=== PATIENT | male | born 1950 | race Caucasian/White ===

== ENCOUNTER → 2018-07-23 13:21 | Outpatient (CLI) | payer MEDICARE, SELFPAY | PROVIDERS: Family Provider Family Medicine; PCP Family Medicine; Visit Provider Physician Assistant | DX: L02.91 Cutaneous abscess, unspecified (principal) | CPT/HCPCS: 87070; 87075; 87077; 87147; 87186; 87205 ==

== ENCOUNTER → 2018-11-29 08:38 | Outpatient (CLI) | payer MEDICARE, SELFPAY ==
--- NOTE | 2018-11-29 | DI.MRI.S_ITS ---
PROCEDURE: MR SHOULDER LT WO CON INDICATIONS: ROTATOR CUFF TEAR OF LEFT SHOULDER TECHNIQUE: Noncontrast oblique coronal T2 fast spin echo with fat saturation, oblique sagittal T1 spin echo and T2 fast spin echo with fat saturation, axial T1 spin echo and T2 fast spin echo with fat saturation through the shoulder. COMPARISON: [facility] [place], CR, XR SHOULDER 2+ VIEWS BILATERAL, 10/14/2018, 14:47. FINDINGS: Image quality: Excellent. Rotator cuff: Partial thickness bursal sided tear of the supraspinatus tendon is noted measuring approximately 1.8 cm in AP dimension on sagittal image 17 series 10. This probably involves 50% of tendon thickness. There is articular sided infraspinatus partial-thickness tear and surface fraying. The teres minor appears intact. Thickening and tendinopathy of the subscapularis tendon without discrete tear. No atrophy of rotator cuff musculature Bones and bursae: No bone marrow contusions or fractures. Moderate acromioclavicular joint degeneration. There is also glenohumeral degenerative joint disease. The acromion demonstrates conventional anatomy, without an os acromiale. Mild subacromial/subdeltoid bursal fluid. Capsule and soft tissues: There is poor definition of the posterosuperior labrum with heterogeneous signal intensity and surrounding inflammation. This suggests age-indeterminate labral tear. The long head of the biceps tendon demonstrates normal location and morphology. The rotator interval appears normal, without fibrosis. The coracohumeral ligament is normal in thickness. Within the subscapular recess, there is a 1.5 cm low signal loose body. Adjacent smaller 8mm linear low signal presumes body or debris also noted on image 3 series 8. IMPRESSION: Low signal although probably nonossified (not definitively visible on comparison radiographs) pair of loose bodies involving the subscapular recess measuring up to 1.5 cm Partial thickness bursal sided tear of the supraspinatus tendon. Articular sided partial thickness tear of the infraspinatus tendon Subscapularis tendinopathy and thickening. Mild subacromial/subdeltoid bursitis. Age-indeterminate posterosuperior labral tear Dictated by: Joe Spring M.D. on 12/01/2018 at 8:39 Approved by: Joe Spring M.D. on 12/01/2018 at 8:50
== END ==
PROVIDERS: Family Provider Family Medicine; PCP Family Medicine; Visit Provider Orthopaedic Surgery
DX: M75.112 Incomplete rotator cuff tear or rupture of left shoulder, not specified as traumatic (principal); M75.52 Bursitis of left shoulder; S43.492A Other sprain of left shoulder joint, initial encounter
CPT/HCPCS: 73221

== ENCOUNTER → 2019-01-01 11:03 | Outpatient (CLI) | payer MEDICARE, SELFPAY | PROVIDERS: Family Provider Family Medicine; PCP Family Medicine; Visit Provider Physician Assistant | DX: L02.91 Cutaneous abscess, unspecified (principal) | CPT/HCPCS: 87070; 87077; 87147; 87186; 87205 ==

== ENCOUNTER → 2019-03-16 11:24 | Outpatient (CLI) | payer MEDICARE, SELFPAY ==
--- NOTE | 2019-03-16 11:27 | DI.RAD.S_ITS ---
PROCEDURE: XR CHEST 2V INDICATIONS: Cough TECHNIQUE: 2 views of the chest were acquired. COMPARISON: [facility], , CHEST 2 VIEW, 07/10/2016, 14:32. FINDINGS: Surgical changes and devices: None. Lungs and pleura: There is developing airspace disease identified at the right lung base. No lobar consolidation, effusion, or pneumothorax is evident. There appear to be chronic interstitial changes throughout the lungs. Mediastinum: Mediastinal contours are normal. Heart size is normal. Bones and chest wall: No suspicious bony abnormalities. Soft tissues appear unremarkable. IMPRESSION: Developing right lower lobe pneumonia. Dictated by: Lobo Guthrie M.D. on 03/16/2019 at 10:49 Approved by: Lobo Guthrie M.D. on 03/16/2019 at 10:50
== END ==
PROVIDERS: PCP Family Medicine; Visit Provider Physician Assistant
DX: J18.9 Pneumonia, unspecified organism (principal)
CPT/HCPCS: 71046

== ENCOUNTER → 2019-04-13 11:15 | Outpatient (CLI) | payer MEDICARE, SELFPAY ==
[2019-04-13 12:12] LABS: Add Manual Diff / Slide Review NO; Basophils Absolute Auto 100 /uL (0-100); Basophils Percent Auto 1.4 % (0-2); Eosinophils Absolute Auto 200 /uL (0-450); Eosinophils Percent Auto 2.6 % (2-4); Hematocrit 44.3 % (41-53); Hemoglobin 15.4 g/dL (13.5-17.5); Lymphocytes Absolute Auto 2200 /uL (1100-4500); Lymphocytes Percent Auto 37.7 % (25-40); Mean Corpuscular HGB Conc 34.8 % (30-36); Mean Corpuscular Hemoglobin 31.7 PG (26-34); Mean Corpuscular Volume 91.3 fL (80-100); Monocytes Absolute Auto 400 /uL (0-900); Monocytes Percent Auto 7.3 % (3-14); Neutrophils Absolute Auto 3000 /uL (1500-7000); Platelet Count 120 X10^3/uL (150-400); Red Blood Cell Count 4.85 X10^6/uL (4.5-5.9); Red Cell Distribution Width 12.7 % (11.6-14.8)
[2019-04-13 12:42] LABS: Alanine Aminotransferase 50 IU/L (21-72); Albumin 4.1 g/dL (3.5-5.0); Albumin Globulin Ratio 0.9 (1.0-2.8); Alkaline Phosphatase 110 U/L (38-126); Aspartate Aminotransferase 51 IU/L (17-59); BUN Creatinine Ratio 15.7 (6-22); Bilirubin Total 1.7 mg/dL (0.2-1.3); Blood Urea Nitrogen 11 mg/dL (9-20); Calcium 9.8 mg/dL (8.4-10.2); Carbon Dioxide 27 mmol/L (22-32); Chloride 103 mmol/L (98-107); Cholesterol 129 mg/dL (140-199); Estimated Glomerular Filt Rate > 60.0 mL/min (>60); Globulin 4.4 g/dL (1.7-4.1); Glucose 257 mg/dL (80-110); HDL Cholesterol 40 mg/dL (40-60); HEMOLYSIS < 15 (0-50); LDL Cholesterol Calculated 55 mg/dL (<100); Potassium 3.9 mmol/L (3.4-5.1); Sodium 139 mmol/L (137-145); Total Protein 8.5 g/dL (6.3-8.2); Triglycerides 168 mg/dL (35-150)
[2019-04-13 13:10] LABS: Thyroid Stimulating Hormone < 0.02 uIU/mL (0.47-4.68)
[2019-04-13 13:11] LABS: Prostate Specific Antigen Scrn 0.563 ng/mL (0.1-4.0)
[2019-04-13 15:55] LABS: Hemoglobin A1C% w Est Avg Glu 9.7 % (4.0-6.0)
== END ==
PROVIDERS: PCP Family Medicine; Visit Provider Family Medicine
DX: E78.2 Mixed hyperlipidemia (principal); G47.33 Obstructive sleep apnea (adult) (pediatric); I77.9 Disorder of arteries and arterioles, unspecified; K50.119 Crohn's disease of large intestine with unspecified complications; Z12.5 Encounter for screening for malignant neoplasm of prostate; Z13.29 Encounter for screening for other suspected endocrine disorder
CPT/HCPCS: 36415; 80053; 80061; 83036; 84443; 85025; G0103

== ENCOUNTER → 2019-04-28 18:46 | Outpatient (CLI) | payer MEDICARE, SELFPAY ==
--- NOTE | 2019-04-28 18:50 | DI.MRI.S_ITS ---
PROCEDURE: MR HEAD/BRAIN WO CON INDICATIONS: Memory impairment TECHNIQUE: Noncontrast axial T1 spin echo, axial T2 fast spin echo, sagittal and axial FLAIR, coronal T2 fast spin echo, axial gradient echo, axial diffusion and ADC through the brain. COMPARISON: None. FINDINGS: Image quality: Excellent. CSF Spaces: Basal cisterns are patent. No extra-axial fluid collections. Ventricles are normal in size and shape. Brain: No intracranial masses or hemorrhage. Tenorio/white matter interface is normal. Brainstem appears normal. Diffusion-weighted images demonstrate no acute ischemic insult. No chronic ischemic insults. Normal intravascular flow voids are present. Skull and face: Calvarium has normal marrow signal. Orbits appear normal. Sinuses: Sinuses and mastoids are clear. IMPRESSION: Minimal microvascular atherosclerotic change, no sign of prior stroke. No mass or hemorrhage is found. Source of memory impairment is not identified. Dictated by: Arthur Guillen M.D. on 04/29/2019 at 9:35 Approved by: Arthur Guillen M.D. on 04/29/2019 at 9:36
== END ==
PROVIDERS: PCP Family Medicine; Visit Provider Family Medicine
DX: R41.3 Other amnesia (principal)
CPT/HCPCS: 70551

== ENCOUNTER → 2019-05-07 07:43 | Outpatient (CLI) | payer MEDICARE, SELFPAY ==
[2019-05-07 08:42] LABS: Hemoglobin A1C% w Est Avg Glu 8.7 % (4.0-6.0)
[2019-05-07 08:46] LABS: BUN Creatinine Ratio 16.3 (6-22); Blood Urea Nitrogen 13 mg/dL (9-20); Calcium 9.9 mg/dL (8.4-10.2); Carbon Dioxide 27 mmol/L (22-32); Chloride 104 mmol/L (98-107); Estimated Glomerular Filt Rate > 60.0 mL/min (>60); Glucose 110 mg/dL (80-110); HEMOLYSIS < 15 (0-50); Sodium 141 mmol/L (137-145)
[2019-05-07 09:04] LABS: Free T3, Triiodothyronine Free 3.38 pg/mL (2.77-5.27); Free T4, Direct Thyroxine 0.91 ng/dL (0.78-2.19)
[2019-05-07 09:18] LABS: Thyroid Stimulating Hormone 0.02 uIU/mL (0.47-4.68)
== END ==
PROVIDERS: PCP Family Medicine; Visit Provider Family Medicine
DX: R79.89 Other specified abnormal findings of blood chemistry (principal); E11.9 Type 2 diabetes mellitus without complications
CPT/HCPCS: 36415; 80048; 83036; 84439; 84443; 84481

== ENCOUNTER → 2019-05-27 07:31 | Outpatient (CLI) | payer MEDICARE, SELFPAY ==
--- NOTE | 2019-05-27 07:35 | DI.US.S_ITS ---
PROCEDURE: US THYROID INDICATIONS: HYPERTHYROIDISM TECHNIQUE: Real-time scanning was performed of the thyroid gland, with image documentation. COMPARISON: None. FINDINGS: Right: Thyroid lobe measures 4.1 x 1.9 x 1.5 cm, and is homogeneous in echotexture. Left: Thyroid lobe measures 3.6 x 1.5 x 1.1 cm, and is homogenous in echotexture. Isthmus: 5.0 mm thick. IMPRESSION: Normal thyroid. Dictated by: Jonel DESAI Interpreted: Katie Romo MD on 05/27/2019 at 9:39 Approved by: Katie Romo M.D. on 05/27/2019 at 13:32
== END ==
PROVIDERS: PCP Family Medicine; Visit Provider Family Medicine
DX: E05.90 Thyrotoxicosis, unspecified without thyrotoxic crisis or storm (principal)
CPT/HCPCS: 76536

== ENCOUNTER → 2019-06-26 08:41 | Outpatient (CLI) | payer MEDICARE, SELFPAY ==
[2019-06-26 10:27] LABS: BUN Creatinine Ratio 21.4 (6-22); Blood Urea Nitrogen 15 mg/dL (9-20); Calcium 9.8 mg/dL (8.4-10.2); Carbon Dioxide 26 mmol/L (22-32); Chloride 103 mmol/L (98-107); Estimated Glomerular Filt Rate > 60.0 mL/min (>60); Glucose 148 mg/dL (80-110); HEMOLYSIS 18 (0-50); Potassium 3.7 mmol/L (3.4-5.1); Sodium 139 mmol/L (137-145)
[2019-06-26 10:40] LABS: Hemoglobin A1C% w Est Avg Glu 5.8 % (4.0-6.0)
[2019-06-26 11:30] LABS: Thyroid Stimulating Hormone 0.45 uIU/mL (0.47-4.68)
[2019-07-01 17:56] LABS: Anti Thyroglobulin Antibody < 1 IU/mL (< 2); Thyroid Peroxidase Antibodies 1 IU/mL (< 9)
== END ==
PROVIDERS: PCP Family Medicine; Visit Provider Family Medicine
DX: E05.90 Thyrotoxicosis, unspecified without thyrotoxic crisis or storm (principal); R73.09 Other abnormal glucose
CPT/HCPCS: 36415; 80048; 83036; 84443; 86376; 86800

== ENCOUNTER → 2019-08-27 10:07 | Outpatient (CLI) | payer MEDICARE, SELFPAY ==
[2019-08-27 11:31] LABS: BUN Creatinine Ratio 16.7 (6-22); Blood Urea Nitrogen 15 mg/dL (9-20); Calcium 10.2 mg/dL (8.4-10.2); Carbon Dioxide 26 mmol/L (22-32); Chloride 104 mmol/L (98-107); Estimated Glomerular Filt Rate > 60.0 mL/min (>60); Glucose 118 mg/dL (80-110); HEMOLYSIS < 15 (0-50); Potassium 4.4 mmol/L (3.4-5.1); Sodium 141 mmol/L (137-145)
[2019-08-27 12:12] LABS: Hemoglobin A1C% w Est Avg Glu 5.3 % (4.0-6.0)
== END ==
PROVIDERS: PCP Family Medicine; Visit Provider Family Medicine
DX: E11.9 Type 2 diabetes mellitus without complications (principal)
CPT/HCPCS: 36415; 80048; 83036; 84443

== ENCOUNTER → 2019-10-07 10:02 | Outpatient (CLI) | payer MEDICARE, SELFPAY ==
[2019-10-07 10:55] LABS: Hemoglobin A1C% w Est Avg Glu 5.3 % (4.0-6.0)
[2019-10-07 11:40] LABS: Thyroid Stimulating Hormone 0.29 uIU/mL (0.47-4.68)
== END ==
PROVIDERS: PCP Family Medicine; Visit Provider Family Medicine
DX: E11.9 Type 2 diabetes mellitus without complications (principal); E05.90 Thyrotoxicosis, unspecified without thyrotoxic crisis or storm
CPT/HCPCS: 36415; 83036; 84443

== ENCOUNTER → 2019-12-14 10:09 | Outpatient (CLI) | payer MEDICARE, SELFPAY ==
[2019-12-14 11:26] LABS: Thyroid Stimulating Hormone 3.12 uIU/mL (0.47-4.68)
== END ==
PROVIDERS: PCP Family Medicine; Referring Provider Family Medicine; Visit Provider Family Medicine
DX: E11.9 Type 2 diabetes mellitus without complications (principal); E05.90 Thyrotoxicosis, unspecified without thyrotoxic crisis or storm
CPT/HCPCS: 36415; 83036; 84443

== ENCOUNTER → 2020-03-17 08:05 | Outpatient (CLI) | payer MEDICARE, OTHER, SELFPAY ==
[2020-03-17 09:55] LABS: Hemoglobin A1C% w Est Avg Glu 5.9 % (4.0-6.0)
[2020-03-17 10:14] LABS: BUN Creatinine Ratio 20.5 (6-22); Blood Urea Nitrogen 18 mg/dL (9-20); Estimated Glomerular Filt Rate > 60.0 mL/min (>60)
[2020-03-17 10:40] LABS: Thyroid Stimulating Hormone 3.88 uIU/mL (0.47-4.68)
== END ==
PROVIDERS: PCP Family Medicine; Referring Provider Family Medicine; Visit Provider Family Medicine
DX: E11.9 Type 2 diabetes mellitus without complications (principal)
CPT/HCPCS: 36415; 82565; 83036; 84443; 84520

== ENCOUNTER → 2020-09-15 10:22 | Outpatient (CLI) | payer MEDICARE, OTHER, SELFPAY ==
[2020-09-15 12:24] LABS: Alanine Aminotransferase 47 IU/L (<50); Albumin 4.4 g/dL (3.5-5.0); Alkaline Phosphatase 98 U/L (38-126); Aspartate Aminotransferase 47 IU/L (17-59); BUN Creatinine Ratio 18.8 (6-22); Blood Urea Nitrogen 15 mg/dL (9-20); Calcium 9.7 mg/dL (8.4-10.2); Carbon Dioxide 26 mmol/L (22-32); Chloride 105 mmol/L (98-107); Estimated Glomerular Filt Rate > 60.0 mL/min (>60); Globulin 4.4 g/dL (1.7-4.1); Glucose 160 mg/dL (80-110); HEMOLYSIS < 15 (0-50); Sodium 139 mmol/L (137-145); Total Protein 8.8 g/dL (6.3-8.2)
[2020-09-15 12:25] LABS: Hemoglobin A1C% w Est Avg Glu 6.6 % (4.0-6.0)
== END ==
PROVIDERS: PCP Family Medicine; Referring Provider Registered Nurse; Visit Provider Registered Nurse
DX: E11.9 Type 2 diabetes mellitus without complications (principal)
CPT/HCPCS: 36415; 80053; 83036

== ENCOUNTER → 2020-11-15 09:08 | Outpatient (CLI) | payer MEDICARE, OTHER, SELFPAY ==
[2020-11-15 10:26] LABS: Hemoglobin A1C% w Est Avg Glu 6.1 % (4.0-6.0)
[2020-11-15 11:09] LABS: Free T4, Direct Thyroxine 0.76 ng/dL (0.78-2.19)
[2020-11-15 11:22] LABS: Thyroid Stimulating Hormone 3.36 uIU/mL (0.47-4.68)
[2020-11-15 13:21] LABS: Alanine Aminotransferase 39 IU/L (<50); Albumin 4.5 g/dL (3.5-5.0); Albumin Globulin Ratio 1.1 (1.0-2.8); Alkaline Phosphatase 86 U/L (38-126); Aspartate Aminotransferase 52 IU/L (17-59); BUN Creatinine Ratio 18.9 (6-22); Bilirubin Total 1.1 mg/dL (0.2-1.3); Blood Urea Nitrogen 14 mg/dL (9-20); Calcium 9.9 mg/dL (8.4-10.2); Carbon Dioxide 22 mmol/L (22-32); Chloride 105 mmol/L (98-107); Cholesterol 130 mg/dL (140-199); Estimated Glomerular Filt Rate > 60.0 mL/min (>60); Glucose 138 mg/dL (80-110); HDL Cholesterol 37 mg/dL (40-60); HEMOLYSIS < 15 (0-50); LDL Cholesterol Calculated 55 mg/dL (<100); Sodium 136 mmol/L (137-145); Total Protein 8.5 g/dL (6.3-8.2); Triglycerides 188 mg/dL (35-150)
== END ==
PROVIDERS: PCP Family Medicine; Referring Provider Family Medicine; Visit Provider Family Medicine
DX: E05.90 Thyrotoxicosis, unspecified without thyrotoxic crisis or storm (principal); K50.119 Crohn's disease of large intestine with unspecified complications; E78.2 Mixed hyperlipidemia
CPT/HCPCS: 80053; 80061; 83036; 84439; 84443

== ENCOUNTER → 2020-11-28 11:22 | Outpatient (CLI) | payer MEDICARE, OTHER, SELFPAY ==
[2020-11-28 13:07] LABS: COVID19 -Nasal RAPID Negative (Negative)
== END ==
PROVIDERS: PCP Family Medicine; Visit Provider Physician Assistant
DX: Z20.822 Contact with and (suspected) exposure to COVID-19 (principal)
CPT/HCPCS: 87635; C9803

== ENCOUNTER 2020-11-30 07:38 | Day surgery (SDC) | payer MEDICARE, OTHER, SELFPAY ==
[2020-11-30] VITALS (8 sets, daily range): BP systolic 101–122; BP diastolic 44–66; PULSE 63–73; RESP 8–18; TEMP 36.1–36.7; O2SAT 91–95; BMI 30.7
--- NOTE | 2020-11-30 | PATH_ITS ---
[facility] Accession Number: [id number] . 01 Material submitted: . PART A: colon - CECAL, ASCENDING COLON PART B: colon - ASCENDING COLON POLYP PART C: colon - TRANSVERSE COLON BIOPSY PART D: colon - DESCENDING, SIGMOID COLON PART E: colon - RECTO-SIGMOID BIOPSY PART F: rectum - RECTUM . 02 Diagnosis: A. Cecum, Ascending Colon, Biopsies: Mildly active colitis with patchy distortion of the crypt architecture. Please see comment. Negative for granulomas, dysplasia and malignancy. . B. Ascending Colon, Polyp, Biopsy: Tubular adenoma. Please see comment. . C. Transverse Colon, Biopsy: Minimally active colitis with rare distortion of the crypt architecture. Negative for granulomas, dysplasia and malignancy. . D. Descending Colon, Sigmoid Colon, Biopsies: Mildly active colitis. Negative for granulomas, dysplasia and malignancy. . E. Rectosigmoid Biopsy: Moderately active colitis with associated distortion of the crypt architecture. Please see comment. Negative for granulomas, dysplasia and malignancy. . F. Rectum, Biopsies: Patchy mildly active colitis with mild distortion of the crypt architecture. Negative for granulomas, dysplasia and malignancy. MRV 12/06/2020 1237 Local . 02 Comment: Part B: According to the SCENIC consensus statement on dysplasia and IBD, after complete removal of endoscopically resectable polypoid dysplastic lesions, surveillance colonoscopy is recommended rather than colectomy. . Part E: A CMV immunohistochemical stain will be performed and the results reported as an addendum. . Parts A, C-F: The morphologic appearance could be compatible with the provided clinical history of Crohn's disease, if infection and medication-related mucosal injury are excluded. . 02 Electronically signed: . Florence Keating MD, Pathologist NPI- [id number] . 01 Gross description: . Part A: CECAL, ASCENDING COLON: Received in formalin are multiple fragment(s) of gonzales, soft tissue measuring 0.1 x 0.1 x 0.1 cm to 0.3 x 0.2 x 0.2 cm submitted entirely in 1 cassette(s) Part B: ASCENDING COLON POLYP: Received in formalin are 3 fragment(s) of gonzales, soft tissue measuring 0.2 x 0.2 x 0.2 cm to 0.3 x 0.2 x 0.2 cm submitted entirely in 1 cassette(s) Part C: TRANSVERSE COLON BIOPSY: Received in formalin are 4 fragment(s) of gonzales, soft tissue measuring 0.2 x 0.2 x 0.1 cm to 0.4 x 0.4 x 0.3 cm submitted entirely in 1 cassette(s) Part D: DESCENDING, SIGMOID COLON: Received in formalin are multiple fragment(s) of gonzales, soft tissue measuring 0.1 x 0.1 x 0.1 cm to 0.6 x 0.3 x 0.3 cm submitted entirely in 1 cassette(s) Part E: RECTO-SIGMOID BIOPSY: Received in formalin are 2 fragment(s) of gonzales, soft tissue measuring 0.2 x 0.2 x 0.1 cm to 0.3 x 0.2 x 0.2 cm submitted entirely in 1 cassette(s) Part F: RECTUM: Received in formalin are 2 fragment(s) of goznales, soft tissue measuring 0.1 x 0.1 x 0.1 cm to 0.3 x 0.2 x 0.2 cm submitted entirely in 1 cassette(s) /RODRIGUEZ 12/05/20208 [facility] . 02 Pathologist provided ICD-10: K50.90 . 02 CPT . 225933, 358500, 601919, 759170, [id number], [id number], [id number] Performed at: 01 [facility] [address] [facility] [place], [place], [place] [id number] MD Humza Iraheta MD Phone: [phone] Performed at: 02 [facility] [place] [address] [place], [place] [id number] MD Florence Keating MD Phone: [phone]
[2020-11-30] MEDS: SODIUM CHLORIDE 0.9% 1,000 ML 100 ML IV (08:15)
--- NOTE | 2020-11-30 08:36 | PM.HP.1 ---
History of Present Illness History of Present Illness Chief complaint: DX COLONOSCOPY Patient History Medical History Congestion of both ears Muscle strain of left lower leg Obstructive sleep apnea of adult Snoring Surgical History History of angioplasty History of angioplasty Status post arthroscopy Family & Social History Family History Brother Heart disease High cholesterol Brother Age: 76 High cholesterol Father Heart disease Diabetes mellitus High cholesterol Mother Diabetes mellitus Heart disease High cholesterol Sister Age: 67 High cholesterol Social History: household members spouse Tobacco & Substance use: Smoking Status Former smoker alcohol intake current alcohol intake frequency holiday/special occasion Substance Use Type does not use Meds Home Medications and Allergies Home Medications Medication Instructions Recorded Confirmed Type multivitamin 1 tab PO DAILY 07/28/18 11/30/20 History aspirin 81 mg tablet,delayed 81 mg PO DAILY 04/22/19 11/30/20 History release atorvastatin 80 mg tablet 80 mg PO Q DAY #90 tab 03/22/20 11/30/20 Rx ezetimibe 10 mg tablet 10 mg PO DAILY #90 tab 03/22/20 11/30/20 Rx pantoprazole 20 mg tablet,delayed 20 mg PO QDAY #90 tab 03/22/20 11/30/20 Rx release metformin 500 mg tablet,extended 500 mg PO BID 30 Days #60 tab 09/15/20 11/30/20 Rx release 24 hr diphenhydramine 25 1 tab PO BEDTIME PRN 09/26/20 11/30/20 History mg-acetaminophen 500 mg tablet Allergies Allergy/AdvReac Type Severity Reaction Status Date / Time No Known Drug Allergies Allergy Verified 11/30/20 07:57 Review of Systems Review of Systems ROS: Yes All systems reviewed with the patient and are negative except as otherwise documented Exam Vital Signs (past 8 hours): - 11/30/20 08:01 Temperature 97.6 F Pulse Rate 73 Respiratory Rate 16 Blood Pressure 122/66 Pulse Oximetry 93 Oxygen Delivery Method Room Air Narrative Exam Narrative: Awake alert and oriented x3, pupils equal round reactive to light, oropharynx clear, heart regular rate and rhythm, lungs clear to auscultation bilaterally, abdomen nontender and nondistended, extremities without edema, no gross neurologic deficits noted Assessment & Plan Assessment & Plan narrative: Colonoscopy COVID-19 COVID-19 status: Negative
--- NOTE | 2020-11-30 09:14 | PM.OP.ENDO ---
Operative Date/Time/Diagnoses Date of procedure: 11/30/20 Procedure & Clinicians Study performed: Colonoscopy with biopsy Moderate conscious sedation was administered by the endoscopy nurse and supervised by the endoscopist. The following parameters were monitored: Oxygen saturation, heart rate, blood pressure, and response to care. 3mg midazolam and 100mcg fentanyl given. Same procedure as scheduled: Yes Indications: Crohn's disease for assessment of disease activity and to rule out dysplasia Procedure Notes Procedure in detail: Prior to the procedure, history and physical was performed, and patient medications and allergies were reviewed. Preprocedure nursing history and assessment was reviewed. Patient identification and proposed procedure were verified by the physician and nurse in the procedure room. The physical status of the patient was reassessed after the procedure. After informed consent was obtained including risks, benefits, and alternatives, the scope was passed under direct vision. Throughout the procedure, the patient's blood pressure, pulse, and oxygen saturations were monitored continuously. The colonoscope was introduced through the anus and advanced to the cecum as identified by the appendiceal orifice and ileocecal valve. The patient tolerated the procedure well. Bowel prep was deemed adequate to detect polyps greater than 5 mm. YOMAIRA and perianal examinations were unremarkable. Retroflexion in the rectum was notable for grade 1 internal hemorrhoids. Patchy erythema, trace exudates were noted in the rectum, sigmoid, descending, transverse, ascending colon and cecum. A short segment of moderately severe erythema, congestion, and friability with contact hemorrhage was noted in the rectosigmoid about 20 cm from the anal verge. The terminal ileum was normal appearing. Targeted biopsies were taken throughout the entire colon where abnormal appearing mucosa was noted. A 5 mm sessile polyp was noted in the ascending colon. This was removed in piecemeal using a cold snare and Jumbo biopsy forceps and was retrieved Impression: Internal hemorrhoids Patchy inflammation noted throughout the entire colon. Biopsied Focal moderately severe inflammatory changes noted at the rectosigmoid. Biopsied. 5 mm polyp removed from the ascending colon Normal appearing TI Sedation minutes: 26 Complications: other (No complications. EBL minimal) Post-procedure Plan for aftercare: Follow-up biopsy results Repeat colonoscopy at a date to be determined based on biopsy results Continue present medications Resume previous diet Follow-up with Dr. Leyva as previously scheduled Patient has a contact number available for emergencies. The signs and symptoms of potential delayed complications were discussed with the patient. Return to normal activities tomorrow. Written discharge instructions were provided to the patient. Discharge home with escort
[2020-11-30] MEDS: fentaNYL 250 MCG/5 ML INJ IV (09:16)
[2020-11-30] MEDS: MIDAZOLAM 5 MG/5 ML VIAL IV (09:17)
--- NOTE | 2020-11-30 10:04 | SUR.PHASEII ---
Awake, oriented, anxious to go to sleep since he was up most of the night. Stable and pleasant
== END 2020-11-30 10:05 | disposition home or self-care (01) ==
PROVIDERS: PCP Family Medicine; Referring Provider Internal Medicine; Visit Provider Internal Medicine
PROC: 0DJD8ZZ Inspection of Lower Intestinal Tract, Via Natural or Artificial Opening Endoscopic (ICD-10-PCS; CPT 45378; principal; 2020-11-30 08:30)
DX: Z12.11 Encounter for screening for malignant neoplasm of colon (principal); G47.33 Obstructive sleep apnea (adult) (pediatric); K64.8 Other hemorrhoids; K52.9 Noninfective gastroenteritis and colitis, unspecified; D12.2 Benign neoplasm of ascending colon
CPT/HCPCS: 45380; J2250; J3010

== ENCOUNTER → 2020-12-06 08:55 | Outpatient (CLI) | payer MEDICARE, OTHER, SELFPAY ==
[2020-12-06 09:33] LABS: Add Manual Diff / Slide Review NO; Basophils Absolute Auto 200 /uL (0-100); Basophils Percent Auto 2.8 % (0-2); Eosinophils Absolute Auto 300 /uL (0-450); Eosinophils Percent Auto 5.6 % (2-4); Hematocrit 39.8 % (41-53); Hemoglobin 13.9 g/dL (13.5-17.5); Lymphocytes Absolute Auto 1800 /uL (1100-4500); Lymphocytes Percent Auto 31.7 % (25-40); Mean Corpuscular Hemoglobin 32.9 PG (26-34); Mean Corpuscular Volume 93.9 fL (80-100); Monocytes Absolute Auto 500 /uL (0-900); Monocytes Percent Auto 9.3 % (3-14); Neutrophils Absolute Auto 2900 /uL (1500-7000); Neutrophils Percent Auto 50.6 % (50-75); Platelet Count 152 X10^3/uL (150-400); Red Blood Cell Count 4.23 X10^6/uL (4.5-5.9); Red Cell Distribution Width 13.4 % (11.6-14.8); White Blood Cell Count 5.7 X10^3/uL (4.5-11.0)
[2020-12-06 09:52] LABS: Alanine Aminotransferase 38 IU/L (<50); Albumin 4.4 g/dL (3.5-5.0); Albumin Globulin Ratio 1.2 (1.0-2.8); Alkaline Phosphatase 90 U/L (38-126); Aspartate Aminotransferase 46 IU/L (17-59); Bilirubin Total 1.1 mg/dL (0.2-1.3); Blood Urea Nitrogen 16 mg/dL (9-20); Carbon Dioxide 26 mmol/L (22-32); Chloride 103 mmol/L (98-107); Cholesterol 122 mg/dL (140-199); Estimated Glomerular Filt Rate > 60.0 mL/min (>60); Globulin 3.8 g/dL (1.7-4.1); Glucose 129 mg/dL (80-110); HDL Cholesterol 33 mg/dL (40-60); HEMOLYSIS < 15 (0-50); LDL Cholesterol Calculated 47 mg/dL (<100); Potassium 3.8 mmol/L (3.4-5.1); Sodium 138 mmol/L (137-145); Total Protein 8.2 g/dL (6.3-8.2); Triglycerides 211 mg/dL (35-150)
== END ==
PROVIDERS: PCP Family Medicine; Referring Provider Nurse Practitioner; Visit Provider Nurse Practitioner
DX: I25.10 Atherosclerotic heart disease of native coronary artery without angina pectoris (principal); R06.00 Dyspnea, unspecified
CPT/HCPCS: 36415; 80053; 80061; 85025

== ENCOUNTER → 2020-12-15 08:46 | Outpatient (CLI) | payer MEDICARE, OTHER, SELFPAY ==
[2020-12-15 10:28] LABS: Free T3, Triiodothyronine Free 3.72 pg/mL (2.77-5.27); Free T4, Direct Thyroxine 0.89 ng/dL (0.78-2.19)
[2020-12-15 10:42] LABS: Thyroid Stimulating Hormone 1.02 uIU/mL (0.47-4.68)
== END ==
PROVIDERS: PCP Family Medicine; Referring Provider Family Medicine; Visit Provider Family Medicine
DX: E05.90 Thyrotoxicosis, unspecified without thyrotoxic crisis or storm (principal)
CPT/HCPCS: 36415; 84439; 84443; 84481

== ENCOUNTER 2020-12-16 16:48 | Emergency (ER) | payer MEDICARE, OTHER, SELFPAY ==
[2020-12-16 16:53] VITALS: BP 171/81; PULSE 75; RESP 16; TEMP 36.7; O2SAT 94; BMI 29.2
--- NOTE | 2020-12-16 16:58 | DI.US.S_ITS ---
PROCEDURE: US ABDOMEN LIMITED INDICATIONS: severe epigastric and RUQ pain TECHNIQUE: Real-time focused scanning was performed of the gallbladder, with image documentation. COMPARISON: CT, ABDOMEN/PELVIS WITH CONTRAST, 05/21/2007, 7:54. FINDINGS: Gallbladder demonstrates no gallstones, wall thickening, or pericholecystic fluid. No intra or extrahepatic biliary ductal dilatation. The common bile duct measures up to 6 mm. The visualized pancreas appears unremarkable sonographically. The visualized liver demonstrates a nodular hepatic contour with heterogeneity of the hepatic parenchyma likely reflecting cirrhosis. IMPRESSION: 1. No evidence of cholelithiasis or cholecystitis. 2. Nodular hepatic contour and hepatic heterogeneity likely reflecting cirrhosis. Dictated by: Humza Navarrete M.D. on 12/16/2020 at 19:28 Approved by: Humza Navarrete M.D. on 12/16/2020 at 19:30
[2020-12-16 17:04] LABS: Add Manual Diff / Slide Review NO; Basophils Absolute Auto 0 /uL (0-100); Basophils Percent Auto 0.2 % (0-2); Eosinophils Absolute Auto 300 /uL (0-450); Eosinophils Percent Auto 3.9 % (2-4); Hematocrit 40.8 % (41-53); Hemoglobin 14.3 g/dL (13.5-17.5); Lymphocytes Absolute Auto 2100 /uL (1100-4500); Lymphocytes Percent Auto 25.2 % (25-40); Mean Corpuscular HGB Conc 35.1 % (30-36); Mean Corpuscular Hemoglobin 32.7 PG (26-34); Mean Corpuscular Volume 93.2 fL (80-100); Monocytes Absolute Auto 700 /uL (0-900); Monocytes Percent Auto 8.3 % (3-14); Neutrophils Absolute Auto 5100 /uL (1500-7000); Neutrophils Percent Auto 62.4 % (50-75); Platelet Count 154 X10^3/uL (150-400); Red Blood Cell Count 4.38 X10^6/uL (4.5-5.9); Red Cell Distribution Width 13.3 % (11.6-14.8); White Blood Cell Count 8.1 X10^3/uL (4.5-11.0)
--- NOTE | 2020-12-16 17:13 | ED.GENADULT ---
HPI - General Adult General Chief complaint: Abdominal Pain Stated complaint: Abodminal pain x4 hours sent by [facility] Time Seen by Provider: 12/16/20 16:51 Source: patient Mode of arrival: Ambulatory Limitations: no limitations History of Present Illness HPI narrative: 70-year-old male sent over from the walk-in clinic for evaluation of epigastric and right upper quadrant abdominal pain. Patient states the symptoms started around noon today. He was sitting on the couch when the event happened it was fairly sudden onset. He has urinated since symptoms started and that did not changes symptoms at all. He has not had a bowel movement. At the time my evaluation the symptoms have improved somewhat but not completely gone in the do seem to be now focused around his right upper quadrant. He does have a history of Crohn's disease but has never had any abdominal surgeries. He did have some nausea and a small amount of vomiting but that did not changes abdominal pain. Has not tried anything for symptoms prior to arrival. Related Data Home Medications Medication Instructions Recorded Confirmed multivitamin 1 tab PO DAILY 07/28/18 11/30/20 aspirin 81 mg tablet,delayed 81 mg PO DAILY 04/22/19 11/30/20 release diphenhydramine 25 1 tab PO BEDTIME PRN 09/26/20 11/30/20 mg-acetaminophen 500 mg tablet Previous Rx's Medication Instructions Recorded atorvastatin 80 mg tablet 80 mg PO Q DAY #90 tab 03/22/20 ezetimibe 10 mg tablet 10 mg PO DAILY #90 tab 03/22/20 pantoprazole 20 mg tablet,delayed 20 mg PO QDAY #90 tab 03/22/20 release metformin 500 mg tablet,extended 500 mg PO BID 30 Days #60 tab 09/15/20 release 24 hr Allergies Allergy/AdvReac Type Severity Reaction Status Date / Time No Known Drug Allergies Allergy Verified 12/16/20 16:58 Review of Systems Constitutional Constitutional: Denies fever(s) and Denies headache(s) ENT Ears, Nose, Mouth, and Throat: Denies headache(s) Cardiovascular Cardiovascular: Denies chest pain and Denies dyspnea Respiratory Respiratory: Denies dyspnea Gastrointestinal Gastrointestinal: Reports abdominal pain, Denies change in bowel habits, Reports nausea and Reports vomiting Genitourinary Genitourinary: Denies dysuria Genitourinary: Denies dysuria Musculoskeletal Musculoskeletal: Denies arthralgias and Denies myalgias Integumentary/Breasts Skin/Breast: Denies rash Neurologic Neurologic: Denies behavioral changes and Denies headache(s) Psychiatric Psychiatric: Denies behavioral changes Hematologic/Lymphatic On Anticoagulants: No Allergic/Immunologic Allergic/Immunologic: Denies urticaria Patient History Medical History Congestion of both ears Muscle strain of left lower leg Obstructive sleep apnea of adult Snoring Surgical History History of angioplasty History of angioplasty Status post arthroscopy Family History Brother Heart disease High cholesterol Brother Age: 76 High cholesterol Father Heart disease Diabetes mellitus High cholesterol Mother Diabetes mellitus Heart disease High cholesterol Sister Age: 67 High cholesterol Social History household members: spouse Smoking Status: Former smoker Tobacco: How many years used: 44 alcohol intake: current substance use type: former substance user and marijuana Smoking Status: Former smoker alcohol intake frequency: holidays/special occasions only Substance Use Type: does not use Exam Initial Vital Signs Initial Vital Signs: Vital Signs Temperature 98.1 F 12/16/20 16:53 Pulse Rate 75 12/16/20 16:53 Respiratory Rate 16 12/16/20 16:53 Blood Pressure 171/81 H 12/16/20 16:53 Pulse Oximetry 94 12/16/20 16:53 Const General: cooperative and comfortable Limitations: mental status not altered HENMT Head: normal to inspection and normocephalic Resp Effort & Inspection: normal respiratory effort Auscultation: clear to auscultation bilaterally Cardio Rate: regular rate Rhythm: regular rhythm GI Inspection: non-distended Palpation: soft, No firm and tender (Right upper quadrant, negative Santamaria sign) Back/Spine/Pelvis Back: No CVA tenderness Skin Lesions: no lesions Rashes: no rashes Neuro General: patient alert, patient awake and patient oriented x3 Cognition: normal cognition Speech: speech normal Extrem General: normal to inspection and capillary refill normal Psych Appearance: grossly normal and well kempt Course Orders Ordered: ED Orders 12/16/20 16:52 Complete Blood Count AUTO DIFF Stat Comprehensive Metabolic Panel Stat Lipase Stat 12/16/20 16:58 US abdomen limited Stat EKG-12 Lead Stat Sodium Chloride (Normal Saline 0.9%) 1,000 mls @ 125 mls/hr IV CONT JH Last Admin: 12/16/20 17:23 Dose: Not Given Documented by: PEPE Vital Signs Vital signs: Vital Signs - 8 hr 12/16/20 16:53 Temperature 98.1 F Pulse Rate 75 Respiratory Rate 16 Blood Pressure 171/81 H Pulse Oximetry 94 Medical Decision Making Lab Data Lab results reviewed: Yes I reviewed the patient's lab results. Result diagrams: 12/16/20 16:52 12/16/20 16:52 Labs: Lab Results 12/16/20 12/16/20 Range/Units 16:52 16:52 WBC 8.1 (4.5-11.0) X10^3/uL RBC 4.38 L (4.5-5.9) X10^6/uL Hgb 14.3 (13.5-17.5) g/dL Hct 40.8 L (41-53) % MCV 93.2 (80-100) fL MCH 32.7 (26-34) PG MCHC 35.1 (30-36) % RDW 13.3 (11.6-14.8) % Plt Count 154 (150-400) X10^3/uL Neut % (Auto) 62.4 (50-75) % Lymph % (Auto) 25.2 (25-40) % Dawson % (Auto) 8.3 (3-14) % Eos % (Auto) 3.9 (2-4) % Baso % (Auto) 0.2 (0-2) % Neut # (Auto) 5100 (6055-5506) /uL Lymph # (Auto) 2100 (1374-2457) /uL Dawson # (Auto) 700 (0-900) /uL Eos # (Auto) 300 (0-450) /uL Baso # (Auto) 0 (0-100) /uL Sodium 136 L (137-145) mmol/L Potassium 3.9 (3.4-5.1) mmol/L Chloride 103 (98-107) mmol/L Carbon Dioxide 24 (22-32) mmol/L BUN 11 (9-20) mg/dL Creatinine 0.66 (0.66-1.25) mg/dL Estimated GFR > 60.0 (>60) mL/min BUN/Creatinine Ratio 16.7 (6-22) Glucose 117 H (80-110) mg/dL Calcium 9.7 (8.4-10.2) mg/dL Total Bilirubin 1.1 (0.2-1.3) mg/dL AST 50 (17-59) IU/L ALT 41 (<50) IU/L Alkaline Phosphatase 90 (38-126) U/L Total Protein 8.6 H (6.3-8.2) g/dL Albumin 4.5 (3.5-5.0) g/dL Globulin 4.1 (1.7-4.1) g/dL Albumin/Globulin Ratio 1.1 (1.0-2.8) Lipase 198 (23-300) U/L Urine Dip Bedside Urine Glucose Negative Bedside Urine Bilirubin - Negative Bedside Urine Ketone - Negative Urine Specific [place] 1.020 Bedside Urine Occult Blood - Negative Bedside Urine pH 6.5 Bedside Urine Protein - Negative Bedside Urine Urobilinogen - Negative Bedside Urine Nitrite - Negative Bedside Urine Leukocytes - Negative Esterase Point of care testing: Urine Dip Bedside Urine Glucose Negative Bedside Urine Bilirubin - Negative Bedside Urine Ketone - Negative Urine Specific [place] 1.020 Bedside Urine Occult Blood - Negative Bedside Urine pH 6.5 Bedside Urine Protein - Negative Bedside Urine Urobilinogen - Negative Bedside Urine Nitrite - Negative Bedside Urine Leukocytes - Negative Esterase ECG Data Attestation: I personally reviewed and interpreted this ECG as follows: Prior ECG tracings: not available for review Interpretation: Sinus rhythm Ventricular rate is 70 Normal axis Normal QRS Normal QTC No ST T wave changes MDM Narrative Medical decision making narrative: Patient does have a relatively benign abdominal exam although he admits that his symptoms at the time of my evaluation are better than what they were earlier today. The discomfort does seem to be now localized to the right upper quadrant. He is afebrile. He does not have a leukocytosis and his lipase and LFTs are unremarkable. Right upper quadrant ultrasound is ordered for evaluation of gallbladder pathology. Care turned over to Dr. restrepo a change of shift to follow up and disposition. Discharge Plan Departure Prescriptions: No Action metformin 500 mg tablet extended release 24 hr 500 mg PO BID 30 Days Qty: 60 RF: 2 multivitamin [Multiple Vitamins] tablet 1 tab PO DAILY RF: 0 aspirin 81 mg tablet,delayed release (DR/EC) 81 mg PO DAILY RF: 0 atorvastatin [Lipitor] 80 mg tablet 80 mg PO Q DAY Qty: 90 RF: 3 ezetimibe [Zetia] 10 mg tablet 10 mg PO DAILY Qty: 90 RF: 3 pantoprazole [Protonix] 20 mg tablet,delayed release (DR/EC) 20 mg PO QDAY Qty: 90 RF: 3 diphenhydramine-acetaminophen [Tylenol PM Extra Strength] 25-500 mg tablet 1 tab PO BEDTIME PRN (Reason: Sleep) RF: 0
[2020-12-16 17:16] LABS: Alanine Aminotransferase 41 IU/L (<50); Albumin 4.5 g/dL (3.5-5.0); Albumin Globulin Ratio 1.1 (1.0-2.8); Alkaline Phosphatase 90 U/L (38-126); Aspartate Aminotransferase 50 IU/L (17-59); BUN Creatinine Ratio 16.7 (6-22); Bilirubin Total 1.1 mg/dL (0.2-1.3); Blood Urea Nitrogen 11 mg/dL (9-20); Calcium 9.7 mg/dL (8.4-10.2); Carbon Dioxide 24 mmol/L (22-32); Chloride 103 mmol/L (98-107); Estimated Glomerular Filt Rate > 60.0 mL/min (>60); Globulin 4.1 g/dL (1.7-4.1); Glucose 117 mg/dL (80-110); HEMOLYSIS < 15 (0-50); Lipase 198 U/L (23-300); Potassium 3.9 mmol/L (3.4-5.1); Sodium 136 mmol/L (137-145); Total Protein 8.6 g/dL (6.3-8.2)
== END 2020-12-16 20:10 | disposition home or self-care (01) ==
PROVIDERS: Emergency Medicine; Emergency Provider Emergency Medicine; PCP Family Medicine
DX: R10.11 Right upper quadrant pain (principal); R03.0 Elevated blood-pressure reading, without diagnosis of hypertension
CPT/HCPCS: 76705; 80053; 81003; 83690; 85025; 93005; 99283; 99284

== ENCOUNTER → 2020-12-19 10:04 | Outpatient (CLI) | payer MEDICARE, OTHER, SELFPAY ==
--- NOTE | 2020-12-19 10:06 | DI.ECHO.S_ITS ---
[place] [facility] +---------+ : : [address] : : : : [id number] : : : : Phone: [phone]+ Echocardiogram Report + + :Name: TIMOTEO VASQUEZ Study Date: 12/19/2020 Height: 71 in : :[facility] ReadingLocation: Weight: 210 lb : : Gender: Male BSA: 2.2 m2 : :: 1950 Age: 70 yrs BP: 127/68 mmHg: :Reason For Study: CAD : :Ordering Physician: : :TATIANNA ELDRIDGE Performed By: Dimitri Martinez : :Referring: TATIANNA ELDRIDGE : + + Interpretation Summary Normal left ventricle size with ejection fraction 65-70%. There is discrete nodular thickening of the non- coronary cusp. No valvular regurgitation. Comparison is made with the echocardiogram of 01/28/2015, there is new reduced mobility of the non-coronary cusp. Procedure: A two-dimensional transthoracic echocardiogram with color flow and Doppler was performed. The study quality was technically adequate. Comparison is made with the echocardiogram of 01/28/2015. The patient was in sinus rhythm with heart rates between 67-73 bpm during the exam. Left Ventricle: The left ventricle is normal in size and wall thickness. The ejection fraction is estimated to be 65-70%. There are no focal wall motion abnormalities. Diastolic function could not be accurately assessed due to unobtainable data. Right Ventricle: The right ventricle is normal in size and function. Atria: Both atria are normal in size. There is no Doppler evidence for an interatrial shunt. Mitral Valve: The mitral valve leaflets appear mildly thickened, but open well. There is trace mitral regurgitation. Aortic Valve: There is discrete nodular thickening of the non- coronary cusp. No aortic regurgitation is present. Tricuspid Valve: The tricuspid valve is normal in structure and function. There is a trace or physiologic amount of tricuspid regurgitation. Pulmonary artery pressures cannot be estimated because of the lack of a measurable TR jet velocity but the IVC suggests a CVP of around 3 mmHg. Pulmonic Valve: The pulmonic valve is not well seen, but is grossly normal. There is trace pulmonic regurgitation. Great Vessels: The aortic root is normal size. The dimensions of the ascending aorta are normal. The IVC is of normal diameter and collapses greater than 50% with a sniff. This suggests a low right atrial pressure of 3 mm Hg. Pericardium/ Pleura There is no pericardial effusion. There is no pleural effusion. MMode/2D Measurements & Calculations LVIDd: 5.1 cm LVOT diam: 2.3 cm LVIDs: 3.3 cm Ao root diam: 3.2 cm FS: 35.6 % asc Aorta Diam: 2.9 cm IVSd: 1.0 cm LVPWd: 1.1 cm LV lyon. diameter/BSA (cm/m^2): 2.4 LV sys. diameter/BSA (cm/m^2): 1.5 LA A2 area: 15.5 cm2 RA area: 13.8 cm2 LA A4 area: 16.9 cm2 LA length (vol): 4.4 cm LA vol: 50.2 ml LA vol index: 23.3 ml/m2 RVD1 (basal): 3.5 cm TAPSE: 2.6 cm Doppler Measurements & Calculations Ao V2 max: 180.6 cm/sec LVOT Max Mike: 128.3 cm/sec Ao V2 mean: 131.0 cm/sec LV V1 max P.6 mmHg Ao max P.1 mmHg LV V1 VTI: 26.2 cm Ao mean P.6 mmHg LEXII(I,D): 3.1 cm2 Ao V2 VTI: 36.0 cm LEXII(V,D): 3.0 cm2 sev ratio: 0.73 LEXII indexed to BSA (cm^2/m^2): 1.4 MV E max mike: 67.5 cm/sec PA V2 max: 100.4 cm/sec MV A max mike: 89.8 cm/sec PA V2 mean: 68.4 cm/sec MV E/A: 0.75 PA mean P.1 mmHg Med Peak E' Mike: 5.3 cm/sec PA pr(Accel): 27.1 mmHg E/E' med: 12.8 Lat Peak E' Mike: 7.4 cm/sec E/E' lat: 9.2 E/e' average: 11.0 MV dec time: 0.32 sec SV(LVOT): 111.1 ml Electronically signed by: Can Lawson on Reading Physician:12/20/2020 08:39 AM
== END ==
PROVIDERS: PCP Family Medicine; Referring Provider Family Medicine; Visit Provider Family Medicine
DX: H81.10 Benign paroxysmal vertigo, unspecified ear (principal); I25.10 Atherosclerotic heart disease of native coronary artery without angina pectoris; I65.21 Occlusion and stenosis of right carotid artery
CPT/HCPCS: 93306

== ENCOUNTER 2021-02-13 13:58 | Inpatient (IN) | payer MEDICARE, OTHER, SELFPAY ==
[2021-02-13] VITALS (16 sets, daily range): BP systolic 143–171; BP diastolic 69–79; PULSE 64–77; RESP 14–27; TEMP 36.1–36.6; O2SAT 91–96; BMI 26.9
--- NOTE | 2021-02-13 14:01 | DI.RAD.S_ITS ---
PROCEDURE: XR CHEST 1V INDICATIONS: Possible stroke TECHNIQUE: One view of the chest was acquired. COMPARISON: [facility], CR, XR CHEST 2V, 03/16/2019, 11:35. FINDINGS: Surgical changes and devices: None. Lungs and pleura: Low lung volumes are noted. This causes a crowded appearance to the lung markings and limits evaluation. Generalized interstitial prominence can be seen. No pneumothorax is seen. Mild blunting of the costophrenic angles can be seen Mediastinum: Mediastinal contours appear normal. Heart size is mildly enlarged. Bones and chest wall: No suspicious bony lesions. Age-appropriate bony degenerative changes are seen. Overlying soft tissues appear unremarkable. IMPRESSION: Interstitial prominence is seen throughout. The interstitial prominence is nonspecific, yet may be related to pulmonary edema. Mild blunting of the costophrenic angles is seen, which is attributed to small pleural effusions. Differential diagnosis includes atelectasis, however. Mild cardiomegaly. Dictated by: Antonio Celis M.D. on 02/13/2021 at 13:25 Approved by: Antonio Celis M.D. on 02/13/2021 at 13:26
--- NOTE | 2021-02-13 14:01 | DI.CT.S_ITS ---
PROCEDURE: CT STROKE INDICATIONS: confused, non TPA patient TECHNIQUE: Noncontrast 4.5 mm thick angled axial sections acquired from the foramen magnum to the vertex, with coronal reformats. For radiation dose reduction, the following was used: automated exposure control, adjustment of mA and/or kV according to patient size. COMPARISON: [facility], MR, MR HEAD/BRAIN WO CON, 04/28/2019, 18:53. [facility], CT, BRAIN W/O CONTRAST, 01/27/2015, 13:52. FINDINGS: Image quality: Excellent. CSF spaces: Basal cisterns are patent. No extra-axial fluid collections. The ventricles are symmetric in size and shape. Brain: No intracranial bleeds or masses. There is cerebral volume loss for age, with resultant ventricular and sulcal prominence. There are periventricular and deep white matter chronic small vessel ischemic changes. There is intracranial internal carotid artery atherosclerosis. Skull and face: Calvarium and visualized facial bones appear intact, without suspicious lesions. Sinuses: Visualized sinuses and mastoids are clear. Mild leftward nasal septal deviation is incidentally noted. IMPRESSION: No acute intracranial process is seen. No acute intracranial hemorrhage is seen. No mass effect is seen. No hydrocephalus. If there is strong clinical suspicion for an acute stroke, please consider a brain MRI for further evaluation, as it is more sensitive (assuming that there is no contraindication to MRI). This study fulfills neurological imaging criteria for inclusion or exclusion of acute stroke therapies based on available published neurological guidelines. Dictated by: Atnonio Celis M.D. on 02/13/2021 at 13:42 Approved by: Antonio Celis M.D. on 02/13/2021 at 13:45
[2021-02-13 14:18] LABS: Add Manual Diff / Slide Review NO; Basophils Absolute Auto 100 /uL (0-100); Basophils Percent Auto 1.1 % (0-2); Eosinophils Absolute Auto 0 /uL (0-450); Eosinophils Percent Auto 0.3 % (2-4); Hematocrit 41.4 % (41-53); Hemoglobin 14.9 g/dL (13.5-17.5); Lymphocytes Absolute Auto 1200 /uL (1100-4500); Lymphocytes Percent Auto 14.2 % (25-40); Mean Corpuscular HGB Conc 36.1 % (30-36); Mean Corpuscular Volume 88.8 fL (80-100); Monocytes Absolute Auto 700 /uL (0-900); Monocytes Percent Auto 7.9 % (3-14); Neutrophils Absolute Auto 6700 /uL (1500-7000); Neutrophils Percent Auto 76.5 % (50-75); Platelet Count 134 X10^3/uL (150-400); Red Blood Cell Count 4.66 X10^6/uL (4.5-5.9); Red Cell Distribution Width 14.1 % (11.6-14.8); White Blood Cell Count 8.7 X10^3/uL (4.5-11.0)
[2021-02-13 14:25] LABS: INR 1.2 (0.9-1.3); Prothrombin Time 13.7 SECONDS (10.1-12.7)
[2021-02-13 14:28] LABS: PTT Partial Thromboplastin Tim 30 SECONDS (26.4-36.2)
[2021-02-13 14:51] LABS: Alanine Aminotransferase 83 IU/L (<50); Albumin 4.3 g/dL (3.5-5.0); Alkaline Phosphatase 120 U/L (38-126); Aspartate Aminotransferase 96 IU/L (17-59); BUN Creatinine Ratio 23.3 (6-22); Bilirubin Total 1.3 mg/dL (0.2-1.3); Blood Urea Nitrogen 10 mg/dL (9-20); Calcium 9.2 mg/dL (8.4-10.2); Carbon Dioxide 22 mmol/L (22-32); Chloride 86 mmol/L (98-107); Creatine Kinase 79 U/L (55-170); Estimated Glomerular Filt Rate > 60.0 mL/min (>60); Globulin 4.1 g/dL (1.7-4.1); Glucose 156 mg/dL (80-110); HEMOLYSIS 16 (0-50); Potassium 3.8 mmol/L (3.4-5.1); Total Protein 8.4 g/dL (6.3-8.2)
--- NOTE | 2021-02-13 14:56 | ED_ITS ---
HPI - Neuro Symptoms/Deficit General Chief Complaint: Neuro Symptoms/Deficit Stated Complaint: Confusion/Weakness Time Seen by Provider: 02/13/21 14:56 Source: family and EMS Mode of arrival: EMS Limitations: altered mental status History of Present Illness HPI Narrative: 1-year-old male who has had increasing difficulty with movement for the past several weeks particular S2 and became acutely confused over the pa st 2 or 3 days. Patient's states that he started mesalamine and budesonide 2 weeks ago for Crohn's. Otherwise he has not had any other new medication changes. He does have a coronary artery disease history of cardiac stents 25 years ago. He has had evaluation and been told they P are stable. He has diabetes, hypertension dyslipidemia. He has some known fibroids in his lung according to his and they are planning to biopsy 1 of them at [facility] shortly. Patient has not any fevers or chills. No headache, no chest pain, known abdominal pain. Patient has occasionally had shortness of breath when ambulating. No nausea or vomiting. No diarrhea constipation, urinary symptoms. He typically walks with a cane is now requiring 2 canes and his states that his gait his significantly worsened. She is not appreciate any dysarthria but does note he seems confused which is not normal for him. Related Data Home Medications Medication Instructions Recorded Confirmed multivitamin 1 tab PO DAILY 07/28/18 02/13/21 aspirin 81 mg tablet,delayed 81 mg PO DAILY 04/22/19 02/13/21 release calcium carbonate 600 mg (1,500 1 cap PO DAILY cap 01/18/21 02/13/21 mg)-vitamin D3 500 unit capsule diphenhydramine 25 2 tab PO BEDTIME PRN tab 01/18/21 02/13/21 mg-acetaminophen 500 mg tablet vitamin B complex 1 tab PO DAILY 01/18/21 02/13/21 budesonide 02/13/21 mesalamine 02/13/21 psyllium [Metamucil] 1 packet 02/13/21 Previous Rx's Medication Instructions Recorded atorvastatin 80 mg tablet 80 mg PO Q DAY #90 tab 03/22/20 ezetimibe 10 mg tablet 10 mg PO DAILY #90 tab 03/22/20 pantoprazole 20 mg tablet,delayed 20 mg PO QDAY #90 tab 03/22/20 release metformin 500 mg tablet,extended 500 mg PO BID 30 Days #180 tab 01/13/21 release 24 hr Allergies Allergy/AdvReac Type Severity Reaction Status Date / Time No Known Drug Allergies Allergy Verified 01/18/21 14:41 Review of Systems Review of Systems ROS Unobtainable: Unobtainable due to mental status/LOC Patient History Medical History Carotid bruit (08/06/11) Congestion of both ears Diaphragmatic hernia (08/06/11) Diverticulosis (08/06/11) Insomnia, persistent Muscle strain of left lower leg Obstructive sleep apnea of adult (~08/06/11) Snoring Surgical History History of angioplasty History of angioplasty Status post arthroscopy Family History Brother Heart disease High cholesterol Brother Age: 76 High cholesterol Father Heart disease Diabetes mellitus High cholesterol Mother Diabetes mellitus Heart disease High cholesterol Sister Age: 67 High cholesterol Social History household members: spouse Smoking Status: Former smoker Tobacco: How many years used: 44 alcohol intake: current substance use type: former substance user and marijuana Smoking Status: Former smoker alcohol intake frequency: holidays/special occasions only Substance Use Type: does not use Exam Narrative Exam Narrative: GEN: well nourished, well appearing male, alert, answers some questions but defers most to his , patient appears to be in mild distress.Patient is confused on examination. He is also slow to answer questions. HEENT: Atraumatic, pupils are equal round reactive to light, extraocular movements are intact, nares are clear, no facial droop. HEART: Regular rate and rhythm without murmur, clicks, rubs. Pulses are equal in upper and lower extremities LUNGS:Lungs clear to auscultation, no wheezes, rales, crackles, chest moves symmetrically, no tachypnea ABD:bowel sounds normal, soft, non-tender, no guarding, rebound, rigidity, no masses noted, no hepatosplenomegaly :No CVA tenderness MSCL: Non-tender, no muscle atrophy, muscles strength 5/5 upper and lower extremities NEURO:CN 2-12 intact, sensation normal, reflexes 2/4 upper and lower extremities. SKIN: Rash or other changes noted. Initial Vital Signs Initial Vital Signs: Vital Signs Pulse Rate 73 02/13/21 14:38 Pulse Oximetry 93 02/13/21 14:38 Course Orders Ordered: ED Orders 02/13/21 14:01 CT Stroke Stat XR chest 1V Stat EKG-12 Lead Stat 02/13/21 14:10 Complete Blood Count AUTO DIFF Stat Comprehensive Metabolic Panel Stat Partial Thromboplastin Time Stat Prothrombin Time INR Stat Troponin & CK Cardiac Panel Stat 02/13/21 14:27 Blood Culture Stat 02/13/21 14:49 COVID19 - ADMIT ([employer] swab/PCR) Stat 02/13/21 16:23 Sodium Urine Random Stat 02/13/21 16:25 Osmolality Urine Stat Urinalysis and Microscopic Stat Urine Drug Screen, Rapid Stat Acetaminophen (Acetaminophen 325 Mg Tablet) 650 mg PO Q6HR PRN PRN Reason: Fever/Mild Pain (1-3) Aspirin (Aspirin Ec 81 Mg Tablet) 81 mg PO DAILY [facility] Atorvastatin Calcium (Atorvastatin 20 Mg Tablet) 80 mg PO DAILY JH Ezetimibe (Ezetimibe 10 Mg Tablet) 10 mg PO DAILY [facility] Enoxaparin Sodium (Enoxaparin 40 Mg/0.4 Ml Syringe) 40 mg SUBCUT DAILY [facility] Sodium Chloride (Hypertonic Saline 3%) 500 mls @ 20 mls/hr IV CONT JH Stop: 02/14/21 00:29 Last Admin: 02/13/21 20:02 Dose: 20 mls/hr Documented by: TRACEY Ondansetron HCl (Ondansetron 4 Mg/2 Ml Inj) 4 mg IV Q8HR PRN PRN Reason: Nausea And Vomiting Discontinued Medications Sodium Chloride (Normal Saline 0.9%) 1,000 mls @ 1,000 mls/hr IV BOLUS ONE Stop: 02/13/21 16:03 Last Infusion: 02/13/21 16:26 Dose: 0 mls/hr Documented by: Admin: 02/13/21 15:11 Dose: 1,000 mls/hr Documented by: CHICHO Sodium Chloride (Hypertonic Saline 3%) 100 mls @ 600 mls/hr IV NOW ONE Stop: 02/13/21 17:09 Last Infusion: 02/13/21 17:06 Dose: 0 mls/hr Documented by: Admin: 02/13/21 16:52 Dose: 600 mls/hr Documented by: CHICHO Consultations Consultation #1: Dr. Flores Accepts for inpatient admission. He asked that we give 3% on 100 mL aliquot x 1 and reassess. Vital Signs Vital signs: Vital Signs - 8 hr 02/13/21 14:38 02/13/21 14:39 02/13/21 14:45 Pulse Rate 73 71 69 Respiratory Rate 14 15 Blood Pressure 169/79 H Pulse Oximetry 93 93 91 02/13/21 15:00 02/13/21 15:15 02/13/21 15:30 Pulse Rate 67 70 Respiratory Rate 16 18 Blood Pressure 158/72 H 169/79 H Pulse Oximetry 91 91 02/13/21 15:45 02/13/21 16:00 02/13/21 16:15 Pulse Rate 77 67 68 Respiratory Rate 27 H 15 15 Blood Pressure 158/78 H Pulse Oximetry 92 92 91 02/13/21 16:30 02/13/21 16:45 Pulse Rate 67 69 Respiratory Rate 16 21 Blood Pressure 171/77 H Pulse Oximetry 92 93 MDM - Neuro Symptoms/Deficit Lab Data Attestation: I reviewed the patient's lab results. Result diagrams: 02/13/21 14:10 02/13/21 18:50 Labs: Lab Results 02/13/21 02/13/21 02/13/21 Range/Units 14:10 14:10 14:10 WBC 8.7 (4.5-11.0) X10^3/uL RBC 4.66 (4.5-5.9) X10^6/uL Hgb 14.9 (13.5-17.5) g/dL Hct 41.4 (41-53) % MCV 88.8 (80-100) fL MCH 32.0 (26-34) PG MCHC 36.1 H (30-36) % RDW 14.1 (11.6-14.8) % Plt Count 134 L (150-400) X10^3/uL Neut % (Auto) 76.5 H (50-75) % Lymph % (Auto) 14.2 L (25-40) % [place] % (Auto) 7.9 (3-14) % Eos % (Auto) 0.3 L (2-4) % Baso % (Auto) 1.1 (0-2) % Neut # (Auto) 6700 (9484-4253) /uL Lymph # (Auto) 1200 (8782-1544) /uL [place] # (Auto) 700 (0-900) /uL Eos # (Auto) 0 (0-450) /uL Baso # (Auto) 100 (0-100) /uL PT 13.7 H (10.1-12.7) SECONDS INR 1.2 (0.9-1.3) APTT 30 (26.4-36.2) SECONDS Sodium 118 L* (137-145) mmol/L Potassium 3.8 (3.4-5.1) mmol/L Chloride 86 L (98-107) mmol/L Carbon Dioxide 22 (22-32) mmol/L BUN 10 (9-20) mg/dL Creatinine 0.43 L (0.66-1.25) mg/dL Estimated GFR > 60.0 (>60) mL/min BUN/Creatinine Ratio 23.3 H (6-22) Glucose 156 H (80-110) mg/dL Calcium 9.2 (8.4-10.2) mg/dL Total Bilirubin 1.3 (0.2-1.3) mg/dL AST 96 H (17-59) IU/L ALT 83 H (<50) IU/L Alkaline Phosphatase 120 (38-126) U/L Total Creatine Kinase 79 (55-170) U/L CK-MB (CK-2) TNP CK-MB (CK-2) Rel Index TNP Troponin I 0.014 (0.01-0.034) ng/mL Total Protein 8.4 H (6.3-8.2) g/dL Albumin 4.3 (3.5-5.0) g/dL Globulin 4.1 (1.7-4.1) g/dL Albumin/Globulin Ratio 1.0 (1.0-2.8) Urine Color Urine Appearance Urine pH (4.5-8.0) Ur Specific [place] (1.000-1.035) Urine Protein (Negative) Urine Glucose (UA) (Negative) g/dL Urine Ketones (NEGATIVE) Urine Occult Blood (Negative) Urine Nitrate (Negative) Urine Bilirubin (NEGATIVE) Urine Urobilinogen (0.2) E.U./dL Ur Leukocyte Esterase (NEGATIVE) Urine RBC (0-5/HPF) Urine WBC (0-5/HPF) Ur Squamous Epith Cells (0-5/HPF) Urine Bacteria (None) Ur Culture Indicated? Ur Random Sodium (30-90) mmol/L U Opiates 300ng/mL cut (Negative) Ur Oxycodone Screen (Negative) Urine Methadone Screen (Negative) Ur Barbiturates Screen (Negative) U Tricyclic Antidepress (Negative) Ur Phencyclidine Scrn (Negative) Ur Amphetamines Screen (Negative) U Methamphetamines Scrn (Negative) Ur MDMA Scrn (Ecstasy) (Negative) U Benzodiazepines Scrn (Negative) Urine Cocaine Screen (Negative) U Marijuana (THC) Screen (Negative) SARS-CoV-2 (PCR) (Negative) 02/13/21 02/13/21 02/13/21 Range/Units 14:49 16:23 16:25 WBC (4.5-11.0) X10^3/uL RBC (4.5-5.9) X10^6/uL Hgb (13.5-17.5) g/dL Hct (41-53) % MCV (80-100) fL MCH (26-34) PG MCHC (30-36) % RDW (11.6-14.8) % Plt Count (150-400) X10^3/uL Neut % (Auto) (50-75) % Lymph % (Auto) (25-40) % [place] % (Auto) (3-14) % Eos % (Auto) (2-4) % Baso % (Auto) (0-2) % Neut # (Auto) (7707-4432) /uL Lymph # (Auto) (7308-2255) /uL [place] # (Auto) (0-900) /uL Eos # (Auto) (0-450) /uL Baso # (Auto) (0-100) /uL PT (10.1-12.7) SECONDS INR (0.9-1.3) APTT (26.4-36.2) SECONDS Sodium (137-145) mmol/L Potassium (3.4-5.1) mmol/L Chloride (98-107) mmol/L Carbon Dioxide (22-32) mmol/L BUN (9-20) mg/dL Creatinine (0.66-1.25) mg/dL Estimated GFR (>60) mL/min BUN/Creatinine Ratio (6-22) Glucose (80-110) mg/dL Calcium (8.4-10.2) mg/dL Total Bilirubin (0.2-1.3) mg/dL AST (17-59) IU/L ALT (<50) IU/L Alkaline Phosphatase (38-126) U/L Total Creatine Kinase (55-170) U/L CK-MB (CK-2) CK-MB (CK-2) Rel Index Troponin I (0.01-0.034) ng/mL Total Protein (6.3-8.2) g/dL Albumin (3.5-5.0) g/dL Globulin (1.7-4.1) g/dL Albumin/Globulin Ratio (1.0-2.8) Urine Color Yellow Urine Appearance Clear Urine pH 7.5 (4.5-8.0) Ur Specific [place] 1.020 (1.000-1.035) Urine Protein 1+ H (Negative) Urine Glucose (UA) 1+ H (Negative) g/dL Urine Ketones Negative (NEGATIVE) Urine Occult Blood Negative (Negative) Urine Nitrate Negative (Negative) Urine Bilirubin Negative (NEGATIVE) Urine Urobilinogen 4.0 H (0.2) E.U./dL Ur Leukocyte Esterase Negative (NEGATIVE) Urine RBC 0-1/hpf (0-5/HPF) Urine WBC None seen (0-5/HPF) Ur Squamous Epith Cells 0-1 /hpf (0-5/HPF) Urine Bacteria Occasional (0-1) (None) Ur Culture Indicated? Cult not indicated Ur Random Sodium 118 H (30-90) mmol/L U Opiates 300ng/mL cut (Negative) Ur Oxycodone Screen (Negative) Urine Methadone Screen (Negative) Ur Barbiturates Screen (Negative) U Tricyclic Antidepress (Negative) Ur Phencyclidine Scrn (Negative) Ur Amphetamines Screen (Negative) U Methamphetamines Scrn (Negative) Ur MDMA Scrn (Ecstasy) (Negative) U Benzodiazepines Scrn (Negative) Urine Cocaine Screen (Negative) U Marijuana (THC) Screen (Negative) SARS-CoV-2 (PCR) Negative (Negative) 02/13/21 Range/Units 16:25 WBC (4.5-11.0) X10^3/uL RBC (4.5-5.9) X10^6/uL Hgb (13.5-17.5) g/dL Hct (41-53) % MCV (80-100) fL MCH (26-34) PG MCHC (30-36) % RDW (11.6-14.8) % Plt Count (150-400) X10^3/uL Neut % (Auto) (50-75) % Lymph % (Auto) (25-40) % [place] % (Auto) (3-14) % Eos % (Auto) (2-4) % Baso % (Auto) (0-2) % Neut # (Auto) (6183-1959) /uL Lymph # (Auto) (6600-1843) /uL [place] # (Auto) (0-900) /uL Eos # (Auto) (0-450) /uL Baso # (Auto) (0-100) /uL PT (10.1-12.7) SECONDS INR (0.9-1.3) APTT (26.4-36.2) SECONDS Sodium (137-145) mmol/L Potassium (3.4-5.1) mmol/L Chloride (98-107) mmol/L Carbon Dioxide (22-32) mmol/L BUN (9-20) mg/dL Creatinine (0.66-1.25) mg/dL Estimated GFR (>60) mL/min BUN/Creatinine Ratio (6-22) Glucose (80-110) mg/dL Calcium (8.4-10.2) mg/dL Total Bilirubin (0.2-1.3) mg/dL AST (17-59) IU/L ALT (<50) IU/L Alkaline Phosphatase (38-126) U/L Total Creatine Kinase (55-170) U/L CK-MB (CK-2) CK-MB (CK-2) Rel Index Troponin I (0.01-0.034) ng/mL Total Protein (6.3-8.2) g/dL Albumin (3.5-5.0) g/dL Globulin (1.7-4.1) g/dL Albumin/Globulin Ratio (1.0-2.8) Urine Color Urine Appearance Urine pH (4.5-8.0) Ur Specific [place] (1.000-1.035) Urine Protein (Negative) Urine Glucose (UA) (Negative) g/dL Urine Ketones (NEGATIVE) Urine Occult Blood (Negative) Urine Nitrate (Negative) Urine Bilirubin (NEGATIVE) Urine Urobilinogen (0.2) E.U./dL Ur Leukocyte Esterase (NEGATIVE) Urine RBC (0-5/HPF) Urine WBC (0-5/HPF) Ur Squamous Epith Cells (0-5/HPF) Urine Bacteria (None) Ur Culture Indicated? Ur Random Sodium (30-90) mmol/L U Opiates 300ng/mL cut Negative (Negative) Ur Oxycodone Screen Negative (Negative) Urine Methadone Screen Negative (Negative) Ur Barbiturates Screen Negative (Negative) U Tricyclic Antidepress Negative (Negative) Ur Phencyclidine Scrn Negative (Negative) Ur Amphetamines Screen Negative (Negative) U Methamphetamines Scrn Negative (Negative) Ur MDMA Scrn (Ecstasy) Negative (Negative) U Benzodiazepines Scrn Negative (Negative) Urine Cocaine Screen Negative (Negative) U Marijuana (THC) Screen Negative (Negative) SARS-CoV-2 (PCR) (Negative) Imaging Data CT scan - head: Radiologist's Impression: Sage Llanes 70 M [address] [id number] Scan ReportSigned Patient: Sage Llanes [facility]#: [id number]: 8Acct:[id number]/Sex: 70 / MDate of Service: 02/13/21Loc: EDAccession Number: [id number] Procedure: CT Stroke Ordering Provider: Kamille Palacios D.O. PROCEDURE: CT STROKE INDICATIONS: confused, non TPA patient TECHNIQUE: Noncontrast 4.5 mm thick angled axial sections acquired from the foramen magnum to the vertex, with coronal reformats. For radiation dose reduction, the following was used: automated exposure control, adjustment of mA and/or kV according to patient size. COMPARISON: [facility], MR, MR HEAD/BRAIN WO CON, 04/28/2019, 18:53. [facility], CT, BRAIN W/O CONTRAST, 01/27/2015, 13:52. FINDINGS: Image quality: Excellent. CSF spaces: Basal cisterns are patent. No extra-axial fluid collections. The ventricles are symmetric in size and shape. Brain: No intracranial bleeds or masses. There is cerebral volume loss for age, with resultant ventricular and sulcal prominence. There are periventricular and deep white matter chronic small vessel ischemic changes. There is intracranial internal carotid artery atherosclerosis. Skull and face: Calvarium and visualized facial bones appear intact, without suspicious lesions. Sinuses: Visualized sinuses and mastoids are clear. Mild leftward nasal septal deviation is incidentally noted. IMPRESSION: No acute intracranial process is seen. No acute intracranial hemorrhage is seen. No mass effect is seen. No hydrocephalus. If there is strong clinical suspicion for an acute stroke, please consider a brain MRI for further evaluation, as it is more sensitive (assuming that there is no contraindication to MRI). This study fulfills neurological imaging criteria for inclusion or exclusion of acute stroke therapies based on available published neurological guidelines. Dictated by: Antonio Celis M.D. on 02/13/2021 at 13:42 Approved by: Antonio Celis M.D. on 02/13/2021 at 13:45 Chest x-ray: Radiologist's Impression: Sage Llanes 70 M [address] [id number] ReportSigned Patient: Sage Llanes#: [id number]: 8Acct:[id number]/Sex: 70 / MDate of Service: 02/13/21Loc: EDAccession Number: [id number] Procedure: XR chest 1V Ordering Provider: Kamille Palacios D.O. PROCEDURE: XR CHEST 1V INDICATIONS: Possible stroke TECHNIQUE: One view of the chest was acquired. COMPARISON: [facility], , XR CHEST 2V, 03/16/2019, 11:35. FINDINGS: Surgical changes and devices: None. Lungs and pleura: Low lung volumes are noted. This causes a crowded appearance to the lung markings and limits evaluation. Generalized interstitial prominence can be seen. No pneumothorax is seen. Mild blunting of the costophrenic angles can be seen Mediastinum: Mediastinal contours appear normal. Heart size is mildly enlarged. Bones and chest wall: No suspicious bony lesions. Age-appropriate bony degenerative changes are seen. Overlying soft tissues appear unremarkable. IMPRESSION: Interstitial prominence is seen throughout. The interstitial prominence is nonspecific, yet may be related to pulmonary edema. Mild blunting of the costophrenic angles is seen, which is attributed to small pleural effusions. Differential diagnosis includes atelectasis, however. Mild cardiomegaly. Dictated by: Antonio Celis M.D. on 02/13/2021 at 13:25 Approved by: Antonio Ceils M.D. on 02/13/2021 at 13:26 Discharge Plan Departure Patient Disposition: Admitted As Inpatient Clinical Impression: Hyponatremia, Altered mental status Admit Date/Time: 02/13/21 16:51 Admit Provider: Hang Flores
[2021-02-13 15:00] LABS: Sodium 118 mmol/L (137-145)
[2021-02-13 15:03] LABS: Troponin I 0.014 ng/mL (0.01-0.034)
[2021-02-13] MEDS: SODIUM CHLORIDE 0.9% 1,000 ML 1000 ML IV (15:11)
[2021-02-13 15:53] LABS: COVID19 - ADMIT (NP swab/PCR) Negative (Negative)
[2021-02-13 16:29] LABS: WBC Urine None Seen (0-5/HPF)
[2021-02-13 16:30] LABS: Appearance Urine UA CLEAR; Bilirubin Urine UA NEGATIVE (NEGATIVE); Color Urine UA YELLOW; Glucose Urine UA 1+ g/dL (Negative); Ketones Urine UA NEGATIVE (NEGATIVE); Leukocyte Esterase Urine UA NEGATIVE (NEGATIVE); Nitrite Urine UA NEGATIVE (Negative); Occult Blood Urine UA NEGATIVE (Negative); Protein Urine UA 1+ (Negative); pH Urine UA 7.5 (4.5-8.0)
[2021-02-13 16:35] LABS: Ur Creatinine Normal (Normal); Ur Specific Gravity Normal (Normal); Urine Tetrahydrocannabinol Negative (Negative); Urine pH Normal (Normal)
[2021-02-13 16:36] LABS: UR Morphine/Opiate cutoff 300 Negative (Negative); Urine Amphetamines Negative (Negative); Urine Barbiturates Negative (Negative); Urine Benzodiazepines Negative (Negative); Urine Cocaine Negative (Negative); Urine MDMA Negative (Negative); Urine Methadone Negative (Negative); Urine Methamphetamines Negative (Negative); Urine Oxycodone Negative (Negative); Urine Phencyclidine Negative (Negative); Urine Tricyclic Antidepressant Negative (Negative)
[2021-02-13 16:41] LABS: RBC Urine 0-1/HPF (0-5/HPF); Squamous Epithelial Cell Urine 0-1 /HPF (0-5/HPF)
[2021-02-13 16:42] LABS: Bacteria Urine Occasional (0-1); Culture Indicated Urine Cult Not Indicated
[2021-02-13] MEDS: SODIUM CHLORIDE 3 % 100 ML 600 ML IV (16:52)
[2021-02-13 16:53] LABS: Sodium Urine Random 118 mmol/L (30-90)
--- NOTE | 2021-02-13 18:40 | P.HP_ITS ---
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 Patient's , who was at bedside, states that the patient has been more confused over the past 2 days but has had difficulty walking as well over the past 2 weeks. She has not noticed any focal deficits and the patient is quite strong. She denies any slurred speech or facial droop. Patient denies any headaches, nausea, vomiting. His diarrhea is at baseline but he had been having bloody diarrhea previously and was on mesalamine and budesonide for treatment of Crohn's. Patient was due to follow-up with a powerhouse mechanic helper for a left lung mass that was seen on a CT scan back in December of this year. Per review of that CT scan that showed a left lower lobe 3 cm mass with possible metastatic lymph nodes as well as a cirrhotic appearing liver. His also reports a recent previous cardiac workup which included an ultrasound and stress test which was unremarkable. That was done for a workup of exertional dyspnea that was attributed to his new left lower lung mass. In the emergency room, the patient was afebrile, mildly hypertensive, but the remainder of his vital signs were unremarkable. Laboratory evaluation showed an unremarkable CBC, normal coagulation studies, chemistries revealed a sodium of 118, chloride of 86, creatinine 0.43, glucose of 156. AST and ALT were mildly elevated at 96 and 83 respectively. Troponin was within normal limits at 0.014. Urinalysis showed 0-1 rbc's, no white blood cells, +1 protein, and specific gravity of 1.020. Random urine sodium taken in the emergency room before any intervention showed a value of 118. Urine osmolality is a send out test is currently pending. Urine tox screen was negative. COVID-[address] of his head was unremarkable. Patient was admitted to Medicine for further management of symptomatic hyponatremia. Patient History Medical History Carotid bruit (08/06/11) Congestion of both ears Diaphragmatic hernia (08/06/11) Diverticulosis (08/06/11) Insomnia, persistent Muscle strain of left lower leg Obstructive sleep apnea of adult (~08/06/11) Snoring Surgical History History of angioplasty History of angioplasty Status post arthroscopy Family & Social History Family History Brother Heart disease High cholesterol Brother Age: 76 High cholesterol Father Heart disease Diabetes mellitus High cholesterol Mother Diabetes mellitus Heart disease High cholesterol Sister Age: 67 High cholesterol Social History: household members spouse Safety & Behavioral: Feels Safe in Current Yes Environment Been Physically Hurt or No Threatened By a Person Tobacco & Substance use: Smoking Status Former smoker alcohol intake current alcohol intake frequency holiday/special occasion Substance Use Type does not use Meds Home Medications and Allergies Home Medications Medication Instructions Recorded Confirmed Type multivitamin 1 tab PO DAILY 07/28/18 02/13/21 History aspirin 81 mg tablet,delayed 81 mg PO DAILY 04/22/19 02/13/21 History release atorvastatin 80 mg tablet 80 mg PO Q DAY #90 tab 03/22/20 02/13/21 Rx ezetimibe 10 mg tablet 10 mg PO DAILY #90 tab 03/22/20 02/13/21 Rx pantoprazole 20 mg tablet,delayed 20 mg PO QDAY #90 tab 03/22/20 02/13/21 Rx release metformin 500 mg tablet,extended 500 mg PO BID 30 Days #180 tab 01/13/21 02/13/21 Rx release 24 hr calcium carbonate 600 mg (1,500 1 cap PO DAILY cap 01/18/21 02/13/21 History mg)-vitamin D3 500 unit capsule diphenhydramine 25 2 tab PO BEDTIME PRN tab 01/18/21 02/13/21 History mg-acetaminophen 500 mg tablet vitamin B complex 1 tab PO DAILY 01/18/21 02/13/21 History budesonide 02/13/21 History mesalamine 02/13/21 History psyllium [Metamucil] 1 packet 02/13/21 History Allergies Allergy/AdvReac Type Severity Reaction Status Date / Time No Known Drug Allergies Allergy Verified 01/18/21 14:41 Review of Systems Review of Systems Narrative: All other systems reviewed with the patient and are negative unless otherwise stated. Exam Vital Signs (past 8 hours): - 02/13/21 14:38 02/13/21 14:39 02/13/21 14:45 Temperature Pulse Rate 73 71 69 Respiratory Rate 14 15 Blood Pressure 169/79 H Pulse Oximetry 93 93 91 02/13/21 15:00 02/13/21 15:15 02/13/21 15:30 Temperature Pulse Rate 67 70 Respiratory Rate 16 18 Blood Pressure 158/72 H 169/79 H Pulse Oximetry 91 91 02/13/21 15:45 02/13/21 16:00 02/13/21 16:15 Temperature Pulse Rate 77 67 68 Respiratory Rate 27 H 15 15 Blood Pressure 158/78 H Pulse Oximetry 92 92 91 02/13/21 16:30 02/13/21 16:45 02/13/21 17:22 Temperature 97 F L Pulse Rate 67 69 64 Respiratory Rate 16 21 18 Blood Pressure 171/77 H 143/69 H Pulse Oximetry 92 93 94 02/13/21 18:22 Temperature Pulse Rate Respiratory Rate Blood Pressure Pulse Oximetry 96 Oxygen Delivery Method Room Air Oxygen Flow Rate 0 Narrative Exam Narrative: GENERAL APPEARANCE: Well developed, well nourished, in no acute distress. SKIN: Inspection of the skin reveals no rashes, ulcerations or petechiae. HEENT: Normocephalic atraumatic, extraocular muscles are intact, oropharynx is clear and mucous membranes are moist, neck is supple without adenopathy NECK: Supple and symmetric. There was no thyroid enlargement, and no tenderness, or masses were felt. CHEST: Normal AP diameter and normal contour without any kyphoscoliosis. LUNGS: Auscultation of the lungs revealed no wheezes, rhonchi, or rales. CARDIOVASCULAR: There was a regular rate and rhythm without any murmurs, g allops, rubs. Peripheral pulses were 2+ and symmetric. ABDOMEN: Soft and nontender with normal bowel sounds. No ascites was noted. MUSCULOSKELETAL: There was no tenderness or effusions noted. Muscle strength and tone were normal. EXTREMITIES: No cyanosis, clubbing or edema. NEUROLOGIC: Alert and oriented to name and place. Confused. Gait was not assessed. Strength is +5/5 in the Upper Extremities and Lower Extremities Bilaterally. Sensation to touch was normal. Once able to follow the command heel to moore did not show any evidence of ataxia. Objective Labs Result Diagrams: 02/13/21 14:10 02/13/21 18:50 Labs: Laboratory Results - last 24 hr 02/13/21 02/13/21 02/13/21 14:10 14:10 14:10 WBC 8.7 RBC 4.66 Hgb 14.9 Hct 41.4 MCV 88.8 MCH 32.0 MCHC 36.1 H RDW 14.1 Plt Count 134 L Neut % (Auto) 76.5 H Lymph % (Auto) 14.2 L Winkler % (Auto) 7.9 Eos % (Auto) 0.3 L Baso % (Auto) 1.1 Neut # (Auto) 6700 Lymph # (Auto) 1200 Winkler # (Auto) 700 Eos # (Auto) 0 Baso # (Auto) 100 PT 13.7 H INR 1.2 APTT 30 Sodium 118 L* Potassium 3.8 Chloride 86 L Carbon Dioxide 22 BUN 10 Creatinine 0.43 L Estimated GFR > 60.0 BUN/Creatinine Ratio 23.3 H Glucose 156 H Calcium 9.2 Total Bilirubin 1.3 AST 96 H ALT 83 H Alkaline Phosphatase 120 Total Creatine Kinase 79 CK-MB (CK-2) TNP CK-MB (CK-2) Rel Index TNP Troponin I 0.014 Total Protein 8.4 H Albumin 4.3 Globulin 4.1 Albumin/Globulin Ratio 1.0 Urine Color Urine Appearance Urine pH Ur Specific Sultan Urine Protein Urine Glucose (UA) Urine Ketones Urine Occult Blood Urine Nitrate Urine Bilirubin Urine Urobilinogen Ur Leukocyte Esterase Urine RBC Urine WBC Ur Squamous Epith Cells Urine Bacteria Ur Culture Indicated? Ur Random Sodium U Opiates 300ng/mL cut Ur Oxycodone Screen Urine Methadone Screen Ur Barbiturates Screen U Tricyclic Antidepress Ur Phencyclidine Scrn Ur Amphetamines Screen U Methamphetamines Scrn Ur MDMA Scrn (Ecstasy) U Benzodiazepines Scrn Urine Cocaine Screen U Marijuana (THC) Screen SARS-CoV-2 (PCR) 02/13/21 02/13/21 02/13/21 14:49 16:23 16:25 WBC RBC Hgb Hct MCV MCH MCHC RDW Plt Count Neut % (Auto) Lymph % (Auto) Winkler % (Auto) Eos % (Auto) Baso % (Auto) Neut # (Auto) Lymph # (Auto) Winkler # (Auto) Eos # (Auto) Baso # (Auto) PT INR APTT Sodium Potassium Chloride Carbon Dioxide BUN Creatinine Estimated GFR BUN/Creatinine Ratio Glucose Calcium Total Bilirubin AST ALT Alkaline Phosphatase Total Creatine Kinase CK-MB (CK-2) CK-MB (CK-2) Rel Index Troponin I Total Protein Albumin Globulin Albumin/Globulin Ratio Urine Color Yellow Urine Appearance Clear Urine pH 7.5 Ur Specific Sultan 1.020 Urine Protein 1+ H Urine Glucose (UA) 1+ H Urine Ketones Negative Urine Occult Blood Negative Urine Nitrate Negative Urine Bilirubin Negative Urine Urobilinogen 4.0 H Ur Leukocyte Esterase Negative Urine RBC 0-1/hpf Urine WBC None seen Ur Squamous Epith Cells 0-1 /hpf Urine Bacteria Occasional (0-1) Ur Culture Indicated? Cult not indicated Ur Random Sodium 118 H U Opiates 300ng/mL cut Ur Oxycodone Screen Urine Methadone Screen Ur Barbiturates Screen U Tricyclic Antidepress Ur Phencyclidine Scrn Ur Amphetamines Screen U Methamphetamines Scrn Ur MDMA Scrn (Ecstasy) U Benzodiazepines Scrn Urine Cocaine Screen U Marijuana (THC) Screen SARS-CoV-2 (PCR) Negative 02/13/21 16:25 WBC RBC Hgb Hct MCV MCH MCHC RDW Plt Count Neut % (Auto) Lymph % (Auto) Winkler % (Auto) Eos % (Auto) Baso % (Auto) Neut # (Auto) Lymph # (Auto) Winkler # (Auto) Eos # (Auto) Baso # (Auto) PT INR APTT Sodium Potassium Chloride Carbon Dioxide BUN Creatinine Estimated GFR BUN/Creatinine Ratio Glucose Calcium Total Bilirubin AST ALT Alkaline Phosphatase Total Creatine Kinase CK-MB (CK-2) CK-MB (CK-2) Rel Index Troponin I Total Protein Albumin Globulin Albumin/Globulin Ratio Urine Color Urine Appearance Urine pH Ur Specific Sultan Urine Protein Urine Glucose (UA) Urine Ketones Urine Occult Blood Urine Nitrate Urine Bilirubin Urine Urobilinogen Ur Leukocyte Esterase Urine RBC Urine WBC Ur Squamous Epith Cells Urine Bacteria Ur Culture Indicated? 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 Patient was admitted to Medicine for further management of symptomatic hyponatremia. 1. Hyponatremia, possibly acute, present on admission, symptomatic -serum sodium of 118 on admission, improved to 120 after 3% NS bolus, 100 cc. His urine sodium is also elevated at 118. Urine osm pending. Unclear chronicity as acute confusion over a few days but also gait disturbances over a few weeks. CT head unremarkable in the ER. 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 Appears euvolemic at this time. -have started a fluid restriction diet, will give another 100 cc of 3% NS and continue to monitor sodium closely. Goal sodium at 24 hours will be 126, but no greater than 130. If greater than 130 start D5W infusion to lower to an appropriate amount. - PT /OT when improved. 2. Metabolic encephalopathy, acute, present on admission - suspect secondary to hyponatremia, other possibilities include steroid ind uced or CVA. Consider MRI if there is no improvement after correction of sodium. 3. Crohn's disease, chronic -continue home medications of mesalamine and budesonide when dosing known. both non-formulary will have to have family bring in. 4. Emphysema, chronic -patient does not appear to be on any inhalers. No respiratory symptoms at this time, continue to monitor. Emphysema was seen on his recent CT that revealed his left lower lobe mass. 5. Type 2 diabetes - start sliding scale patient reports good control on low dose metformin. - hold metformin, check A1c. 6. History of CAD - continue home asa and statin. 7. Left lower lobe lung mass - outpatient workup, planned for biopsy at [facility] on 02/14 which will have to be delayed. 8. Transaminitis - ? cirrhotic appearing liver on CT chest at [facility], will check abdominal ultrasound and hepatitis serologies. Code: Full as discussed with the patient, surrogate decision maker is the patient's Dispo: Admitted under inpatient status as his stay is expected to exceed 2 midnights DVT: Lovenox daily
[2021-02-13 19:08] LABS: BUN Creatinine Ratio 23.7 (6-22); Blood Urea Nitrogen 9 mg/dL (9-20); Calcium 8.9 mg/dL (8.4-10.2); Carbon Dioxide 22 mmol/L (22-32); Chloride 89 mmol/L (98-107); Estimated Glomerular Filt Rate > 60.0 mL/min (>60); Glucose 146 mg/dL (80-110); HEMOLYSIS < 15 (0-50); Potassium 3.7 mmol/L (3.4-5.1); Sodium 120 mmol/L (137-145)
[2021-02-13] MEDS: SODIUM CHLORIDE 3 % 500 ML 20 ML IV (20:02)
[2021-02-13 22:35] LABS: BUN Creatinine Ratio 24.4 (6-22); Blood Urea Nitrogen 11 mg/dL (9-20); Calcium 8.7 mg/dL (8.4-10.2); Carbon Dioxide 23 mmol/L (22-32); Chloride 90 mmol/L (98-107); Estimated Glomerular Filt Rate > 60.0 mL/min (>60); Glucose 171 mg/dL (80-110); HEMOLYSIS < 15 (0-50); Potassium 3.6 mmol/L (3.4-5.1); Sodium 120 mmol/L (137-145)
[2021-02-13] MEDS: ACETAMINOPHEN 325 MG TABLET 650 MG PO (23:04)
[2021-02-14] VITALS (12 sets, daily range): BP systolic 132–151; BP diastolic 70–79; PULSE 63–73; RESP 16–20; TEMP 36.2–36.6; O2SAT 93–99
[2021-02-14] MEDS: ACETAMINOPHEN 325 MG TABLET 650 MG PO (05:06)
[2021-02-14 05:58] LABS: Add Manual Diff / Slide Review NO; Basophils Absolute Auto 0 /uL (0-100); Basophils Percent Auto 0.6 % (0-2); Eosinophils Absolute Auto 0 /uL (0-450); Eosinophils Percent Auto 0.4 % (2-4); Hematocrit 37.3 % (41-53); Hemoglobin 13.4 g/dL (13.5-17.5); Lymphocytes Absolute Auto 1200 /uL (1100-4500); Mean Corpuscular HGB Conc 35.9 % (30-36); Mean Corpuscular Hemoglobin 31.8 PG (26-34); Mean Corpuscular Volume 88.7 fL (80-100); Monocytes Absolute Auto 400 /uL (0-900); Neutrophils Absolute Auto 4500 /uL (1500-7000); Platelet Count 100 X10^3/uL (150-400); Red Blood Cell Count 4.21 X10^6/uL (4.5-5.9); Red Cell Distribution Width 13.8 % (11.6-14.8); White Blood Cell Count 6.1 X10^3/uL (4.5-11.0)
[2021-02-14 06:10] LABS: BUN Creatinine Ratio 26.8 (6-22); Blood Urea Nitrogen 11 mg/dL (9-20); Calcium 8.8 mg/dL (8.4-10.2); Carbon Dioxide 22 mmol/L (22-32); Chloride 90 mmol/L (98-107); Estimated Glomerular Filt Rate > 60.0 mL/min (>60); Glucose 141 mg/dL (80-110); HEMOLYSIS < 15 (0-50); Potassium 3.8 mmol/L (3.4-5.1)
[2021-02-14 06:11] LABS: Alanine Aminotransferase 79 IU/L (<50); Albumin 3.7 g/dL (3.5-5.0); Alkaline Phosphatase 101 U/L (38-126); Aspartate Aminotransferase 79 IU/L (17-59); BUN Creatinine Ratio 26.8 (6-22); Bilirubin Total 1.1 mg/dL (0.2-1.3); Bilirubin Unconjugated 1.1 mg/dL (0.0-1.1); Blood Urea Nitrogen 11 mg/dL (9-20); Calcium 8.8 mg/dL (8.4-10.2); Carbon Dioxide 22 mmol/L (22-32); Chloride 90 mmol/L (98-107); Estimated Glomerular Filt Rate > 60.0 mL/min (>60); Globulin 3.6 g/dL (1.7-4.1); Glucose 142 mg/dL (80-110); HEMOLYSIS < 15 (0-50); Magnesium 1.9 mg/dL (1.6-2.3); Potassium 3.9 mmol/L (3.4-5.1); Sodium 120 mmol/L (137-145); Total Protein 7.3 g/dL (6.3-8.2)
[2021-02-14 06:38] LABS: Sodium 119 mmol/L (137-145)
[2021-02-14 06:51] LABS: TSH w/ Reflex to FT4 0.24 uIU/mL (0.47-4.68)
[2021-02-14 06:52] LABS: Hemoglobin A1C% w Est Avg Glu 5.6 % (4.0-6.0)
[2021-02-14 07:16] LABS: Free T4, Direct Thyroxine 1.17 ng/dL (0.78-2.19)
[2021-02-14] MEDS: ATORVASTATIN 20 MG TABLET 80 MG PO (08:28)
[2021-02-14] MEDS: EZETIMIBE 10 MG TABLET PO (08:28)
[2021-02-14] MEDS: ASPIRIN EC 81 MG TABLET PO (08:28)
[2021-02-14] MEDS: ENOXAPARIN 40 MG/0.4 ML SYRINGE SUBCUT (08:28)
[2021-02-14 13:57] LABS: Sodium 118 mmol/L (137-145)
[2021-02-14 14:36] LABS: Osmolality Urine 695 mOsmol/kg (.)
[2021-02-14] MEDS: SODIUM CHLORIDE 3 % 500 ML 40 ML IV (14:57)
--- NOTE | 2021-02-14 15:47 | CM.DANOTE ---
DCP ASSESSMENT: Patient is a 70 year-old male admitted to the hospital for management of symptomatic? hyponatremia. PCP is Antonio Carcamo. Primary payer is Medicare, [employer]. [employer] Student met with patient at bedside he was alert and oriented. Educated patient on role of social work and discharge planning. Patient reports being independent with ADL?s, he recently started using a cane for ambulation. He reported he drives. Patient does live with and they are the primary caregivers for their five year-old granddaughter. Patient?s will provide transportation at time of D/C. Inquired with provider on whether or not therapy evaluation needed? Provider reports that he hopes patient?s confusion will clear once hyponatremia resolved. PLAN: Anticipate D/C home when medically stable. CM Team to continue to follow.? At this time no therapy ordered. ADRIANNE Lopez MSW Student Discharge Planning/Care Management CM Discharge Assessment Start: 02/14/21 09:11 Freq: Status: Active Protocol: Document 02/14/21 09:11 AL (Rec: 02/14/21 09:14 AL [id number]) Discharge Planning Assessment Assigned Grease And Tallow Pumper ADRIANNE Lucas Contact Information Ludy Llanes Advance Directives? Yes Advance Directives on File No History Provided By Patient,Medical Record Has Patient been admitted in last 30 No days? Prior Living Arrangements House Household Members spouse,other Comment caregiver for 5 year-old granddaughter Type of transporation used prior to Drives own vehicle admit Independent with ADL's Yes Is patient alert and oriented? Yes Needs Assistance With Home Chores / Shopping Comment Hires out yeard work Caregiver for Another Yes: five year-old granddaughter DME Already Rented / Owned Cane Barriers to Discharge No Transportation Arrangement Ludy will provide transportation Whiteboard Updated in Patient Room with Yes name and ext. # of Grease And Tallow Pumper Review Status In Process Document 02/14/21 10:40 AL (Rec: 02/14/21 10:40 AL [id number]) Discharge Planning Assessment Assigned Grease And Tallow PumperADRIANNE Edwards Student Contact Information Ludy Llanes Advance Directives? Yes Advance Directives on File No History Provided By Patient,Medical Record Has Patient been admitted in last 30 No days? Prior Living Arrangements House Household Members spouse,other Comment caregiver for 5 year-old granddaughter Type of transporation used prior to Drives own vehicle admit Independent with ADL's Yes Is patient alert and oriented? Yes Needs Assistance With Home Chores / Shopping Comment Hires out yeard work Caregiver for Another Yes: five year-old granddaughter DME Already Rented / Owned Cane Barriers to Discharge No Transportation Arrangement Ludy will provide transportation Whiteboard Updated in Patient Room with Yes name and ext. # of Grease And Tallow Pumper Review Status In Process
--- NOTE | 2021-02-14 15:56 | P.PN_ITS ---
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 Onset was probably 2 weeks prior but much worse over last couple of days. 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 Patient and spouse agree he is much less confused today although serum sodium remains 118. Exam Vital Signs (past 8 hours): - 02/14/21 08:00 02/14/21 08:14 02/14/21 11:50 Temperature 98 F Pulse Rate 70 Respiratory Rate 18 Blood Pressure 149/77 H Pulse Oximetry 96 98 99 02/14/21 12:00 02/14/21 13:04 02/14/21 15:31 Temperature 97.6 F 97.6 F Pulse Rate 70 73 Respiratory Rate 18 18 Blood Pressure 142/70 H 132/72 Pulse Oximetry 96 99 95 02/14/21 15:48 Temperature Pulse Rate Respiratory Rate Blood Pressure Pulse Oximetry 98 Oxygen Delivery Method Room Air Oxygen Flow Rate 0 Narrative Exam Narrative: General: Alert and cooperative male Lungs: Breathing nonlabored Neurological: Appears well oriented, speech fluent and goal directed, affect normal Objective Labs Result Diagrams: 02/14/21 05:25 02/14/21 12:30 Labs: Laboratory Results - last 24 hr 02/13/21 02/13/21 02/13/21 16:23 16:25 16:25 WBC RBC Hgb Hct MCV MCH MCHC RDW Plt Count Neut % (Auto) Lymph % (Auto) [place] % (Auto) Eos % (Auto) Baso % (Auto) Neut # (Auto) Lymph # (Auto) [place] # (Auto) Eos # (Auto) Baso # (Auto) Sodium Potassium Chloride Carbon Dioxide BUN Creatinine Estimated GFR BUN/Creatinine Ratio Glucose Hemoglobin A1c Calcium Magnesium Total Bilirubin Conjugated Bilirubin Unconjugated Bilirubin AST ALT Alkaline Phosphatase Total Protein Albumin Globulin Albumin/Globulin Ratio TSH Free T4 Urine Color Yellow Urine Appearance Clear Urine pH 7.5 Ur Specific [employer] 1.020 Urine Protein 1+ H Urine Glucose (UA) 1+ H Urine Ketones Negative Urine Occult Blood Negative Urine Nitrate Negative Urine Bilirubin Negative Urine Urobilinogen 4.0 H Ur Leukocyte Esterase Negative Urine RBC 0-1/hpf Urine WBC None seen Ur Squamous Epith Cells 0-1 /hpf Urine Bacteria Occasional (0-1) Ur Culture Indicated? Cult not indicated Urine Osmolality Ur Random Sodium 118 H U Opiates 300ng/mL cut Negative Ur Oxycodone Screen Negative Urine Methadone Screen Negative Ur Barbiturates Screen Negative U Tricyclic Antidepress Negative Ur Phencyclidine Scrn Negative Ur Amphetamines Screen Negative U Methamphetamines Scrn Negative Ur MDMA Scrn (Ecstasy) Negative U Benzodiazepines Scrn Negative Urine Cocaine Screen Negative U Marijuana (THC) Screen Negative 02/13/21 02/13/21 02/13/21 16:25 18:50 22:15 WBC RBC Hgb Hct MCV MCH MCHC RDW Plt Count Neut % (Auto) Lymph % (Auto) [place] % (Auto) Eos % (Auto) Baso % (Auto) Neut # (Auto) Lymph # (Auto) [place] # (Auto) Eos # (Auto) Baso # (Auto) Sodium 120 L 120 L Potassium 3.7 3.6 Chloride 89 L 90 L Carbon Dioxide 22 23 BUN 9 11 Creatinine 0.38 L 0.45 L Estimated GFR > 60.0 > 60.0 BUN/Creatinine Ratio 23.7 H 24.4 H Glucose 146 H 171 H Hemoglobin A1c Calcium 8.9 8.7 Magnesium Total Bilirubin Conjugated Bilirubin Unconjugated Bilirubin AST ALT Alkaline Phosphatase Total Protein Albumin Globulin Albumin/Globulin Ratio TSH Free T4 Urine Color Urine Appearance Urine pH Ur Specific [employer] Urine Protein Urine Glucose (UA) Urine Ketones Urine Occult Blood Urine Nitrate Urine Bilirubin Urine Urobilinogen Ur Leukocyte Esterase Urine RBC Urine WBC Ur Squamous Epith Cells Urine Bacteria Ur Culture Indicated? Urine Osmolality 695 Ur Random Sodium U Opiates 300ng/mL cut Ur Oxycodone Screen Urine Methadone Screen Ur Barbiturates Screen U Tricyclic Antidepress Ur Phencyclidine Scrn Ur Amphetamines Screen U Methamphetamines Scrn Ur MDMA Scrn (Ecstasy) U Benzodiazepines Scrn Urine Cocaine Screen U Marijuana (THC) Screen 02/14/21 02/14/21 02/14/21 05:25 05:25 05:25 WBC 6.1 RBC 4.21 L Hgb 13.4 L Hct 37.3 L MCV 88.7 MCH 31.8 MCHC 35.9 RDW 13.8 Plt Count 100 L Neut % (Auto) 73.0 Lymph % (Auto) 19.0 L [place] % (Auto) 7.0 Eos % (Auto) 0.4 L Baso % (Auto) 0.6 Neut # (Auto) 4500 Lymph # (Auto) 1200 [place] # (Auto) 400 Eos # (Auto) 0 Baso # (Auto) 0 Sodium 119 L* 120 L Potassium 3.8 3.9 Chloride 90 L 90 L Carbon Dioxide 22 22 BUN 11 11 Creatinine 0.41 L 0.41 L Estimated GFR > 60.0 > 60.0 BUN/Creatinine Ratio 26.8 H 26.8 H Glucose 141 H 142 H Hemoglobin A1c Calcium 8.8 8.8 Magnesium 1.9 Total Bilirubin 1.1 Conjugated Bilirubin 0.0 Unconjugated Bilirubin 1.1 AST 79 H ALT 79 H Alkaline Phosphatase 101 Total Protein 7.3 Albumin 3.7 Globulin 3.6 Albumin/Globulin Ratio 1.0 TSH Free T4 Urine Color Urine Appearance Urine pH Ur Specific [employer] Urine Protein Urine Glucose (UA) Urine Ketones Urine Occult Blood Urine Nitrate Urine Bilirubin Urine Urobilinogen Ur Leukocyte Esterase Urine RBC Urine WBC Ur Squamous Epith Cells Urine Bacteria Ur Culture Indicated? Urine Osmolality Ur Random Sodium U Opiates 300ng/mL cut Ur Oxycodone Screen Urine Methadone Screen Ur Barbiturates Screen U Tricyclic Antidepress Ur Phencyclidine Scrn Ur Amphetamines Screen U Methamphetamines Scrn Ur MDMA Scrn (Ecstasy) U Benzodiazepines Scrn Urine Cocaine Screen U Marijuana (THC) Screen 02/14/21 02/14/21 02/14/21 05:25 05:25 12:30 WBC RBC Hgb Hct MCV MCH MCHC RDW Plt Count Neut % (Auto) Lymph % (Auto) [place] % (Auto) Eos % (Auto) Baso % (Auto) Neut # (Auto) Lymph # (Auto) [place] # (Auto) Eos # (Auto) Baso # (Auto) Sodium 118 L* Potassium Chloride Carbon Dioxide BUN Creatinine Estimated GFR BUN/Creatinine Ratio Glucose Hemoglobin A1c 5.6 Calcium Magnesium Total Bilirubin Conjugated Bilirubin Unconjugated Bilirubin AST ALT Alkaline Phosphatase Total Protein Albumin Globulin Albumin/Globulin Ratio TSH 0.24 L Free T4 1.17 Urine Color Urine Appearance Urine pH Ur Specific [employer] Urine Protein Urine Glucose (UA) Urine Ketones Urine Occult Blood Urine Nitrate Urine Bilirubin Urine Urobilinogen Ur Leukocyte Esterase Urine RBC Urine WBC Ur Squamous Epith Cells Urine Bacteria Ur Culture Indicated? Urine Osmolality Ur Random Sodium U Opiates 300ng/mL cut Ur Oxycodone Screen Urine Methadone Screen Ur Barbiturates Screen U Tricyclic Antidepress Ur Phencyclidine Scrn Ur Amphetamines Screen U Methamphetamines Scrn Ur MDMA Scrn (Ecstasy) U Benzodiazepines Scrn Urine Cocaine Screen U Marijuana (THC) Screen [facility] Medical History Carotid bruit (08/06/11) Congestion of both ears Diaphragmatic hernia (08/06/11) Diverticulosis (08/06/11) Insomnia, persistent Muscle strain of left lower leg Obstructive sleep apnea of adult (~08/06/11) Snoring Surgical History History of angioplasty History of angioplasty Status post arthroscopy Family History Brother Heart disease High cholesterol Brother Age: 76 High cholesterol Father Heart disease Diabetes mellitus High cholesterol Mother Diabetes mellitus Heart disease High cholesterol Sister Age: 67 High cholesterol Social History household members: spouse and other Smoking Status: Former smoker Tobacco: How many years used: 44 alcohol intake: current substance use type: former substance user and marijuana Assessment & Plan Assessment & Plan narrative: 1. Acute or subacute severe symptomatic hypon atremia, present on admission, active -likely secondary to SIADH due to presumed lung malignancy -serum sodium 118 on admission, received 3% NS bolus 100 cc in ED with repeat sodium 120, however sodium this a.m. remains 118 -elevated urine sodium, urine osmolarity pending -this afternoon patient started on 3% NS 30 cc/hour, check serum sodium at 6:00 p.m., 8:00 p.m., then q.4 hours -treatment goal is to raise serum sodium by 6-8 mEq, to 124-126, in next 24 hours, however if serum sodium rises greater than 130 then start D5W infusion to lower to appropriate amount -fluid restrict to 800 cc per day -encourage liberal salt intake with meals and salty snacks -patient will need to stay on fluid restricted high salt diet and possibly need to take a loop diuretic as well 2. Type 2 diabetes -stable, continue metformin 3. Crohn's disease -currently stable, this was recently diagnosed when patient developed chronic rectal bleed -continue mesalamine and budesonide 4. History of CAD -stable, continue aspirin and statin 5. Left lower lobe lung mass -patient scheduled 02/[address]-guided biopsy at [facility] but will need to reschedule 6. Fatty liver disease/cirrhosis appearance on outside chest CT -patient states this has been previously worked up and consider due to fatty liver disease
[2021-02-14 18:29] LABS: Carbon Dioxide 22 mmol/L (22-32); Chloride 90 mmol/L (98-107); HEMOLYSIS < 15 (0-50); Potassium 3.8 mmol/L (3.4-5.1); Sodium 121 mmol/L (137-145)
[2021-02-14 19:22] LABS: Hepatitis B Surface Antigen NEGATIVE s/c (NEGATIVE)
[2021-02-14 19:51] LABS: Hep C Virus Ab w/Reflex Quant NEGATIVE s/c (NEGATIVE)
[2021-02-14 20:39] LABS: Carbon Dioxide 22 mmol/L (22-32); Chloride 91 mmol/L (98-107); HEMOLYSIS < 15 (0-50); Potassium 3.8 mmol/L (3.4-5.1); Sodium 122 mmol/L (137-145)
[2021-02-14] MEDS: METFORMIN XR 500 MG TABLET PO (20:51)
[2021-02-14] MEDS: MESALAMINE 800 MG TABLET.DR 2400 MG PO (20:52)
[2021-02-15] VITALS (10 sets, daily range): BP systolic 111–148; BP diastolic 68–88; PULSE 61–77; RESP 13–24; TEMP 36–37.1; O2SAT 93–98
[2021-02-15 00:33] LABS: Carbon Dioxide 23 mmol/L (22-32); Chloride 91 mmol/L (98-107); HEMOLYSIS < 15 (0-50); Potassium 3.8 mmol/L (3.4-5.1); Sodium 123 mmol/L (137-145)
[2021-02-15 04:39] LABS: Carbon Dioxide 22 mmol/L (22-32); Chloride 93 mmol/L (98-107); HEMOLYSIS < 15 (0-50); Potassium 3.6 mmol/L (3.4-5.1); Sodium 123 mmol/L (137-145)
[2021-02-15] MEDS: PANTOPRAZOLE DR 20 MG TABLET PO (06:18)
--- NOTE | 2021-02-15 07:00 | DI.US.S_ITS ---
PROCEDURE: US ABDOMEN LIMITED INDICATIONS: ELEVATED LIVER ENZYMES TECHNIQUE: Real-time scanning was performed of the right upper quadrant, with image documentation. COMPARISON: [facility], [place], PET NECK TO MID THIGH, 01/31/2021, 9:23. [facility], US ABDOMEN LIMITED, 12/16/2020, 17:12. FINDINGS: Liver: Upper limits of normal in size. Increased in echogenicity. The verse surface appears somewhat nodular. Gallbladder: Nondilated. No stones or sludge. Normal gallbladder wall thickness. No pericholecystic fluid. Negative sonographic Santamaria's sign. Biliary ducts: Intrahepatic bile ducts are non-dilated. Extrahepatic bile duct caliber measures 6 mm. Normal is 6-7 mm or less in diameter, or 10 mm or less post-cholecystectomy. Pancreas: Visualized portions of the pancreas are sonographically normal. IMPRESSION: 1. Liver surface appears somewhat nodular. Increased hepatic echogenicity most which could be due to hepatocellular disease or hepatic steatosis. 2. No acute cholecystitis. No gallstones. Dictated by: Seb Jose M.D. on 02/15/2021 at 9:06 Approved by: Seb Jose M.D. on 02/15/2021 at 9:10
[2021-02-15 08:42] LABS: Hepatitis B Core Antibody Negative (Negative); Hepatitis B Surf Ab Qualitativ Non Reactive (.)
[2021-02-15 09:17] LABS: HEMOLYSIS < 15 (0-50); Potassium 3.6 mmol/L (3.4-5.1)
[2021-02-15 09:18] LABS: Carbon Dioxide 24 mmol/L (22-32); Chloride 92 mmol/L (98-107); Sodium 123 mmol/L (137-145)
--- NOTE | 2021-02-15 09:35 | PC.NURSE ---
BS check this morning at 8:26 am was 112
[2021-02-15] MEDS: ASPIRIN EC 81 MG TABLET PO (09:39)
[2021-02-15] MEDS: EZETIMIBE 10 MG TABLET PO (09:39)
[2021-02-15] MEDS: METFORMIN XR 500 MG TABLET PO ×2 (09:39→21:20)
[2021-02-15] MEDS: ATORVASTATIN 20 MG TABLET 80 MG PO (09:39)
[2021-02-15] MEDS: ENOXAPARIN 40 MG/0.4 ML SYRINGE SUBCUT (09:39)
[2021-02-15] MEDS: MESALAMINE 800 MG TABLET.DR 2400 MG PO ×2 (09:40→21:20)
[2021-02-15] MEDS: BUDESONIDE 3 MG CAP 6 MG PO ×2 (10:27→21:20)
[2021-02-15 12:22] LABS: Sodium 123 mmol/L (137-145)
[2021-02-15] MEDS: SODIUM CHLORIDE 3 % 500 ML 30 ML IV (13:11)
[2021-02-15 17:38] LABS: Carbon Dioxide 21 mmol/L (22-32); Chloride 94 mmol/L (98-107); Potassium 3.9 mmol/L (3.4-5.1); Sodium 124 mmol/L (137-145)
[2021-02-15 17:47] LABS: HEMOLYSIS 63 (0-50)
--- NOTE | 2021-02-15 18:14 | P.PN_ITS ---
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 Patient has improvement in altered mental status although not quite back to normal. His serum sodium this morning is up to 123 on 3% NS at 20 cc/hour. His rate was increased to 30 cc/hour with repeat sodium of 123 at noon. His last sodium is 124 at 4:00 p.m. on 30 cc/hour of 3% NS so he seems to be going up appropriately. Exam Vital Signs (past 8 hours): - 02/15/21 12:00 02/15/21 16:08 02/15/21 17:26 Temperature 96.8 F L 97.4 F L Pulse Rate 69 75 Respiratory Rate 16 13 Blood Pressure 136/68 111/73 Pulse Oximetry 96 94 94 Oxygen Delivery Method Room Air Oxygen Flow Rate 0 Narrative Exam Narrative: General: Alert and cooperative male in no acute distress Neurological: Well oriented, affect slightly diminished, speech normal Objective Labs Result Diagrams: 02/14/21 05:25 02/15/21 16:48 Labs: Laboratory Results - last 24 hr 02/14/21 02/14/21 02/14/21 05:25 05:25 05:25 Sodium Potassium Chloride Carbon Dioxide Magnesium Hep Bs Antigen Negative Hep Bs Antibody Non reactive Hep B Core Total Ab Negative Hepatitis C Antibody Negative 02/14/21 02/14/21 02/15/21 18:10 20:09 00:13 Sodium 121 L 122 L 123 L Potassium 3.8 3.8 3.8 Chloride 90 L 91 L 91 L Carbon Dioxide 22 22 23 Magnesium Hep Bs Antigen Hep Bs Antibody Hep B Core Total Ab Hepatitis C Antibody 02/15/21 02/15/21 02/15/21 04:02 04:02 08:40 Sodium 123 L 123 L Potassium 3.6 3.6 Chloride 93 L 92 L Carbon Dioxide 22 24 Magnesium 2.0 Hep Bs Antigen Hep Bs Antibody Hep B Core Total Ab Hepatitis C Antibody 02/15/21 02/15/21 12:06 16:48 Sodium 123 L 124 L Potassium 3.9 Chloride 94 L Carbon Dioxide 21 L Magnesium Hep Bs Antigen Hep Bs Antibody Hep B Core Total Ab Hepatitis C Antibody [facility] Medical History Carotid bruit (08/06/11) Congestion of both ears Diaphragmatic hernia (08/06/11) Diverticulosis (08/06/11) Insomnia, persistent Muscle strain of left lower leg Obstructive sleep apnea of adult (~08/06/11) Snoring Surgical History History of angioplasty History of angioplasty Status post arthroscopy Family History Brother Heart disease High cholesterol Brother Age: 76 High cholesterol Father Heart disease Diabetes mellitus High cholesterol Mother Diabetes mellitus Heart disease High cholesterol Sister Age: 67 High cholesterol Social History household members: spouse and other Smoking Status: Former smoker Tobacco: How many years used: 44 alcohol intake: current substance use type: former substance user and marijuana Assessment & Plan Assessment & Plan narrative: 1. 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, urine sodium was 118, urine osmolarity 695 consistent with SIADH -serum sodium 118 on admission, has increased appropriately to 124 over a period of 24 hours on 3% NS -treatment goal is to raise serum sodium by 6-8 mEq over 24 hours -continue 3% NS at 30 cc/hour while checking serum sodium q.4 hours to avoid excessive increase in serum sodium -fluid restrict to 800 cc per day -encourage liberal salt intake with meals and salty snacks -patient will need to stay on fluid restricted high salt diet and possibly need to take a loop diuretic as well -patient needs 1 more day in hospital to get his serum sodium a little higher prior to discharge home 2. Type 2 diabetes -stable, continue metformin 3. Crohn's disease -currently stable, this was recently diagnosed when patient developed chronic rectal bleed -continue mesalamine and budesonide 4. History of CAD -stable, continue aspirin and statin 5. Left lower lobe lung mass -patient scheduled 02/[address]-guided biopsy at [facility] but will need to reschedule 6. Fatty liver disease/cirrhosis appearance on outside chest CT -patient states this has been previously worked up and considered due to fatty liver disease -ultrasound here shows somewhat nodular liver with increased hepatic echogenicity
[2021-02-15 20:37] LABS: Carbon Dioxide 21 mmol/L (22-32); Chloride 96 mmol/L (98-107); HEMOLYSIS 16 (0-50); Potassium 3.9 mmol/L (3.4-5.1); Sodium 125 mmol/L (137-145)
[2021-02-16 00:37] LABS: Carbon Dioxide 23 mmol/L (22-32); Chloride 97 mmol/L (98-107); HEMOLYSIS < 15 (0-50); Potassium 3.7 mmol/L (3.4-5.1); Sodium 128 mmol/L (137-145)
[2021-02-16 01:02] VITALS: O2SAT 98
[2021-02-16] MEDS: ACETAMINOPHEN 325 MG TABLET 650 MG PO (04:30)
[2021-02-16 04:56] LABS: Carbon Dioxide 23 mmol/L (22-32); Chloride 98 mmol/L (98-107); HEMOLYSIS < 15 (0-50); Potassium 3.7 mmol/L (3.4-5.1); Sodium 129 mmol/L (137-145)
[2021-02-16 05:00] VITALS: BP 135/63; PULSE 70; RESP 16; TEMP 36.3; O2SAT 94
[2021-02-16] MEDS: PANTOPRAZOLE DR 20 MG TABLET PO (05:36)
[2021-02-16 06:32] VITALS: O2SAT 94
[2021-02-16 07:31] VITALS: BP 134/74; PULSE 67; RESP 16; TEMP 36.3; O2SAT 94
[2021-02-16] MEDS: SODIUM CHLORIDE 3 % 500 ML 30 ML IV (07:36)
[2021-02-16 08:30] LABS: Carbon Dioxide 24 mmol/L (22-32); Chloride 97 mmol/L (98-107); HEMOLYSIS < 15 (0-50); Potassium 3.5 mmol/L (3.4-5.1); Sodium 128 mmol/L (137-145)
[2021-02-16] MEDS: BUDESONIDE 3 MG CAP 6 MG PO (09:13)
[2021-02-16] MEDS: ASPIRIN EC 81 MG TABLET PO (09:13)
[2021-02-16] MEDS: MESALAMINE 800 MG TABLET.DR 2400 MG PO (09:13)
[2021-02-16] MEDS: ATORVASTATIN 20 MG TABLET 80 MG PO (09:13)
[2021-02-16] MEDS: METFORMIN XR 500 MG TABLET PO (09:13)
[2021-02-16] MEDS: EZETIMIBE 10 MG TABLET PO (09:20)
--- NOTE | 2021-02-16 11:10 | PC.NURSE ---
Patient feeling much better, talkative and without complaint today. Patient eager for discharge to home with his . Discharge instructions reviewed with patient and his , they state understanding and have no further questions or concerns at this time. IV dc'd intact. Patient scheduled his follow up appointment with his PCP doctor with sodium recheck for Saturday. Patient in contact with his author to ensure CT biopsy is rescheduled. Discharge handouts as well as signs and symptoms of hyponatremia reviewed with patient, patient instructed to call his PCP for questions or concerns. Instructed to seek emergent care if symptoms return or worsen. Escorted out via wheelchair by NATALYA with all his belongings.
--- NOTE | 2021-02-16 13:11 | CM.DPNOTE ---
Addendum entered by ADRIANNE Donovan 02/16/21 13:52: IMM reviewed and provided. Original Note: DC Note DC order in place today and patient eager to return home. Supportive spouse here to transport patient home. Close outpatient f/u recommended. 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
--- NOTE | 2021-02-16 18:29 | P.DS_ITS ---
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 Patient's , who was at bedside, states that the patient has been more confused over the past 2 days but has had difficulty walking as well over the past 2 weeks. She has not noticed any focal deficits and the patient is quite strong. She denies any slurred speech or facial droop. Patient denies any headaches, nausea, vomiting. His diarrhea is at baseline but he had been having bloody diarrhea previously and was on mesalamine and budesonide for treatment of Crohn's. Patient was due to follow-up with a production technologist for a left lung mass that was seen on a CT scan back in December of this year. Per review of that CT scan that showed a left lower lobe 3 cm mass with possible metastatic lymph nodes as well as a cirrhotic appearing liver. His also reports a recent previous cardiac workup which included an ultrasound and stress test which was unremarkable. That was done for a workup of exertional dyspnea that was attributed to his new left lower lung mass. In the emergency room, the patient was afebrile, mildly hypertensive, but the remainder of his vital signs were unremarkable. Laboratory evaluation showed an unremarkable CBC, normal coagulation studies, chemistries revealed a sodium of 118, chloride of 86, creatinine 0.43, glucose of 156. AST and ALT were mildly elevated at 96 and 83 respectively. Troponin was within normal limits at 0.014. Urinalysis showed 0-1 rbc's, no white blood cells, +1 protein, and specific gravity of 1.020. Random urine sodium taken in the emergency room before any intervention showed a value of 118. Urine osmolality is a send out test is currently pending. Urine tox screen was negative. COVID-[address] of his head was unremarkable. Patient was admitted to Medicine for further management of symptomatic hyponatremia. Discharge Providers Provider Date of admission: 02/13/21 16:51 Discharge Date: 02/16/21 Primary care physician: Antonio Gore DO Discharge provider: Dirk Lipscomb MD Summary Hospital Course Discharge Diagnosis: 1. Acute severe hyponatremia secondary to SIADH 2. Left lower lobe lung mass 3. Type 2 diabetes 4. Crohn's disease 5. History of CAD 6. Fatty liver disease/possible cirrhosis Patient presented with acute confusion associated with severe hyponatremia with sodium of 118 on admission. His urine sodium was 118 and urine osmolarity 695 consistent with diagnosis of SIADH associated with known left lung mass. Patient was started on 3% NS with gradual recovery of his serum sodium from 118- 124 in the 1st 24 hours and then additional increase to 128 prior to discharge. He had complete recovery of altered mental status and difficulty with balance upon correction of his sodium deficit. He is instructed to continue on strict fluid restriction 800 cc per day and liberalizing his sodium intake as much as possible. He should have a repeat serum sodium in 1 week and then weekly for a while until ascertained levels are stable. He will reschedule the CT-guided biopsy at [facility] for recent diagnosed left lung mass. Status at Discharge Cognitive/behavioral status at discharge: oriented Functional status at discharge: independent ambulation Overall status at discharge: patient is back to baseline Time Spent with Patient Time spent: Greater than 30 minutes Exam Vital Signs (past 8 hours): Oxygen Delivery Method Room Air Oxygen Flow Rate 0 Objective Labs Result Diagrams: 02/14/21 05:25 02/16/21 08:07 Labs: Laboratory Results - last 24 hr 02/15/21 02/16/21 02/16/21 20:18 00:16 04:38 Sodium 125 L 128 L 129 L Potassium 3.9 3.7 3.7 Chloride 96 L 97 L 98 Carbon Dioxide 21 L 23 23 02/16/21 08:07 Sodium 128 L Potassium 3.5 Chloride 97 L Carbon Dioxide 24 PFSH Medical History Carotid bruit (08/06/11) Congestion of both ears Diaphragmatic hernia (08/06/11) Diverticulosis (08/06/11) Insomnia, persistent Muscle strain of left lower leg Obstructive sleep apnea of adult (~08/06/11) Snoring Surgical History History of angioplasty History of angioplasty Status post arthroscopy Family History Brother Heart disease High cholesterol Brother Age: 76 High cholesterol Father Heart disease Diabetes mellitus High cholesterol Mother Diabetes mellitus Heart disease High cholesterol Sister Age: 67 High cholesterol Social History household members: spouse and other Smoking Status: Former smoker Tobacco: How many years used: 44 alcohol intake: current substance use type: former substance user and marijuana Discharge Plan Discharge Plan Patient Disposition: Home Provider Discharge Comment: You were treated for hyponatremia (low sodium) c aused by a condition called SIADH. It is likely related to the lung tumor. Your admit sodium was 118. Your discharge sodium was 128. Goal is to keep your sodium level close to 130. Make sure you are following fluid restrictions and consuming plenty of salt with meals and eating salty snacks. Restrict fluids (water, coffee, soda, juice, etc) to 800 cc per day which is a little more than 3 cups (8 oz/cup) daily. Monitor for puffiness in hands and feet as you increase your salt consumption. You should have your sodium checked weekly for the next few weeks then at least monthly thereafter. Please reschedule your lung biopsy at [facility]. Discharge orders & Medications Prescriptions: Continued metformin 500 mg tablet extended release 24 hr 500 mg PO BID 30 Days Qty: 180 RF: 2 multivitamin [Multiple Vitamins] tablet 1 tab PO DAILY RF: 0 aspirin 81 mg tablet,delayed release (DR/EC) 81 mg PO DAILY RF: 0 atorvastatin [Lipitor] 80 mg tablet 80 mg PO Q DAY Qty: 90 RF: 3 ezetimibe [Zetia] 10 mg tablet 10 mg PO DAILY Qty: 90 RF: 3 pantoprazole [Protonix] 20 mg tablet,delayed release (DR/EC) 20 mg PO QDAY Qty: 90 RF: 3 diphenhydramine-acetaminophen [Tylenol PM Extra Strength] 25-500 mg tablet 2 tab PO BEDTIME PRN (Reason: Sleep) RF: 0 budesonide 3 mg capsule,delayed,extend.release 6 mg PO BID RF: 0 mesalamine 1.2 gram tablet,delayed release (DR/EC) 2.4 g PO BID RF: 0 vitamin B complex [B Complex-Vitamin B12] Tablet 1 tab PO DAILY RF: 0 calcium carbonate-vitamin D3 [Calcium 600 with Vitamin D3] 600 mg(1,500mg) - 500 unit capsule 1 cap PO DAILY RF: 0 Follow up/Referrals: Antonio Gore, [Primary Care Provider] - Diet/Activity/Treatments Diet: Regular Diet comment: High sodium. Fluid restrict 800 cc per day. Visit Report/Discharge Packet Instructions: DI for Hyponatremia, How to Prevent Falls Discharge Data Primary Care Provider: Antonio Gore
== END 2021-02-16 11:16 | disposition home or self-care (01) | DRG 643 ==
LOC: ED 16:48 → AC 16:54
PROVIDERS: Internal Medicine; Nurse Practitioner Family; Admitting Provider Internal Medicine; Emergency Provider Emergency Medicine; PCP Family Medicine; Referring Provider Emergency Medicine; Visit Provider Internal Medicine
DX: E22.2 Syndrome of inappropriate secretion of antidiuretic hormone (principal); G93.41 Metabolic encephalopathy; K50.90 Crohn's disease, unspecified, without complications; C34.32 Malignant neoplasm of lower lobe, left bronchus or lung; E11.9 Type 2 diabetes mellitus without complications; Z79.84 Long term (current) use of oral hypoglycemic drugs; I25.10 Atherosclerotic heart disease of native coronary artery without angina pectoris; Z95.5 Presence of coronary angioplasty implant and graft; R74.01 Elevation of levels of liver transaminase levels; G47.33 Obstructive sleep apnea (adult) (pediatric); Z87.891 Personal history of nicotine dependence; Z20.822 Contact with and (suspected) exposure to COVID-19
CPT/HCPCS: 36415; 51798; 70450; 71045; 76705; 80048; 80051; 80053; 80076; 80305; 81001; 82550; 82962; 83036; 83735; 83935; 84295; 84300; 84439; 84443; 84484; 85025; 85610; 85730; 86704; 86706; 86803; 87040; 87340; 87635; 93005; 94760; 96360; 99284; C9803; J1650

== ENCOUNTER 2021-02-17 21:06 | Inpatient (IN) | payer MEDICARE, OTHER, SELFPAY ==
[2021-02-13 16:58] VITALS: BMI 26.9
--- NOTE | 2021-02-17 21:15 | ED_ITS ---
HPI - Altered Mental Status General Chief Complaint: Altered Mental Status Stated Complaint: CONFUSION SODIUM LEVELS LOW Time Seen by Provider: 02/17/21 21:10 Source: patient and family Mode of arrival: Wheelchair Limitations: no limitations History of Present Illness HPI narrative: 70-year-old male with history of coronary artery disease (multiple stents), Crohn's disease, COPD, type 2 diabetes with recent hospit alization for confusion secondary to hyponatremia returns with family and concern that the symptoms are back. He had been discharged yesterday and over the course of the day today he has become slowly, and increasingly confused again. He has had no falls, traumas or injury. He denies any chest pain or shortness of breath. He has no abdominal pain or nausea or vomiting. He has had no fever or chills. Patient has a and had been scheduled for a biopsy at [facility] but that was delayed. Related Data Home Medications Medication Instructions Recorded Confirmed multivitamin 1 tab PO DAILY 07/28/18 02/13/21 aspirin 81 mg tablet,delayed 81 mg PO DAILY 04/22/19 02/13/21 release calcium carbonate 600 mg (1,500 1 cap PO DAILY cap 01/18/21 02/13/21 mg)-vitamin D3 500 unit capsule diphenhydramine 25 2 tab PO BEDTIME PRN tab 01/18/21 02/13/21 mg-acetaminophen 500 mg tablet vitamin B complex 1 tab PO DAILY 01/18/21 02/13/21 budesonide 6 mg PO BID 02/14/21 02/14/21 mesalamine 2.4 g PO BID 02/14/21 02/14/21 Previous Rx's Medication Instructions Recorded atorvastatin 80 mg tablet 80 mg PO Q DAY #90 tab 03/22/20 ezetimibe 10 mg tablet 10 mg PO DAILY #90 tab 03/22/20 pantoprazole 20 mg tablet,delayed 20 mg PO QDAY #90 tab 03/22/20 release metformin 500 mg tablet,extended 500 mg PO BID 30 Days #180 tab 01/13/21 release 24 hr Allergies Allergy/AdvReac Type Severity Reaction Status Date / Time No Known Drug Allergies Allergy Verified 01/18/21 14:41 Review of Systems Constitutional Constitutional: Denies chills, Denies fatigue, Denies fever(s), Denies frequent falls, Denies lethargy and Denies weakness Eyes Eyes: Denies change in vision, Denies eye discharge, Denies irritation and Denies loss of vision ENT Ears, Nose, Mouth, and Throat: Denies change in voice, Denies dizziness, Denies neck pain, Denies sore throat and Denies throat swelling Cardiovascular Cardiovascular: Denies chest pain, Denies irregular heart rhythm, Denies lighth eadedness, Denies palpitations, Denies dyspnea, Denies dyspnea on exertion and Denies orthopnea Respiratory Respiratory: Denies cough, Denies dyspnea, Denies dyspnea on exertion and Denies wheezing Gastrointestinal Gastrointestinal: Denies abdominal pain, Denies change in bowel habits, Denies diarrhea, Denies nausea and Denies vomiting Musculoskeletal Musculoskeletal: Denies neck pain and Denies numbness Integumentary/Breasts Skin/Breast: Denies pruritus, Denies erythema, Denies rash and Denies wounds Neurologic Neurologic: Denies behavioral changes, Denies confusion, Denies dizziness, Denies frequent falls, Denies loss of vision, Denies numbness and Denies weakness Psychiatric Psychiatric: Denies anxiety, Denies behavioral changes, Denies confusion, Denies depression, Denies homicidal ideation and Denies suicidal ideation Endocrine Endocrine: Denies fatigue, Denies flushing and Denies palpitations Hematologic/Lymphatic Hematologic/Lymphatic: Denies easy bruising Allergic/Immunologic Allergic/Immunologic: Denies urticaria, Denies throat swelling and Denies wheezing Patient History Medical History Carotid bruit (08/06/11) Congestion of both ears Diaphragmatic hernia (08/06/11) Diverticulosis (08/06/11) Insomnia, persistent Muscle strain of left lower leg Obstructive sleep apnea of adult (~08/06/11) Snoring Surgical History History of angioplasty History of angioplasty Status post arthroscopy Family History Brother Heart disease High cholesterol Brother Age: 76 High cholesterol Father Heart disease Diabetes mellitus High cholesterol Mother Diabetes mellitus Heart disease High cholesterol Sister Age: 67 High cholesterol Social History household members: spouse and other Smoking Status: Former smoker Tobacco: How many years used: 44 alcohol intake: current substance use type: former substance user and marijuana Smoking Status: Former smoker alcohol intake frequency: holidays/special occasions only Substance Use Type: does not use Exam Narrative Exam Narrative: GENERAL: [70] year old patient appears stated age. Well- developed patient, in mild distress. Awake, sluggish to respond and visibly frustrated by his inability to articulate. HEAD: Atraumatic. Normocephalic. EYES: Pupils equal round and reactive. Extraocular motions intact. No scleral icterus. No injection or drainage. ENT: Nose without bleeding, purulent drainage. Throat without erythema, tonsillar hypertrophy or exudate. Airway patent. NECK: Trachea midline. Non tender CARDIOVASCULAR: Regular rate and rhythm without murmurs, gallops, or rubs. RESPIRATORY: Clear to auscultation. Breath sounds equal bilaterally. No wheezes, rales, or rhonchi. GASTROINTESTINAL: Abdomen soft, non-tender, nondistended. EXTREMITIES: No edema or joint tenderness. BACK: Nontender without deformity or crepitance. No flank tenderness. NEURO: Awake and alert, no obvious focal findings, cranial nerves 2-12 grossly intact SKIN: No rash or erythema of visible areas Initial Vital Signs Initial Vital Signs: Vital Signs Pulse Rate 72 02/17/21 21:26 Respiratory Rate 18 02/17/21 21:26 Blood Pressure 161/77 H 02/17/21 21:26 Pulse Oximetry 93 02/17/21 21:26 Course Orders Ordered: ED Orders 02/17/21 21:19 EKG-12 Lead Stat 02/17/21 21:20 Complete Blood Count AUTO DIFF Stat Comprehensive Metabolic Panel Stat 02/17/21 22:16 Creatinine Urine Random Stat Sodium Urine Random Stat 02/17/21 22:32 CT head/brain wo con Stat 02/17/21 22:34 XR chest 1V Stat 02/17/21 23:55 Basic Metabolic Panel Stat 02/18/21 00:39 COVID19 - ADMIT (SLIDE ATTENDANT swab/PCR) Stat 02/18/21 00:56 Education, smoking cessation ONGOING Acetaminophen (Acetaminophen 325 Mg Tablet) 650 mg PO Q6HR PRN PRN Reason: Fever/Mild Pain (1-3) Aspirin (Aspirin Ec 325 Mg Tablet) 325 mg PO DAILY JH Clopidogrel Bisulfate (Clopidogrel 75 Mg Tablet) 75 mg PO DAILY JH Sodium Chloride (Normal Saline 0.9%) 1,000 mls @ 125 mls/hr IV CONT J[facility] Last Infusion: 02/18/21 01:38 Dose: 0 mls/hr Documented by: Admin: 02/17/21 21:47 Dose: 125 mls/hr Documented by: CÉSAR Naloxone HCl (Naloxone 0.4 Mg/Ml Vial) 0.2 mg IV Q2MIN PRN PRN Reason: Opiate Reversal Ondansetron HCl (Ondansetron 4 Mg/2 Ml Inj) 4 mg IV Q8HR PRN PRN Reason: Nausea And Vomiting Discontinued Medications Sodium Chloride (Normal Saline 0.9%) 1,000 mls @ 125 mls/hr IV CONT J[facility] Consultations Consultation #1: Discussed with nephrology at [facility], no concern for osmotic demyelination in, sodium replacement very appropriate. Vital Signs Vital signs: Vital Signs - 8 hr 02/17/21 21:26 02/17/21 21:27 02/17/21 22:00 Temperature 98 F Pulse Rate 72 79 73 Respiratory Rate 18 16 17 Blood Pressure 161/77 H 173/76 H 170/83 H Pulse Oximetry 93 93 98 02/17/21 22:30 02/17/21 23:00 02/17/21 23:30 Temperature Pulse Rate 71 72 71 Respiratory Rate 18 19 16 Blood Pressure 180/82 H 167/79 H 184/82 H Pulse Oximetry 90 L 94 93 02/18/21 00:00 Temperature Pulse Rate 78 Respiratory Rate 14 Blood Pressure 163/82 H Pulse Oximetry 93 MDM - Altered Mental Status Lab Data Result diagrams: 02/17/21 21:20 02/18/21 00:15 Labs: Lab Results 02/17/21 02/17/21 02/17/21 Range/Units 21:20 21:20 22:16 WBC 7.9 (4.5-11.0) X10^3/uL RBC 4.46 L (4.5-5.9) X10^6/uL Hgb 14.1 (13.5-17.5) g/dL Hct 40.6 L (41-53) % MCV 91.0 (80-100) fL MCH 31.6 (26-34) PG MCHC 34.7 (30-36) % RDW 14.1 (11.6-14.8) % Plt Count 105 L (150-400) X10^3/uL Neut % (Auto) 72.6 (50-75) % Lymph % (Auto) 18.4 L (25-40) % [place] % (Auto) 8.1 (3-14) % Eos % (Auto) 0.3 L (2-4) % Baso % (Auto) 0.6 (0-2) % Neut # (Auto) 5700 (2323-7891) /uL Lymph # (Auto) 1500 (0241-3865) /uL [place] # (Auto) 600 (0-900) /uL Eos # (Auto) 0 (0-450) /uL Baso # (Auto) 0 (0-100) /uL Sodium 135 L (137-145) mmol/L Potassium 4.2 (3.4-5.1) mmol/L Chloride 101 (98-107) mmol/L Carbon Dioxide 26 (22-32) mmol/L BUN 20 (9-20) mg/dL Creatinine 0.60 L (0.66-1.25) mg/dL Estimated GFR > 60.0 (>60) mL/min BUN/Creatinine Ratio 33.3 H (6-22) Glucose 150 H (80-110) mg/dL Calcium 9.1 (8.4-10.2) mg/dL Magnesium (1.6-2.3) mg/dL Total Bilirubin 1.5 H (0.2-1.3) mg/dL AST 100 H (17-59) IU/L ALT 91 H (<50) IU/L Alkaline Phosphatase 95 (38-126) U/L Total Protein 8.2 (6.3-8.2) g/dL Albumin 4.3 (3.5-5.0) g/dL Globulin 3.9 (1.7-4.1) g/dL Albumin/Globulin Ratio 1.1 (1.0-2.8) Ur Random Sodium 148 H (30-90) mmol/L Urine Creatinine 97.5 mg/dL Ethyl Alcohol ( - 10) mg/dL SARS-CoV-2 (PCR) (Negative) 02/18/21 02/18/21 02/18/21 Range/Units 00:15 00:15 00:15 WBC (4.5-11.0) X10^3/uL RBC (4.5-5.9) X10^6/uL Hgb (13.5-17.5) g/dL Hct (41-53) % MCV (80-100) fL MCH (26-34) PG MCHC (30-36) % RDW (11.6-14.8) % Plt Count (150-400) X10^3/uL Neut % (Auto) (50-75) % Lymph % (Auto) (25-40) % [place] % (Auto) (3-14) % Eos % (Auto) (2-4) % Baso % (Auto) (0-2) % Neut # (Auto) (3737-6693) /uL Lymph # (Auto) (6387-9513) /uL [place] # (Auto) (0-900) /uL Eos # (Auto) (0-450) /uL Baso # (Auto) (0-100) /uL Sodium 133 L (137-145) mmol/L Potassium 3.5 (3.4-5.1) mmol/L Chloride 100 (98-107) mmol/L Carbon Dioxide 27 (22-32) mmol/L BUN 18 (9-20) mg/dL Creatinine 0.54 L (0.66-1.25) mg/dL Estimated GFR > 60.0 (>60) mL/min BUN/Creatinine Ratio 33.3 H (6-22) Glucose 143 H (80-110) mg/dL Calcium 8.9 (8.4-10.2) mg/dL Magnesium 2.1 (1.6-2.3) mg/dL Total Bilirubin (0.2-1.3) mg/dL AST (17-59) IU/L ALT (<50) IU/L Alkaline Phosphatase (38-126) U/L Total Protein (6.3-8.2) g/dL Albumin (3.5-5.0) g/dL Globulin (1.7-4.1) g/dL Albumin/Globulin Ratio (1.0-2.8) Ur Random Sodium (30-90) mmol/L Urine Creatinine mg/dL Ethyl Alcohol < 10 ( - 10) mg/dL SARS-CoV-2 (PCR) (Negative) 02/18/21 Range/Units 00:39 WBC (4.5-11.0) X10^3/uL RBC (4.5-5.9) X10^6/uL Hgb (13.5-17.5) g/dL Hct (41-53) % MCV (80-100) fL MCH (26-34) PG MCHC (30-36) % RDW (11.6-14.8) % Plt Count (150-400) X10^3/uL Neut % (Auto) (50-75) % Lymph % (Auto) (25-40) % [place] % (Auto) (3-14) % Eos % (Auto) (2-4) % Baso % (Auto) (0-2) % Neut # (Auto) (2467-7216) /uL Lymph # (Auto) (4682-0160) /uL [place] # (Auto) (0-900) /uL Eos # (Auto) (0-450) /uL Baso # (Auto) (0-100) /uL Sodium (137-145) mmol/L Potassium (3.4-5.1) mmol/L Chloride (98-107) mmol/L Carbon Dioxide (22-32) mmol/L BUN (9-20) mg/dL Creatinine (0.66-1.25) mg/dL Estimated GFR (>60) mL/min BUN/Creatinine Ratio (6-22) Glucose (80-110) mg/dL Calcium (8.4-10.2) mg/dL Magnesium (1.6-2.3) mg/dL Total Bilirubin (0.2-1.3) mg/dL AST (17-59) IU/L ALT (<50) IU/L Alkaline Phosphatase (38-126) U/L Total Protein (6.3-8.2) g/dL Albumin (3.5-5.0) g/dL Globulin (1.7-4.1) g/dL Albumin/Globulin Ratio (1.0-2.8) Ur Random Sodium (30-90) mmol/L Urine Creatinine mg/dL Ethyl Alcohol ( - 10) mg/dL SARS-CoV-2 (PCR) Negative (Negative) Urine Dip Bedside Urine Glucose 250 mg/dl Bedside Urine Bilirubin - Negative Bedside Urine Ketone - Negative Urine Specific [place] 1.025 Bedside Urine Occult Blood - Negative Bedside Urine pH 6.0 Bedside Urine Protein +/- 15 Bedside Urine Urobilinogen +/- 1mg Bedside Urine Nitrite - Negative Bedside Urine Leukocytes - Negative Esterase Imaging Data CT scan - head: Radiologist's Impression: Normal CT of head MDM Narrative Medical decision making narrative: Patient presents with of global encephalopathic picture, not on like his presentation a few days ago with hyponatremia. However, his labs are actually quite reassuring. His difficulty with speech and ambulation warrants ongoing evaluation including workup for stroke including echo and MRI. Discharge Plan Departure Patient Disposition: Admitted as Observation Clinical Impression: Acute alteration in mental status Admit Date/Time: 02/18/21 00:54 Admit Provider: Allyn Kent
[2021-02-17 21:26] VITALS: BP 161/77; PULSE 72; RESP 18; O2SAT 93
[2021-02-17 21:27] VITALS: BP 173/76; PULSE 79; RESP 16; TEMP 36.6; O2SAT 93; BMI 27.0
[2021-02-17 21:44] LABS: Alanine Aminotransferase 91 IU/L (<50); Albumin 4.3 g/dL (3.5-5.0); Albumin Globulin Ratio 1.1 (1.0-2.8); Alkaline Phosphatase 95 U/L (38-126); BUN Creatinine Ratio 33.3 (6-22); Bilirubin Total 1.5 mg/dL (0.2-1.3); Blood Urea Nitrogen 20 mg/dL (9-20); Calcium 9.1 mg/dL (8.4-10.2); Carbon Dioxide 26 mmol/L (22-32); Chloride 101 mmol/L (98-107); Estimated Glomerular Filt Rate > 60.0 mL/min (>60); Globulin 3.9 g/dL (1.7-4.1); Glucose 150 mg/dL (80-110); Sodium 135 mmol/L (137-145); Total Protein 8.2 g/dL (6.3-8.2)
[2021-02-17] MEDS: SODIUM CHLORIDE 0.9% 1,000 ML 125 ML IV (21:47)
[2021-02-17 21:48] LABS: HEMOLYSIS 136 (0-50)
[2021-02-17 21:49] LABS: Potassium 4.2 mmol/L (3.4-5.1)
[2021-02-17 21:50] LABS: Add Manual Diff / Slide Review NO; Aspartate Aminotransferase 100 IU/L (17-59); Basophils Absolute Auto 0 /uL (0-100); Basophils Percent Auto 0.6 % (0-2); Eosinophils Absolute Auto 0 /uL (0-450); Eosinophils Percent Auto 0.3 % (2-4); Hematocrit 40.6 % (41-53); Hemoglobin 14.1 g/dL (13.5-17.5); Lymphocytes Absolute Auto 1500 /uL (1100-4500); Lymphocytes Percent Auto 18.4 % (25-40); Mean Corpuscular HGB Conc 34.7 % (30-36); Mean Corpuscular Hemoglobin 31.6 PG (26-34); Monocytes Absolute Auto 600 /uL (0-900); Monocytes Percent Auto 8.1 % (3-14); Neutrophils Absolute Auto 5700 /uL (1500-7000); Neutrophils Percent Auto 72.6 % (50-75); Platelet Count 105 X10^3/uL (150-400); Red Blood Cell Count 4.46 X10^6/uL (4.5-5.9); Red Cell Distribution Width 14.1 % (11.6-14.8); White Blood Cell Count 7.9 X10^3/uL (4.5-11.0)
[2021-02-17 22:00] VITALS: BP 170/83; PULSE 73; RESP 17; O2SAT 98
[2021-02-17 22:30] VITALS: BP 180/82; PULSE 71; RESP 18; O2SAT 90
--- NOTE | 2021-02-17 22:32 | DI.CT.S_ITS ---
PROCEDURE: CT HEAD/BRAIN WO CON INDICATIONS: altered TECHNIQUE: Noncontrast 4.5 mm thick angled axial sections acquired from the foramen magnum to the vertex, with coronal and sagittal reformats. For radiation dose reduction, the following was used: automated exposure control, adjustment of mA and/or kV according to patient size. COMPARISON: None. FINDINGS: Image quality: Excellent. CSF spaces: Basal cisterns are patent. No extra-axial fluid collections. The ventricles are symmetric in size and shape. Brain: No intracranial bleeds or masses. There is cerebral volume loss for age, with resultant ventricular and sulcal prominence. There are periventricular and deep white matter chronic small vessel ischemic changes. There is intracranial internal carotid artery atherosclerosis. Skull and face: Calvarium and visualized facial bones appear intact, without suspicious lesions. Sinuses: Visualized sinuses and mastoids are clear. IMPRESSION: Normal for age, source of altered mental status is not found. Dictated by: Arthur Guillen M.D. on 02/18/2021 at 9:44 Approved by: Arthur Guillen M.D. on 02/18/2021 at 9:45
--- NOTE | 2021-02-17 22:34 | DI.RAD.S_ITS ---
PROCEDURE: XR CHEST 1V INDICATIONS: SOB, hypoxia TECHNIQUE: One view of the chest was acquired. COMPARISON: [facility], CT, CT HIGH RESOLUTION CHEST, 01/09/2021, 13:45. Merged With [facility], CR, XR CHEST 1V, 02/13/2021, 14:17. Merged With [facility], CR, XR CHEST 2V, 03/16/2019, 11:35. FINDINGS: Surgical changes and devices: None. Lungs and pleura: Lungs are abnormal with chronic interstitial prominence. The film technique is light, and when taken into account this likely indicates absence of interval worsening.. No pleural effusions or pneumothorax. Mediastinum: Mediastinal contours appear normal. Heart size is normal. Bones and chest wall: No suspicious bony lesions. Overlying soft tissues appear unremarkable. IMPRESSION: Chronic interstitial prominence, interstitial lung disease with pulmonary fibrosis appears likely present. Given light film technique it is not possible to entirely exclude superimposed mild CHF or atypical pneumonitis in addition to the interstitial lung disease. Dictated by: Arthur Guillen M.D. on 02/18/2021 at 9:46 Approved by: Arthur Guillen M.D. on 02/18/2021 at 9:48
[2021-02-17 22:49] LABS: Creatinine Urine Random 97.5 mg/dL; Sodium Urine Random 148 mmol/L (30-90)
[2021-02-17 23:00] VITALS: BP 167/79; PULSE 72; RESP 19; O2SAT 94
[2021-02-17 23:30] VITALS: BP 184/82; PULSE 71; RESP 16; O2SAT 93
[2021-02-18] VITALS (14 sets, daily range): BP systolic 132–169; BP diastolic 68–84; PULSE 63–83; RESP 14–20; TEMP 36.1–37.1; O2SAT 92–95; BMI 26.3
[2021-02-18 00:30] LABS: BUN Creatinine Ratio 33.3 (6-22); Blood Urea Nitrogen 18 mg/dL (9-20); Calcium 8.9 mg/dL (8.4-10.2); Carbon Dioxide 27 mmol/L (22-32); Chloride 100 mmol/L (98-107); Estimated Glomerular Filt Rate > 60.0 mL/min (>60); Glucose 143 mg/dL (80-110); HEMOLYSIS < 15 (0-50); Potassium 3.5 mmol/L (3.4-5.1); Sodium 133 mmol/L (137-145)
--- NOTE | 2021-02-18 01:12 | DI.MRI.S_ITS ---
PROCEDURE: MR STROKE Pre- and post-contrast brain MRI, non-contrast brain MR angiogram, pre- and postcontrast neck MR angiogram INDICATIONS: Global encephalopathy TECHNIQUE: Brain: Noncontrast axial T1 spin echo, axial T2 fast spin echo, sagittal and axial FLAIR, coronal T2 fast spin echo, axial gradient echo, axial diffusion and ADC through the brain. After the administration of contrast, axial 3D VIBE of the cranial vasculature and brain. Brain MRA: Non-contrast 3-D time of flight MR angiogram, with multiple coilmdc-yessdzbhc-eqzubdzuuz (MIP) reformats performed. Neck MRA: Axial and sagittal TruFISP through the neck. Coronal dynamic MR angiogram during administration of contrast in the arterial and venous phases, with 3-dimenstional fvkkvkf-lrjsuxypx-eqeksakuse (MIP) reformats constructed from subtraction images. COMPARISON: [facility], CT, CT STROKE, 02/13/2021, 14:35. [facility], CT, CT HEAD/BRAIN WO CON, 02/17/2021, 22:39. FINDINGS: Image quality: Excellent. BRAIN: CSF spaces: Ventricles are normal in size and shape. Basal cisterns are patent. No extra-axial fluid collections. Brain: No intracranial bleeds or mass effects. Tenorio-white matter interface is normal. Diffusion weighted images show no acute ischemic insults. Brainstem appears normal. Normal intravascular flow voids are present. No abnormal intracranial enhancement. Skull and face: Calvarial marrow signal is normal. Orbits appear normal. Sinuses: Sinuses and mastoids are clear. BRAIN MR ANGIOGRAM: Anterior circulation: Intracranial internal carotid arteries are normal in size and enhancement. The flow within the paired anterior cerebral arteries is normal and symmetric. The flow within the middle cerebral arteries is normal and symmetric. The anterior communicating artery is seen. No stenoses, occlusions, or aneurysms. Posterior circulation: The visualized portions of the vertebral arteries demonstrate normal caliber, and join to form a normal appearing basilar artery. The flow within the posterior cerebral arteries is normal and symmetric. No stenoses, occlusions, or aneurysms. NECK MR ANGIOGRAM: Carotids: Great vessels demonstrate a conventional anatomy as they arise from the aortic arch. The origins of the common carotid arteries appear patent. The calibers and courses of both common carotid arteries are normal. The bifurcation regions appear normal bilaterally. The internal carotid arteries demonstrate normal course and caliber. Posterior circulation: The origins of the vertebral arteries appear patent. More superior portions of both vertebral arteries demonstrate normal course and caliber, and join to form a normal appearing basilar artery. Miscellaneous: Subclavian arteries appear patent. Pre-contrast images through the neck show no soft tissue abnormalities. IMPRESSION: BRAIN MRI: Mild microvascular atherosclerotic change in the deep white matter of each hemisphere but no sign of stroke open (either acute or chronic) is found. BRAIN MR ANGIOGRAM: Normal intracranial MR angiogram. NECK MR ANGIOGRAM: Normal cervical MR angiogram. Dictated by: Arthur Guillen M.D. on 02/18/2021 at 8:42 Approved by: Arthur Guillen M.D. on 02/18/2021 at 8:44
[2021-02-18 01:13] LABS: Ethanol (ETOH) < 10 mg/dL
[2021-02-18 01:15] LABS: Magnesium 2.1 mg/dL (1.6-2.3)
--- NOTE | 2021-02-18 01:20 | P.HP_ITS ---
History of Present Illness History of Present Illness Date Patient Seen: 02/18/21 Time Patient Seen: 01:30 Chief complaint: CONFUSION SODIUM LEVELS LOW Narrative: Patient is a 70-year-old male with history of coronary artery disease (multiple stents), Crohn's disease, COPD, type 2 diabetes with recent hospitalization for confusion secondary to hyponatremia returns with family and concern that the symptoms are back. He had been discharged yesterday and over the course of the day today he has become slowly, and increasingly confused again. He has had no falls, traumas or injury. He denies any chest pain or shortness of breath. He has no abdominal pain or nausea or vomiting. He has had no fever or chills. Patient has a and had been scheduled for a biopsy at [facility] but that was delayed until March 06, 2021. His daughter states that he was fine yesterday but today began to rapidly change. Daughter denies ingestion of alcohol, medications, fall, injury, or trauma. Patient is unable to assist in HPI or ROS as he is visibly frustrated by his inability to find the words to answer questions nor is he able to process the questions appr opriately. At 1 point I asked the patient if he was in any pain and the patient simply repeated the question back to me as if trying to process the meaning of the question. Patient appears in no distress, and is resting quietly. His daughter does advise that his affect is flatand a change from his baseline,normally the patient is a much more positive energetic individual. She also states that he is normally far more engaged and aware. Patient was previously admitted on 02/13/2021 for metabolic encephalopathy in relation to hyponatremia with a sodium level of 118. Patient's sodium was corrected over a total of 4 days for total of 19 points ending in a sodium level of 135 on discharge at which time the patient's encephalopathy had resolved. On admit today patient's blood pressure is mildly elevated at 163/82, in the ED patient was SOB and unable to sustain an O2 saturation above 90% on room air was subsequently placed on 2L/NC, currently has an O2 saturation of 93%. Patient presents with mild hyponatremia of 135 today creatinine 0.54 improved from discharge 0.60, patient's urine sodium on 02/13/2021 was 118, today urine sodium 148. Patient's liver enzymes were mildly elevated today over previous hospitalization bilirubin 1.5, AST 100, ALT 91, platelets were also slightly decreased at 105 patient's CBC mostly unremarkable. Patient's head CT was normal. Patient being admitted for acute toxic metabolic encephalopathy with mild symptomatic hyponatremia, patient is at risk for osmotic demyelination syndrome. Patient admitted for observation to the ICU. Patient History Medical History (Updated 02/18/21 @ 04:17 by GURPREET Brito) Carotid bruit (08/06/11) Congestion of both ears Diaphragmatic hernia (08/06/11) Diverticulosis (08/06/11) Emphysema lung Insomnia, persistent Mass of lower lobe of left lung Muscle strain of left lower leg Obstructive sleep apnea of adult (~08/06/11) Snoring Surgical History History of angioplasty History of angioplasty Status post arthroscopy Family & Social History Family History Brother Heart disease High cholesterol Brother Age: 76 High cholesterol Father Heart disease Diabetes mellitus High cholesterol Mother Diabetes mellitus Heart disease High cholesterol Sister Age: 67 High cholesterol Social History: household members spouse,other Safety & Behavioral: Feels Safe in Current Yes Environment Been Physically Hurt or No Threatened By a Person Tobacco & Substance use: Smoking Status Former smoker alcohol intake current alcohol intake frequency holiday/special occasion Substance Use Type does not use Meds Home Medications and Allergies Home Medications Medication Instructions Recorded Confirmed Type multivitamin 1 tab PO DAILY 07/28/18 02/13/21 History aspirin 81 mg tablet,delayed 81 mg PO DAILY 04/22/19 02/13/21 History release atorvastatin 80 mg tablet 80 mg PO Q DAY #90 tab 03/22/20 02/13/21 Rx ezetimibe 10 mg tablet 10 mg PO DAILY #90 tab 03/22/20 02/13/21 Rx pantoprazole 20 mg tablet,delayed 20 mg PO QDAY #90 tab 03/22/20 02/13/21 Rx release metformin 500 mg tablet,extended 500 mg PO BID 30 Days #180 tab 01/13/21 02/13/21 Rx release 24 hr calcium carbonate 600 mg (1,500 1 cap PO DAILY cap 01/18/21 02/13/21 History mg)-vitamin D3 500 unit capsule diphenhydramine 25 2 tab PO BEDTIME PRN tab 01/18/21 02/13/21 History mg-acetaminophen 500 mg tablet vitamin B complex 1 tab PO DAILY 01/18/21 02/13/21 History budesonide 6 mg PO BID 02/14/21 02/14/21 History mesalamine 2.4 g PO BID 02/14/21 02/14/21 History Allergies Allergy/AdvReac Type Severity Reaction Status Date / Time No Known Drug Allergies Allergy Verified 01/18/21 14:41 Review of Systems Review of Systems ROS: Yes unobtainable due to mental status Exam Vital Signs (past 8 hours): - 02/17/21 21:26 02/17/21 21:27 02/17/21 22:00 Temperature 98 F Pulse Rate 72 79 73 Respiratory Rate 18 16 17 Blood Pressure 161/77 H 173/76 H 170/83 H Pulse Oximetry 93 93 98 02/17/21 22:30 02/17/21 23:00 02/17/21 23:30 Temperature Pulse Rate 71 72 71 Respiratory Rate 18 19 16 Blood Pressure 180/82 H 167/79 H 184/82 H Pulse Oximetry 90 L 94 93 02/18/21 00:00 Temperature Pulse Rate 78 Respiratory Rate 14 Blood Pressure 163/82 H Pulse Oximetry 93 Oxygen Delivery Method Nasal Cannula Oxygen Flow Rate 2 Narrative Exam Narrative: General: Patient is a well-developed, well-nourished in no distress at this time, though patient's frustration at inability to communicate or understand is visibly observed.. HEENT: Normocephalic, atraumatic, extraocular muscles intact, oral pharynx is clear and mucous membranes are moist. Neck is supple and symmetric, trachea is midline, no adenopathy, no thyroid enlargement, nontender, no masses palpated. Negative for JVD Chest: Normal AP diameter and contour without kyphoscoliosis, no nasal flaring, retractions, or tachypneic labored Lungs: Auscultation of all lung cordero are clear without adventitious sounds, wheezes, rhonchi, or rales. Cardio: S1 & S2 with regular rate and rhythm without murmur, rubs, or gallops, no carotid bruit, no cardiac pulsations present. Abdomen: Soft nontender, negative for organomegaly, or masses. Bowel sounds are present in all 4 quadrants without guarding or rebound, no CVA tenderness. Musculoskeletal: Muscle strength and tone are equal within normal limits, no deformity, crepitus, effusions, cyanosis, clubbing or edema present. Full range of motion intact radial and pedal pulses are normal. Skin: Warm dry and intact without rashes, ulcerations or petechiae. Patient is without jaundice, notably bruising of the right forearm down to the top of the hand from previous hospitalization. Neuro: Alert and orientated x3, though patient seems to lack understanding of content and context, struggles with finding the correct words to verbally ex press himself. Strength is +5/5 in all extremities, sensation to touch intact, no gross deficits noted of cranial nerves. Psych: Patient has a well-kept appearance, flat affect, mental status attitude thought context and judgment are inappropriate for age. Objective Labs Result Diagrams: 02/17/21 21:20 02/18/21 00:15 Labs: Laboratory Results - last 24 hr 02/17/21 02/17/21 02/17/21 21:20 21:20 22:16 WBC 7.9 RBC 4.46 L Hgb 14.1 Hct 40.6 L MCV 91.0 MCH 31.6 MCHC 34.7 RDW 14.1 Plt Count 105 L Neut % (Auto) 72.6 Lymph % (Auto) 18.4 L [place] % (Auto) 8.1 Eos % (Auto) 0.3 L Baso % (Auto) 0.6 Neut # (Auto) 5700 Lymph # (Auto) 1500 [place] # (Auto) 600 Eos # (Auto) 0 Baso # (Auto) 0 Sodium 135 L Potassium 4.2 Chloride 101 Carbon Dioxide 26 BUN 20 Creatinine 0.60 L Estimated GFR > 60.0 BUN/Creatinine Ratio 33.3 H Glucose 150 H Calcium 9.1 Magnesium Total Bilirubin 1.5 H AST 100 H ALT 91 H Alkaline Phosphatase 95 Total Protein 8.2 Albumin 4.3 Globulin 3.9 Albumin/Globulin Ratio 1.1 Ur Random Sodium 148 H Urine Creatinine 97.5 Ethyl Alcohol 02/18/21 02/18/21 02/18/21 00:15 00:15 00:15 WBC RBC Hgb Hct MCV MCH MCHC RDW Plt Count Neut % (Auto) Lymph % (Auto) [place] % (Auto) Eos % (Auto) Baso % (Auto) Neut # (Auto) Lymph # (Auto) [place] # (Auto) Eos # (Auto) Baso # (Auto) Sodium 133 L Potassium 3.5 Chloride 100 Carbon Dioxide 27 BUN 18 Creatinine 0.54 L Estimated GFR > 60.0 BUN/Creatinine Ratio 33.3 H Glucose 143 H Calcium 8.9 Magnesium 2.1 Total Bilirubin AST ALT Alkaline Phosphatase Total Protein Albumin Globulin Albumin/Globulin Ratio Ur Random Sodium Urine Creatinine Ethyl Alcohol < 10 Assessment & Plan Assessment & Plan narrative: This is a 70 year old male with a past medical history of CAD status post multiple stents, Crohn's disease, emphysema, left lower lobe mass, Fatty Liver, non insulin-dependent type 2 diabetic who presented to the emergency room with worsening confusion over the past 24 hours since being discharged 02/17/2021 after correction of hyponatremia with presenting metabolic encephalopathy (admit 02/13-02/16/21) . Patient was admitted to Medicine for further management of acute toxic metabolic encephalopathy with symptomatic hyponatremia. 1. Acute Toxic Metabolic encephalopathy, acute, present on admission -unsure as to the cause at this time, possibly secondary to hyponatremia correction (ODS), other possibilities include steroid induced adrenal insuffici ency or CVA. Patient may also have a lower threshold in regards to sodium level changes, as his hyponatremia may have been chronic putting him at greater risk of ODS. And/or this may represent evolving metastatic disease. -ordered 8:00 a.m. cortisol to rule out primary adrenal insufficiency (due to SIADH) and/or secondary adrenal insufficiency induced due to the patient's chronic use budesonide for Crohn's disease. -patient admitted to ICU observation: because mild to moderate symptoms in a pa tient with hyponatremia, even those with sodium levels greater than 120 mEq/ L should be considered ominous and may evolve without warning to seizure, respiratory arrest, and herniation. -monitoring for these significant complications. -Possible SIADH secondary to his lung mass in addition to chronic steroid use. Appears euvolemic at this time. -patient had an decreased TSH of 0.24, FT4 1.17 on 02/14/2021-will repeat TSH and free T4 to r/o thyroid. 2. 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 Patient's sodium correction was in keeping with current guidelines. -serum sodium of 133 on admission. His urine sodium is also elevated at 148. Patient was released with a sodium of 133 less than 24 hours ago, he had originally presented with a sodium of 118, urine sodium 118 with the same symptoms. His sodium correction was done at a rate of 5 points/24 hours, 8 points in total/48 hours, and 12 points/72 hours, for total of 19 point correction over 4 days. Patient's sodium correction was not above 8 on any given day. It is unclear as to why the patient is similarly confused and disorientated when his sodium is not as low comparatively. CT head unremarkable in the ER. Ordered MR for tomorrow to rule out stroke and placed the patient on aspirin 325 and Plavix 75. -have started a fluid restriction diet: 800cc/day, will recheck sodium in the morning. -On previous admit the patients also reports a recent previous cardiac workup which included an ultrasound and stress test which was unremarkable. - PT /OT when improved. 3. Crohn's disease, chronic, not present on admission -continue home medications of mesalamine and budesonide when dosing known. both non-formulary will have to have family bring in. 4. Emphysema, chronic, not present on admission -patient does not appear to be on any inhalers. No respiratory symptoms at this time, continue to monitor. Emphysema was seen on his recent CT that revealed his left lower lobe mass. 5. Non insulin-dependent type 2 diabetes, acute on chronic, present on ad mission, uncontrolled -as evidence by a glucose of 143 on admit, - start sliding scale patient reports good control on low dose metformin. - hold metformin, on 02/14/2021 A1c was 5.6% 6. History of CAD, chronic, not present on admission - continue home asa and statin. 7. Left lower lobe lung mass - outpatient workup, rescheduled biopsy at [facility] on 03/06/21. -noted patient has had a BMI decrease from 30.7 on 11/30/2020 to today's admit 26.3 8. Fatty liver disease possibly cirrhosis, acute on chronic, present on admission -AbD U/S 02/14/21:Liver surface appears somewhat nodular. Increased hepatic echogenicity most which could be due to hepatocellular disease or hepatic steatosis. --patient's Liver enzymes were all mildly elevated with the acception of Alk Phos WNL, bilirubin has elevated very mildly to 1.5 previously had always been WNL, AST 100 elevated from discharge and ALT 91-ordered amylase/lipase/ammonia, FE/TIBC- monitor and evaluate hepatic involvement in encephalopathy Code Status : Full Code Surrogate decision maker: patient's SAMANTHA PCR: Negative MRSA nasal swab of: Positive DVT/VTE prophylaxis: Patient placed on Plavix 75 mg as part of stroke protocol and SCDs Disposition: Admitted under inpatient ICU status as his stay is expected to exceed 2 midnights Scores GCS [place] coma scale eye opening: Spontaneous [place] coma scale verbal response: Orientated [place] coma scale motor response: Obey commands [place] coma scale total score: 15 NIHSS Level of Conciousness: Alert, keenly responsive Ask month/age: Answers both questions correctly. Open/close eyes, close hand: Performs both tasks correctly Best gaze horizontal: Normal Visual cordero: No visual loss Facial palsy: Normal symetrical movement Left arm drift: No drift for full 10 sec Right arm drift: No drift for full 10 sec Left leg drift: No drift for full 5 sec Right leg drift: No drift for full 5 sec Limb ataxia: Absent Sensory on face/arms/legs: Normal, no sensory loss Best language: No aphasia, normal Dysarthria: Normal Extinction or inattention: No abnormality Total NIH Stroke scale score: 0 Wells' Criteria for PE Clinical signs and symptoms of DVT: No PE is #1 Dx or equally likely: No Heart rate > 100: No Immobilization at least 3 days or surg in previous 4 weeks: Yes History of PE or DVT: No Hemoptysis: No Malignancy w/Treatment within 6 months or palliative: No Wells' PE Score total: 1.5 Quality MIPS - Admit I confirm the patient?s Advance Care Plan is present, Code status is documented, Surrogate decision maker is in patient?s record [If Yes, STOP here]: Yes
[2021-02-18 01:35] LABS: COVID19 - ADMIT (NP swab/PCR) Negative (Negative)
--- NOTE | 2021-02-18 02:57 | PC.NURSE ---
Addendum entered by Ynes Guevara R.N. 02/18/21 04:00: 0330- Patient had a short run of accellerated idioventricular rhythm. Patient was sleeping at the time. Will monitor. Original Note: 0200-Patient admitted to room 231. Patient is alert and responding appropriately although delayed at times. Patient wears bilateral hearing aids and his has removed them and placed them in specimen cups at the sink. Patient does respond appropriately when he fully understands what is being asked. No c/o pain. MRSA swab sent per protocol. Patient is high risk for falls, bed alarm is engaged. Telemetry shows NSR/SB with a BBB. CPap machine from home has been checked by Respiratory Therapy and placed on patient. Room air Saturation is 93-94% Will monitor closely.
[2021-02-18 04:56] LABS: Add Manual Diff / Slide Review NO; Basophils Absolute Auto 0 /uL (0-100); Basophils Percent Auto 0.7 % (0-2); Eosinophils Absolute Auto 0 /uL (0-450); Eosinophils Percent Auto 0.4 % (2-4); Hematocrit 39.5 % (41-53); Hemoglobin 13.5 g/dL (13.5-17.5); Lymphocytes Absolute Auto 1400 /uL (1100-4500); Lymphocytes Percent Auto 22.8 % (25-40); Mean Corpuscular HGB Conc 34.3 % (30-36); Mean Corpuscular Hemoglobin 31.3 PG (26-34); Mean Corpuscular Volume 91.4 fL (80-100); Monocytes Absolute Auto 400 /uL (0-900); Monocytes Percent Auto 6.5 % (3-14); Neutrophils Absolute Auto 4300 /uL (1500-7000); Neutrophils Percent Auto 69.6 % (50-75); Platelet Count 84 X10^3/uL (150-400); Red Blood Cell Count 4.32 X10^6/uL (4.5-5.9); Red Cell Distribution Width 14.5 % (11.6-14.8); White Blood Cell Count 6.2 X10^3/uL (4.5-11.0)
[2021-02-18 05:00] LABS: Ammonia (NH3) 41 umol/L (9-30)
[2021-02-18 05:02] LABS: Amylase 188 U/L (30-110); Cholesterol 121 mg/dL (140-199); HDL Cholesterol 48 mg/dL (40-60); LDL Cholesterol Calculated 54 mg/dL (<100); Lipase 323 U/L (23-300); Triglycerides 93 mg/dL (35-150)
[2021-02-18 05:03] LABS: Alanine Aminotransferase 84 IU/L (<50); Albumin 3.9 g/dL (3.5-5.0); Albumin Globulin Ratio 1.1 (1.0-2.8); Alkaline Phosphatase 95 U/L (38-126); Aspartate Aminotransferase 74 IU/L (17-59); BUN Creatinine Ratio 32.7 (6-22); Bilirubin Total 1.2 mg/dL (0.2-1.3); Blood Urea Nitrogen 16 mg/dL (9-20); Carbon Dioxide 27 mmol/L (22-32); Chloride 99 mmol/L (98-107); Estimated Glomerular Filt Rate > 60.0 mL/min (>60); Globulin 3.5 g/dL (1.7-4.1); Glucose 139 mg/dL (80-110); HEMOLYSIS 15 (0-50); Potassium 3.2 mmol/L (3.4-5.1); Sodium 133 mmol/L (137-145); Total Protein 7.4 g/dL (6.3-8.2)
[2021-02-18 05:20] LABS: Iron 98 ug/dL (49-181)
[2021-02-18 05:30] LABS: Total Iron Binding Capacity 343 ug/dL (261-462)
[2021-02-18] MEDS: POTASSIUM CHLORIDE IN WATER 10 MEQ/100 ML PIGGYBACK 100 MEQ IV ×4 (08:48→12:15)
[2021-02-18] MEDS: ASPIRIN EC 325 MG TABLET PO (08:49)
[2021-02-18] MEDS: CLOPIDOGREL 75 MG TABLET PO (08:49)
--- NOTE | 2021-02-18 08:58 | CM.DANOTE ---
DCP: Case received, EMR reviewed and met with patient. Introduced self and role. Was able to obtain information regarding patient's baseline activity status prior to hospitalization. DCP assessment completed with information currently available. Patient is a 70 year old male who admitted early this morning to the care of the hospitalist team. PCP: Dr. Gore. Payer: confirmed: Medicare/[employer]. Patient came to the hospital via private vehicle secondary to having increased confusion. Patient had been recently here at the hospital a couple of days ago for similar symptoms for hyponatremia. Patient holds current diagnosis of acute toxic metabolic encephalopathy, and mild encephalopathy. He may be having echo and MRI today. Patient is also being ruled out for SIADH. Met with patient in his room. He was sitting up in his chair. Alert, but slow to answer. Confirmed that he resides here in [place] with his spouse, Ludy. He mentioned that he has a walker for home use. His primary provider is at [facility], Dr. Gore. P: DCP to continue to follow for any needs. Valerie Richardson RN/[employer]
--- NOTE | 2021-02-18 09:55 | DI.RAD.S_ITS ---
PROCEDURE: XR CHEST 1V INDICATIONS: SOB TECHNIQUE: One view of the chest was acquired. COMPARISON: [facility], CR, XR CHEST 1V, 02/17/2021, 22:32. [facility], CR, XR CHEST 1V, 02/13/2021, 14:17. FINDINGS: Surgical changes and devices: None. Lungs and pleura: Lungs are mildly abnormal with a mild generalized interstitial prominence that has been previously present. This may reflect prior smoking history.. No pleural effusions or pneumothorax. Mediastinum: Mediastinal contours appear normal. Heart size is normal. Bones and chest wall: No suspicious bony lesions. Overlying soft tissues appear unremarkable. IMPRESSION: Generalized interstitial prominence, previously present, which may reflect a prior smoking history. No definite interval worsening. Heart size is not enlarged at this time. Please note that in this clinical circumstance a small degree of pulmonary edema could be superimposed on chronic interstitial prominence and not accurately detected as cardiogenic pulmonary edema. Dictated by: Arthur Guillen M.D. on 02/18/2021 at 11:00 Approved by: Arthur Guillen M.D. on 02/18/2021 at 11:02
--- NOTE | 2021-02-18 09:56 | DI.ECHO.S_ITS ---
[facility] +---------+ [facility] +---------+ : : [address] : : : : [id number] : : : : Phone: [phone] Echocardiogram Report + + :Name: TIMOTEO VASQUEZ Study Date: 02/18/2021 Height: 72 in : :[employer] ReadingLocation: Weight: 194 lb : : Gender: Male BSA: 2.1 m2 : :: 1950 Age: 70 yrs BP: 132/68 mmHg: :Reason For Study: SOB, MSSA BACTEREMIA, ENDOCARDITIS : :Ordering Physician: RAOUL, : :GARY Performed By: Marilyn Ureña : :Referring: GARY SILVEIRA : + + Interpretation Summary The left ventricle is normal in size. Left ventricular systolic function is normal. The ejection fraction is estimated to be 60-65%. There are no obvious focal wall motion abnormalities noted but poor endocardial definition reduces the sensitivity for the detection of such. Diastolic parameters suggest probable normal left ventricular diastolic function and normal filling pressures. The right ventricle is normal in size and function. The right ventricular systolic pressure is estimated to be at least 35 mmHg based on an estimated right atrial pressure of 3 mm Hg. Both atria are normal in size. There is mild mitral regurgitation. There is no other significant valvular heart disease. No obvious visualized evidence of endocarditis. The aortic root is normal size. Procedure: A two-dimensional transthoracic echocardiogram with color flow and Doppler was performed. The study quality was technically difficult. A contrast injection of Definity was performed to improve assessment of LV function. Comparison is made with the echocardiogram of 12/19/2020. The patient was in sinus rhythm with heart rates between 62-71 bpm during the exam. Left Ventricle: The left ventricle is normal in size. Left ventricular wall thickness is at the upper limits of normal. Left ventricular systolic function is normal. The ejection fraction is estimated to be 60-65%. There are no obvious focal wall motion abnormalities noted but poor endocardial definition reduces the sensitivity for the detection of such. Diastolic parameters suggest probable normal left ventricular diastolic function and normal filling pressures. Right Ventricle: The right ventricle is normal in size and function. Atria: Both atria are normal in size. There is no Doppler evidence for an interatrial shunt. Mitral Valve: The mitral valve is normal in structure and function. There is mild mitral regurgitation. Aortic Valve: The aortic valve is trileaflet. There is discrete nodular thickening of the non- coronary cusp. There is no aortic valve stenosis. No aortic regurgitation is present. Tricuspid Valve: The tricuspid valve is normal in structure and function. There is mild tricuspid regurgitation. The right ventricular systolic pressure is estimated to be at least 35 mmHg based on an estimated right atrial pressure of 3 mm Hg. Pulmonic Valve: The pulmonic valve is not well seen, but is grossly normal. There is no pulmonic valvular regurgitation. There is no other significant valvular heart disease. Great Vessels: The aortic root is normal size. The dimensions of the ascending aorta are normal. The IVC is of normal diameter and collapses greater than 50% with a sniff. This suggests a low right atrial pressure of 3 mm Hg. Pericardium/ Pleura There is no pericardial effusion. There is no pleural effusion. MMode/2D Measurements & Calculations LVIDd: 4.7 cm LVOT diam: 2.0 cm LVIDs: 2.9 cm Ao root diam: 3.3 cm FS: 37.6 % asc Aorta Diam: 3.1 cm EPSS: 0.52 cm Ao Arch Diam (Prox Trans): 2.3 cm IVSd: 1.1 cm LVPWd: 1.0 cm LV lyon. diameter/BSA (cm/m^2): 2.2 LV sys. diameter/BSA (cm/m^2): 1.4 LA A2 area: 20.2 cm2 RA long axis: 4.9 cm LA A4 area: 17.2 cm2 RA area: 15.0 cm2 LA length (vol): 4.9 cm RA vol: 38.8 ml LA vol: 60.8 ml RA : 18.4 ml/m2 LA vol index: 28.9 ml/m2 IVC diam: 1.2 cm RVD1 (basal): 3.3 cm TAPSE: 2.3 cm Doppler Measurements & Calculations Ao V2 max: 164.7 cm/sec LVOT Max Mike: 84.4 cm/sec Ao V2 mean: 111.1 cm/sec LV V1 max P.9 mmHg Ao max P.8 mmHg LV V1 VTI: 21.1 cm Ao mean P.7 mmHg LEXII(I,D): 1.8 cm2 Ao V2 VTI: 38.9 cm LXEII(V,D): 1.7 cm2 sev ratio: 0.54 LEXII indexed to BSA (cm^2/m^2): 0.85 MV E max mike: 93.9 cm/sec TR max mike: 284.9 cm/sec MV A max mike: 91.3 cm/sec TR max P.5 mmHg MV E/A: 1.0 PA V2 max: 80.9 cm/sec Med Peak E' Mike: 8.0 cm/sec PA V2 mean: 54.6 cm/sec E/E' med: 11.8 PA mean P.4 mmHg Lat Peak E' Mike: 8.0 cm/sec PA pr(Accel): 36.2 mmHg E/E' lat: 11.7 E/e' average: 11.8 MV dec time: 0.25 sec SV(LVOT): 69.7 ml Reading Physician:02:20 PM
[2021-02-18 11:17] LABS: NT-proBNP (BNP-Adult 18+) 334 pg/mL (<125); Troponin I 0.015 ng/mL (0.01-0.034)
[2021-02-18] MEDS: INSULIN LISPRO 100 UNIT/ML 3ML VIAL SUBCUT ×2 (12:15→18:22)
[2021-02-18 13:52] LABS: Blood Urea Nitrogen 18 mg/dL (9-20); Calcium 9.3 mg/dL (8.4-10.2); Carbon Dioxide 25 mmol/L (22-32); Chloride 98 mmol/L (98-107); Estimated Glomerular Filt Rate > 60.0 mL/min (>60); Glucose 205 mg/dL (80-110); HEMOLYSIS 17 (0-50); Sodium 131 mmol/L (137-145)
--- NOTE | 2021-02-18 17:35 | PC.NURSE ---
PM shift Pt is A/o x3, SQUAXIN. Neuro exam WNL, denies any pain, no complaints, slight recall of event this AM, they did quite a bit of testing Pt moved to room 209 @1700.
[2021-02-18 20:09] LABS: Troponin I 0.013 ng/mL (0.01-0.034)
[2021-02-18] MEDS: SODIUM CHLORIDE 0.9% FLUSH 10 ML IV (21:31)
[2021-02-18] MEDS: ATORVASTATIN 20 MG TABLET 80 MG PO (21:36)
[2021-02-18 23:16] LABS: BUN Creatinine Ratio 36.4 (6-22); Blood Urea Nitrogen 20 mg/dL (9-20); Calcium 9.1 mg/dL (8.4-10.2); Carbon Dioxide 27 mmol/L (22-32); Chloride 99 mmol/L (98-107); Estimated Glomerular Filt Rate > 60.0 mL/min (>60); Glucose 156 mg/dL (80-110); HEMOLYSIS < 15 (0-50); Potassium 3.7 mmol/L (3.4-5.1); Sodium 133 mmol/L (137-145)
[2021-02-19] VITALS (14 sets, daily range): BP systolic 104–147; BP diastolic 68–78; PULSE 64–86; RESP 16–22; TEMP 36.3–36.8; O2SAT 92–94
[2021-02-19 06:12] LABS: Add Manual Diff / Slide Review NO; Basophils Absolute Auto 0 /uL (0-100); Basophils Percent Auto 0.6 % (0-2); Eosinophils Absolute Auto 100 /uL (0-450); Eosinophils Percent Auto 0.8 % (2-4); Lymphocytes Absolute Auto 1400 /uL (1100-4500); Lymphocytes Percent Auto 21.5 % (25-40); Mean Corpuscular HGB Conc 34.9 % (30-36); Mean Corpuscular Hemoglobin 31.7 PG (26-34); Mean Corpuscular Volume 90.9 fL (80-100); Monocytes Absolute Auto 400 /uL (0-900); Monocytes Percent Auto 6.3 % (3-14); Neutrophils Absolute Auto 4500 /uL (1500-7000); Neutrophils Percent Auto 70.8 % (50-75); Platelet Count 77 X10^3/uL (150-400); Red Cell Distribution Width 14.5 % (11.6-14.8); White Blood Cell Count 6.4 X10^3/uL (4.5-11.0)
[2021-02-19 06:33] LABS: Alanine Aminotransferase 80 IU/L (<50); Albumin 3.9 g/dL (3.5-5.0); Albumin Globulin Ratio 1.1 (1.0-2.8); Alkaline Phosphatase 95 U/L (38-126); Aspartate Aminotransferase 72 IU/L (17-59); Bilirubin Total 1.5 mg/dL (0.2-1.3); Blood Urea Nitrogen 18 mg/dL (9-20); Carbon Dioxide 27 mmol/L (22-32); Chloride 97 mmol/L (98-107); Estimated Glomerular Filt Rate > 60.0 mL/min (>60); Globulin 3.5 g/dL (1.7-4.1); Glucose 138 mg/dL (80-110); HEMOLYSIS < 15 (0-50); Potassium 3.4 mmol/L (3.4-5.1); Sodium 132 mmol/L (137-145); Total Protein 7.4 g/dL (6.3-8.2)
[2021-02-19] MEDS: CLOPIDOGREL 75 MG TABLET PO (08:22)
[2021-02-19] MEDS: ASPIRIN EC 325 MG TABLET PO (08:22)
[2021-02-19] MEDS: SODIUM CHLORIDE 0.9% FLUSH 10 ML IV ×2 (08:23→20:53)
--- NOTE | 2021-02-19 09:19 | PC.NURSE ---
Patient alert and oriented to self and situation. Ate breakfast independently. During AM assessment pt endorsed confusion from low oxygen when asked if he's feeling SOB patient denied, observed RR at 18, normal depth, 94% on RA, lungs diminished, CTA. I asked if patient meant low sodium and he said yes, that's what I meant. Patient appears to have difficultly finding words. Endorses tingling in bilateral hands. Denies pain. Tele on. Pulses equal and palpable. Patient up to restroom with SBA and FWW. Patient endorses strength returning but still a bit of weakness in BLE. SCD's on bilaterally. Call light in reach. Patient remains on contact precautions. Patients Ludy bedside at 0915.
[2021-02-19] MEDS: INSULIN LISPRO 100 UNIT/ML 3ML VIAL SUBCUT ×3 (13:31→20:50)
--- NOTE | 2021-02-19 14:49 | PM.PN.1 ---
Subjective Subjective Date Patient Seen: 02/19/21 Time Patient Seen: 08:49 Interval history: Today he is feeling improved. He is having word finding difficulty, but less than yesterday. He denies shortness of breath, and it appears yesterday he was trying to state that he was having difficulty with speech not with shortness of breath. Exam Vital Signs (past 8 hours): - 02/19/21 07:48 02/19/21 08:00 02/19/21 10:06 Temperature 97.3 F L Pulse Rate 81 64 64 Respiratory Rate 16 20 16 Blood Pressure 139/78 Pulse Oximetry 93 94 94 02/19/21 11:00 02/19/21 11:55 Temperature 97.4 F L Pulse Rate 72 Respiratory Rate 18 Blood Pressure 142/68 H Pulse Oximetry 94 94 Oxygen Delivery Method Room Air Oxygen Flow Rate 0 Narrative Exam Narrative: General: Patient is a well-developed, well-nourished in no distress at this time Lungs: clear bilaterally with no wheezes, rhonchi, rales Cardio: regular rate and rhythm without murmur, rubs, or gallops, Abdomen: Soft nontender, negative for organomegaly, or masses. Normal bowel sounds Neuro: Alert and orientated x3, struggles with finding the correct words to verbally express himself. Strength is +5/5 in all extremities, sensation to touch intact, no gross deficits noted of cranial nerves. Psych: pleasant, cooperative. Objective Labs Result Diagrams: 02/19/21 05:40 02/19/21 05:40 Labs: Laboratory Results - last 24 hr 02/18/21 02/18/21 02/19/21 19:40 23:00 05:40 WBC 6.4 RBC 4.40 L Hgb 14.0 Hct 40.0 L MCV 90.9 MCH 31.7 MCHC 34.9 RDW 14.5 Plt Count 77 L Neut % (Auto) 70.8 Lymph % (Auto) 21.5 L [place] % (Auto) 6.3 Eos % (Auto) 0.8 L Baso % (Auto) 0.6 Neut # (Auto) 4500 Lymph # (Auto) 1400 [place] # (Auto) 400 Eos # (Auto) 100 Baso # (Auto) 0 Sodium 133 L Potassium 3.7 Chloride 99 Carbon Dioxide 27 BUN 20 Creatinine 0.55 L Estimated GFR > 60.0 BUN/Creatinine Ratio 36.4 H Glucose 156 H Calcium 9.1 Total Bilirubin AST ALT Alkaline Phosphatase Troponin I 0.013 Total Protein Albumin Globulin Albumin/Globulin Ratio 02/19/21 05:40 WBC RBC Hgb Hct MCV MCH MCHC RDW Plt Count Neut % (Auto) Lymph % (Auto) [place] % (Auto) Eos % (Auto) Baso % (Auto) Neut # (Auto) Lymph # (Auto) [place] # (Auto) Eos # (Auto) Baso # (Auto) Sodium 132 L Potassium 3.4 Chloride 97 L Carbon Dioxide 27 BUN 18 Creatinine 0.50 L Estimated GFR > 60.0 BUN/Creatinine Ratio 36.0 H Glucose 138 H Calcium 9.0 Total Bilirubin 1.5 H AST 72 H ALT 80 H Alkaline Phosphatase 95 Troponin I Total Protein 7.4 Albumin 3.9 Globulin 3.5 Albumin/Globulin Ratio 1.1 [facility] Medical History (Updated 02/18/21 @ 04:17 [facility] Carotid bruit (08/06/11) Congestion of both ears Diaphragmatic hernia (08/06/11) Diverticulosis (08/06/11) Emphysema lung Insomnia, persistent Mass of lower lobe of left lung Muscle strain of left lower leg Obstructive sleep apnea of adult (~08/06/11) Snoring Surgical History History of angioplasty History of angioplasty Status post arthroscopy Family History Brother Heart disease High cholesterol Brother Age: 76 High cholesterol Father Heart disease Diabetes mellitus High cholesterol Mother Diabetes mellitus Heart disease High cholesterol Sister Age: 67 High cholesterol Social History household members: spouse and other Smoking Status: Former smoker Tobacco: How many years used: 44 alcohol intake: current substance use type: former substance user and marijuana Assessment & Plan Assessment & Plan narrative: 70M with PMH CAD status post multiple stents, Crohn's disease, emphysema, left lower lobe mass, Fatty Liver, non insulin-dependent type 2 diabetic who presented to the emergency room with worsening confusion since being discharged 02/17/2021 after correction of hyponatremia with presenting metabolic encephalopathy (admit 02/13-02/16/21) 1. Acute Toxic Metabolic encephalopathy, acute, present on admission -unsure as to the cause at this time, possibly secondary to hyponatremia correction (ODS), thought rate was corrected appropriately in hospital -MRI showed no stroke or other acute abnormality, no demylenation -AM cortisol now low -Possible SIADH secondary to his lung mass in addition to chronic steroid use. Appears euvolemic at this time. -patient had an decreased TSH of 0.24, FT4 1.17 on 02/14/2021-will repeat TSH and free T4 to r/o thyroid. 2. 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 Patient's sodium correction was in keeping with current guidelines. -serum sodium of 135 on admission. His urine sodium is also elevated at 148. He had originally presented with a sodium of 118, urine sodium 118 with the same symptoms. His sodium correction was done at a rate of 5 points/24 hours, 8 points in total/48 hours, and 12 points/72 hours, for total of 19 point correction over 4 days. Patient's sodium correction was not above 8 on any given day. It is unclear as to why the patient is similarly confused and disorientated when his sodium is not as low comparatively. However he is improving -have started a fluid restriction diet: 800cc/day, will recheck sodium in the morning. -PT /OT 3. Crohn's disease, chronic, not present on admission -continue home medications of mesalamine and budesonide when dosing known. both non-formulary will have to have family bring in. 4. Emphysema, chronic, not present on admission -patient does not appear to be on any inhalers. No respiratory symptoms at this time, continue to monitor. Emphysema was seen on his recent CT that revealed his left lower lobe mass. 5. Non insulin-dependent type 2 diabetes, acute on chronic, present on admission, uncontrolled -as evidence by a glucose of 143 on admit, - start sliding scale patient reports good control on low dose metformin. - hold metformin, on 02/14/2021 A1c was 5.6% 6. History of CAD, chronic, not present on admission - continue home asa and statin. 7. Left lower lobe lung mass - outpatient workup, rescheduled biopsy at [facility] on 03/06/21. -noted patient has had a BMI decrease from 30.7 on 11/30/2020 to today's admit 26.3 8. Fatty liver disease possibly cirrhosis, acute on chronic, present on admission -AbD U/S 02/14/21:Liver surface appears somewhat nodular. Increased hepatic echogenicity most which could be due to hepatocellular disease or hepatic steatosis. -patient's Liver enzymes were all mildly elevated with the acception of Alk Phos WNL, bilirubin has elevated very mildly to 1.5 previously had always been WNL, AST 100 elevated from discharge and ALT 91 -think less likely hepatic encephalopathy Code Status : Full Code Surrogate decision maker: patient's COVID PCR: Negative MRSA nasal swab of: Positive DVT/VTE prophylaxis: Patient placed on Plavix 75 mg as part of stroke protocol and SCDs Disposition: Admitted under inpatient ICU status as his stay is expected to exceed 2 midnigh Quality VTE Deep Vein Thrombosis/Pulmonary Embolism Present on Admission: No
[2021-02-19 20:06] LABS: BUN Creatinine Ratio 41.5 (6-22); Blood Urea Nitrogen 22 mg/dL (9-20); Calcium 9.1 mg/dL (8.4-10.2); Carbon Dioxide 25 mmol/L (22-32); Chloride 96 mmol/L (98-107); Estimated Glomerular Filt Rate > 60.0 mL/min (>60); Glucose 245 mg/dL (80-110); HEMOLYSIS 19 (0-50); Potassium 3.6 mmol/L (3.4-5.1); Sodium 129 mmol/L (137-145)
[2021-02-19] MEDS: ATORVASTATIN 20 MG TABLET 80 MG PO (20:49)
[2021-02-19] MEDS: LACTULOSE 20 GM/30 ML SOLUTION 30 GM PO (20:50)
[2021-02-20] MEDS: LACTULOSE 20 GM/30 ML SOLUTION 30 GM PO ×3 (00:26→06:33)
[2021-02-20] MEDS: LORazepam 1 MG TABLET PO (00:26)
[2021-02-20 00:30] VITALS: BP 120/82; PULSE 81; RESP 16; TEMP 36.8; O2SAT 93
[2021-02-20 03:00] VITALS: O2SAT 93
--- NOTE | 2021-02-20 03:44 | PC.NURSE ---
IV insertion attempt x2. Both attempts failed, patient tolerated well.
[2021-02-20 04:00] VITALS: BP 109/74; PULSE 91; RESP 16; TEMP 36.4; O2SAT 93
--- NOTE | 2021-02-20 04:00 | PC.NURSE ---
22 Gauge IV inserted by REBECCA Barboza RN in R forearm. Patient tolerated well.
[2021-02-20 06:02] LABS: Add Manual Diff / Slide Review NO; Ammonia (NH3) 30 umol/L (9-30); Basophils Absolute Auto 100 /uL (0-100); Eosinophils Absolute Auto 0 /uL (0-450); Eosinophils Percent Auto 0.5 % (2-4); Hematocrit 39.8 % (41-53); Hemoglobin 13.9 g/dL (13.5-17.5); Lymphocytes Absolute Auto 1500 /uL (1100-4500); Mean Corpuscular Hemoglobin 31.8 PG (26-34); Mean Corpuscular Volume 90.9 fL (80-100); Monocytes Absolute Auto 500 /uL (0-900); Monocytes Percent Auto 6.6 % (3-14); Neutrophils Absolute Auto 4900 /uL (1500-7000); Neutrophils Percent Auto 69.9 % (50-75); Platelet Count 76 X10^3/uL (150-400); Red Blood Cell Count 4.37 X10^6/uL (4.5-5.9); Red Cell Distribution Width 14.4 % (11.6-14.8)
[2021-02-20 06:08] LABS: Alanine Aminotransferase 128 IU/L (<50); Albumin 3.9 g/dL (3.5-5.0); Albumin Globulin Ratio 1.1 (1.0-2.8); Alkaline Phosphatase 104 U/L (38-126); Aspartate Aminotransferase 133 IU/L (17-59); BUN Creatinine Ratio 31.4 (6-22); Bilirubin Total 1.6 mg/dL (0.2-1.3); Blood Urea Nitrogen 16 mg/dL (9-20); Calcium 8.9 mg/dL (8.4-10.2); Carbon Dioxide 27 mmol/L (22-32); Chloride 99 mmol/L (98-107); Estimated Glomerular Filt Rate > 60.0 mL/min (>60); Globulin 3.4 g/dL (1.7-4.1); Glucose 177 mg/dL (80-110); HEMOLYSIS < 15 (0-50); Potassium 3.4 mmol/L (3.4-5.1); Sodium 134 mmol/L (137-145); Total Protein 7.3 g/dL (6.3-8.2)
[2021-02-20 08:00] VITALS: BP 152/81; PULSE 85; RESP 18; TEMP 36.4; O2SAT 93
[2021-02-20 08:04] VITALS: PULSE 76; RESP 16; O2SAT 96
[2021-02-20] MEDS: INSULIN LISPRO 100 UNIT/ML 3ML VIAL SUBCUT (08:06)
[2021-02-20] MEDS: SODIUM CHLORIDE 0.9% FLUSH 10 ML IV (08:07)
--- NOTE | 2021-02-20 09:14 | PT.IIE ---
Current Diagnoses Syndrome of inappropriate secretion of antidiuretic hormone (02/18/21) Surgical History (Last Reviewed 02/18/21 @ 04:18 by GURPREET Brito) History of angioplasty History of angioplasty Status post arthroscopy Medical History (Last Updated 02/18/21 @ 04:17 by GURPREET Brito) Carotid bruit (08/06/11) Congestion of both ears Diaphragmatic hernia (08/06/11) Diverticulosis (08/06/11) Emphysema lung Insomnia, persistent Mass of lower lobe of left lung Muscle strain of left lower leg Obstructive sleep apnea of adult (~08/06/11) Snoring Physical Therapy Inpatient Evaluation/Re-Eval M1 PT/OT-IP Prior Functional Status Start: 02/19/21 15:20 Freq: NEEDED Status: Discharge Protocol: Document 02/20/21 09:14 AW (Rec: 02/20/21 12:21 AW [id number]) Medical Review Prior Functional Status Medical History Reviewed Yes Communication WNL Mobility and Gait Pt is independent without assistive device. He and his walk their dogs daily. Activities of Daily Living and IADL's Indpendent with all ADL and IADL needs. Pt drives, shops, and cooks. Prior Functional Level (Other details) Pt was admitted wt hyponatremia 02/13-02/16. He was readmitted with acute toxic metabolic encephalopathy secondary to hyponatremia. Na+ has improved from 129 to 134. Social History Household Members spouse,other Living Arrangements House Number of Floors (Floors) One Floor Number of Stairs To Enter/Railing? 3-4 GIN with R rail ascending and a wall on the left side. Home Environment Standard Height Toilet,Walk in Shower Home Equipment Front Wheel Walker,Four Wheel Walker,Straight Cane,Shower Seat without Backrest,Hand Held Shower Employment Status Retired Additional Social History Comment Pt has an adjustable bed. He lives in [place] with his supportive , Ludy. M2 PT-IP Current Condition Start: 02/19/21 15:20 Freq: NEEDED Status: Discharge Protocol: Document 02/20/21 09:14 AW (Rec: 02/20/21 12:21 AW [id number]) Physical Therapy Current Condition Current Condition Evaluation Date 02/20/21 Treatment Diagnosis acute metabolic encephalopathy ; difficulty in walking Onset Date 02/13/21 M3 PT-IP Subjective Start: 02/19/21 15:20 Freq: NEEDED Status: Discharge Protocol: Document 02/20/21 09:14 AW (Rec: 02/20/21 12:21 AW [id number]) Subjective Physical Therapy Visit Type Type Initial Evaluation Visit Start Time 08:52 Visit Stop Time 09:14 Total Visit Minutes 22 Number of [employer] NET DEVELOPER Visits 0 Physical Therapy Visit Comments Patient Comments Pt is willing to participate with PT Patient Goals Pt would like to regain enough strength to confidently walk his dogs. Therapy Pain Assessment Pain When Pain Assessed During Mobility Pain Present Pain Present Denied Pain M4 PT-IP Mobility and Gait Start: 02/19/21 15:20 Freq: NEEDED Status: Discharge Protocol: Document 02/20/21 09:14 AW (Rec: 02/20/21 12:21 AW [id number]) PT-Bed Mobility Assessment Supine to Sit Supine to Sit Independent Sit to Supine Sit to Supine Independent PT-Transfer Assessment Sit to and From Stand Sit to and from Stand Standby Assistance Equipment Transfer Assistive Device Gait Belt,Front Wheeled Walker Orthotic/Prosthetic Devices or Brace: No Transfers Transfer Destination Bed,Chair,Toilet Transfer Technique Stand Step Pivot Transfer Ability Level of Assist Standby Assistance Comments Mobility Comments Pt was on the toilet as PT arrived. PT took over from nursing. Pt able to stand from the toilet and walk to the chair with FWW SBA. Sitting balance was good. He kerwin from the chair and ambulated in the halls 300 feet with FWW SBA. Gait was also evaluated without AD and pt was notably more unsteady requiring CGA. On return to the room, pt demonstrated independent bed mobility and then transferred back to sitting on the chair. He was left with call light and tray table in reach. Gait Assessment Gait Gait Assistance Required: Standby Assistance,Contact Guard Assist Distance (Feet) 300 Assistive Devices Assistive Device None,Gait Belt,Front Wheeled Walker Orthotic/Prosthetic Devices or Brace: No Gait Deviations General Gait Pattern Decreased Stride Length, Decreased Feet Clearance, Flexed Trunk Factors Limiting Gait Function Factors Limiting Gait Function Decreased Activity Tolerance, Decreased Strength,Poor Balance Comments Gait Comments SBA with FWW. CGA without AD. Stair Climbing Assessment Evaluation Level of Assist On Stairs Standby Assistance Devices Stair Climbing Assistive Devices Right Railing Technique/Endurance Stair Climbing Direction Ascend and Descend Stair Climbing Technique Step Over Step Number of Steps Climbed 3 Query Text: Stair Climbing Set # Repetitions (reps) 2 PT-Balance Assessment Sitting Balance and Reactions Static Sitting Balance Ability Normal Dynamic Sitting Balance Ability Normal Standing Balance and Reactions Static Standing Balance Ability Good Dynamic Standing Balance Ability Fair Device Used FWW Balance Tests Romberg <10 sec EO; <3 sec EC Tandem Standing unable without assist. M5 PT-IP Objective Assessments Start: 02/19/21 15:20 Freq: NEEDED Status: Discharge Protocol: Document 02/20/21 09:14 AW (Rec: 02/20/21 12:21 AW [id number]) Orientation Orientation/Cognition Level of Alertness Alert Orientation Name,Day of Week,Place, Situation Language Function Ability No Deficits Noted,Hard of Hearing Safety Awareness Understands Safety Issues Memory Description No Deficits Noted Gross Range of Motion Lower Extremity ROM Assessment Within Functional Limits Strength Lower Extremity Strength Assessment Within Functional Limits Comments Strength Comments BLE grossly 5/5 on testing but easily fatigued in gait. Sensation Assessment Sensation Gross Sensation Right LE Impaired,Left LE Impaired Light Touch Impaired Proprioception (Position) Impaired Comments Sensation Comments Peripheral neuropathy affects bilateral feet with distal more affected than proximal. Muscle Tone Muscle Tone WNL Yes M6 PT-IP Treatment Start: 02/19/21 15:20 Freq: NEEDED Status: Discharge Protocol: Document 02/20/21 09:14 AW (Rec: 02/20/21 12:21 AW [id number]) Physical Therapy Treatment Education Education Provided Safety Other Treatments Other Treatment Performed Educated pt on recommendation for FWW use at this time and pt agreed. M7 PT-IP Assessment and Plan Start: 02/19/21 15:20 Freq: NEEDED Status: Discharge Protocol: Document 02/20/21 09:14 AW (Rec: 02/20/21 12:21 AW [id number]) PT Summary Assessment and Plan Potential Rehabilitation Potential Good Status of Condition at Evaluation Stable Summary Impairments Strength,Balance,Sensation, Gait Assessment Summary Sage is a 70 to man admitted with acute toxic metabolic encephalopathy secondary to hyponatremia. His cognition on evaluation was clear and memory was good. Pt is independent in all regards at baseline. On evaluation, he completed all mobility indpendent or SBA with FWW but did need CGA due to increased unsteadiness without AD. Pt agrees to use of FWW at this time. Pt will be safe for discharge home with spouse assist once medically stable. Goals Bed Mobility Goal Independent Transfer Goal Independent Gait Goal Independent Gait Distance 300 Other Goals - up/down 4 steps with R rail IND Days to Meet Goals 2 Frequency of Treatment Frequency Of Treatment Once a Day Treatment Plan Physical Therapy Treatment Plan Bed Mobility Training,Transfer Training,Gait Training, Therapeutic Exercise,Balance Retraining,Discharge Planning, Hot or Cold Pack,Neuromuscular Re-ed,Coordination Retraining ,Manual Therapy Recommendations To Nursing Amount of Assist Needed Standby Assistance Discharge Recommendations PT Discharge Recommendations Home,Home with Assistance Transportation Needs at Discharge Private Vehicle
[2021-02-20] MEDS: ASPIRIN EC 325 MG TABLET PO (09:24)
[2021-02-20] MEDS: CLOPIDOGREL 75 MG TABLET PO (09:24)
--- NOTE | 2021-02-20 09:25 | PC.NURSE ---
Provider made aware of Plt coun:76, MD okayed Plavix and ASA 325mg this am.
--- NOTE | 2021-02-20 11:01 | CM.DPC ---
DCP Discharge Home Per MD, pt is medically stable to d/c home today with spouse and no identified barriers to discharge. PT completed eval today and pt able to safely ambulate the halls and recommending safe d/c home with spouse assist. Spouse is bedside and able to provide transport home today. Pt signed initial Medicare Message yesterday and therefore no further IMM signature needed prior to d/c home today but SW provided copy in pt's discharge packet. Plan: Patient to d/c home via spouse POV today and no further SW needs at this time. ADRIANNE Ramirez
--- NOTE | 2021-02-20 11:55 | PC.NURSE ---
DI given to pt and spouse, discussed- medications, f/u appts, medications, diet, s/s of stroke, worsening symptoms, reasons to seek medical attention. All questions answered. IV removed, intact, tolerated well. Tele removed, CLASSIFICATION INSPECTOR informed. Pt dressed and packed belongings independently. Pt left via w/c accompanied by and BEHAVIORAL INTERVENTIONIST to POV.
--- NOTE | 2021-02-20 15:28 | PM.DS.1 ---
History of Present Illness History of Present Illness Chief complaint: CONFUSION SODIUM LEVELS LOW Narrative: Per Allyn Donte: Patient is a 70-year-old male with history of coronary artery disease (multiple stents), Crohn's disease, COPD, type 2 diabetes with recent hospitalization for confusion secondary to hyponatremia returns with family and concern that the symptoms are back. He had been discharged yesterday and over the course of the day today he has become slowly, and increasingly confused again. He has had no falls, traumas or injury. He denies any chest pain or shortness of breath. He has no abdominal pain or nausea or vomiting. He has had no fever or chills. Patient has a and had been scheduled for a biopsy at [facility] but that was delayed until March 06, 2021. His daughter states that he was fine yesterday but today began to rapidly change. Daughter denies ingestion of alcohol, medications, fall, injury, or trauma. Patient is unable to assist in HPI or ROS as he is visibly frustrated by his inability to find the words to answer questions nor is he able to process the questions appropriately. At 1 point I asked the patient if he was in any pain and the patient simply repeated the question back to me as if trying to process the meaning of the question. Patient appears in no distress, and is resting quietly. His daughter does advise that his affect is flatand a change from his baseline,normally the patient is a much more positive energetic individual. She also states that he is normally far more engaged and aware. Patient was previously admitted on 02/13/2021 for metabolic encephalopathy in relation to hyponatremia with a sodium level of 118. Patient's sodium was corrected over a total of 4 days for total of 19 points ending in a sodium level of 135 on discharge at which time the patient's encephalopathy had resolved. On admit today patient's blood pressure is mildly elevated at 163/82, in the ED patient was SOB and unable to sustain an O2 saturation above 90% on room air was subsequently placed on 2L/NC, currently has an O2 saturation of 93%. Patient presents with mild hyponatremia of 135 today creatinine 0.54 improved from discharge 0.60, patient's urine sodium on 02/13/2021 was 118, today urine sodium 148. Patient's liver enzymes were mildly elevated today over previous hospitalization bilirubin 1.5, AST 100, ALT 91, platelets were also slightly decreased at 105 patient's CBC mostly unremarkable. Patient's head CT was normal. Patient being admitted for acute toxic metabolic encephalopathy with mild symptomatic hyponatremia, patient is at risk for osmotic demyelination syndrome. Patient admitted for observation to the ICU. Discharge Providers Provider Date of admission: 02/18/21 00:54 Discharge Date: 02/20/21 Primary care physician: Antonio Gore DO Consults: 02/19/21 09:47 Consult to Physical Therapy Evaluate & Treat Comment: Physician Instructions: Evaluate and Treat Discharge provider: Kuldip Cox MD Summary Hospital Course Discharge Diagnosis: 1. Metabolic encephalopathy, acute probable Hepatic encephalopathy 2. Mild hyponatremia, consistent with SIADH 3. Crohn's disease 4. Probable COPD, chronic 5. Type 2 Diabetes 6. CAD s/p stents 7. Left lower lung mass 8. Fatty liver, probable cirhosis 9. Thrombocytopenia 10. Mild transaminitis 11. 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 The prior etiology was severe hyponatremia secondary to SIADH. This was thought possibly secondary to his known left lung mass. After discharge he became confused again. Return to the hospital showed sodium levels consistently in the low 130s. He slowly improved in symptoms. He did have MRI which showed no stroke, mass, or any other acute process. He had no evidence of infection. He was noted to have very mildly elevated ammonia levels and was given lactulose and his mental status improved. He has known fatty liver and it is possible he has no developed cirrhosis as evidence by nodular liver, mildly elevated bilirubin, and thrombocytopenia. He was discharged with lactulose to take daily for now. He is recommended to continue on fluid restriction, and take plenty of salt. He has plans to follow up this week with is PCP who can continue close following of his sodium. He is scheduled to get his lung mass biopsied. Exam Vital Signs (past 8 hours): - 02/20/21 08:00 02/20/21 08:04 Temperature 97.6 F Pulse Rate 85 76 Respiratory Rate 18 16 Blood Pressure 152/81 H Pulse Oximetry 93 96 Oxygen Delivery Method Room Air Oxygen Flow Rate 16 Narrative Exam Narrative: General: Patient is a well-developed, well-nourished in no distress at this time Lungs: clear bilaterally with no wheezes, rhonchi, rales Cardio: regular rate and rhythm without murmur, rubs, or gallops, Abdomen: Soft nontender, negative for organomegaly, or masses. Normal bowel sounds Neuro: Alert and orientated x3, speech improved. Strength is +5/5 in all extremities, sensation to touch intact, no gross deficits noted of cranial nerves. Psych: pleasant, cooperative. Objective Labs Result Diagrams: 02/20/21 05:45 02/20/21 05:45 Labs: Laboratory Results - last 24 hr 02/19/21 02/20/21 02/20/21 19:30 05:45 05:45 WBC 7.0 RBC 4.37 L Hgb 13.9 Hct 39.8 L MCV 90.9 MCH 31.8 MCHC 35.0 RDW 14.4 Plt Count 76 L Neut % (Auto) 69.9 Lymph % (Auto) 22.0 L Band[place] % (Auto) 6.6 Eos % (Auto) 0.5 L Baso % (Auto) 1.0 Neut # (Auto) 4900 Lymph # (Auto) 1500 Band[place] # (Auto) 500 Eos # (Auto) 0 Baso # (Auto) 100 Sodium 129 L Potassium 3.6 Chloride 96 L Carbon Dioxide 25 BUN 22 H Creatinine 0.53 L Estimated GFR > 60.0 BUN/Creatinine Ratio 41.5 H Glucose 245 H D Calcium 9.1 Total Bilirubin AST ALT Alkaline Phosphatase Ammonia 30 Total Protein Albumin Globulin Albumin/Globulin Ratio 02/20/21 05:45 WBC RBC Hgb Hct MCV MCH MCHC RDW Plt Count Neut % (Auto) Lymph % (Auto) [place] % (Auto) Eos % (Auto) Baso % (Auto) Neut # (Auto) Lymph # (Auto) [place] # (Auto) Eos # (Auto) Baso # (Auto) Sodium 134 L Potassium 3.4 Chloride 99 Carbon Dioxide 27 BUN 16 Creatinine 0.51 L Estimated GFR > 60.0 BUN/Creatinine Ratio 31.4 H Glucose 177 H Calcium 8.9 Total Bilirubin 1.6 H AST 133 H ALT 128 H Alkaline Phosphatase 104 Ammonia Total Protein 7.3 Albumin 3.9 Globulin 3.4 Albumin/Globulin Ratio 1.1 [facility] Medical History (Updated 02/18/21 @ 04:17 by GURPREET Brito) Carotid bruit (08/06/11) Congestion of both ears Diaphragmatic hernia (08/06/11) Diverticulosis (08/06/11) Emphysema lung Insomnia, persistent Mass of lower lobe of left lung Muscle strain of left lower leg Obstructive sleep apnea of adult (~08/06/11) Snoring Surgical History History of angioplasty History of angioplasty Status post arthroscopy Family History Brother Heart disease High cholesterol Brother Age: 76 High cholesterol Father Heart disease Diabetes mellitus High cholesterol Mother Diabetes mellitus Heart disease High cholesterol Sister Age: 67 High cholesterol Social History household members: spouse and other Smoking Status: Former smoker Tobacco: How many years used: 44 alcohol intake: current substance use type: former substance user and marijuana Discharge Plan Discharge Plan Patient Disposition: Home Provider Discharge Comment: Mr. Llanes came in with confusion. He had previously had a low sodium. This admission it was improved. He had an MRI done that showed no stroke. He has a history of fatty liver, and imaging and labs show possible cirrhosis. He also had a mildly elevated ammonia. He was given lactulose and his confusion improved. He will be sent home with daily lactulose, and should follow up with his primary care doctor to follow his sodium levels and monitor if he needs to stay on lactulose. He was on a 1.5L fluid restriction in the hospital and did well. He should add additional salt to foods to keep his sodium level normal. Discharge orders & Medications Prescriptions: New lactulose 20 gram/30 mL solution 20 g PO DAILY Qty: 900 RF: 0 Continued metformin 500 mg tablet extended release 24 hr 500 mg PO BID 30 Days Qty: 180 RF: 2 multivitamin [Multiple Vitamins] tablet 1 tab PO DAILY RF: 0 aspirin 81 mg tablet,delayed release (DR/EC) 81 mg PO DAILY RF: 0 atorvastatin [Lipitor] 80 mg tablet 80 mg PO Q DAY Qty: 90 RF: 3 ezetimibe [Zetia] 10 mg tablet 10 mg PO DAILY Qty: 90 RF: 3 pantoprazole [Protonix] 20 mg tablet,delayed release (DR/EC) 20 mg PO QDAY Qty: 90 RF: 3 diphenhydramine-acetaminophen [Tylenol PM Extra Strength] 25-500 mg tablet 2 tab PO BEDTIME PRN (Reason: Sleep) RF: 0 budesonide 3 mg capsule,delayed,extend.release 6 mg PO BID RF: 0 mesalamine 1.2 gram tablet,delayed release (DR/EC) 2.4 g PO BID RF: 0 vitamin B complex [B Complex-Vitamin B12] Tablet 1 tab PO DAILY RF: 0 calcium carbonate-vitamin D3 [Calcium 600 with Vitamin D3] 600 mg(1,500mg) -500 unit capsule 1 cap PO DAILY RF: 0 Follow up/Referrals: Antonio Gore DO [Primary Care Provider] - Diet/Activity/Treatments Diet: Regular Diet comment: 1.5 liter fluid restriction Visit Report/Discharge Packet Instructions: DI for Hyponatremia, Hyponatremia-Adult, Lactulose, How to Restrict Fluids Discharge Data Primary Care Provider: Antonio Gore Quality VTE Deep Vein Thrombosis/Pulmonary Embolism Present on Admission: No MIPS - DC The patient has current or prior documentation of left ventricular ejection fraction (LVEF) less than 40%, or moderate or severely depressed left ventricular systolic function.: No
[2021-02-20 16:10] LABS: Osmolality Urine 854 mOsmol/kg (.)
[2021-02-20 16:10] LABS: Osmolality, Serum 286 mOsmol/kg (280-301)
== END 2021-02-20 11:57 | disposition home or self-care (01) | DRG 442 ==
LOC: ED 02-18 00:21 → ICU 02-18 10:27 → AC 02-19 08:10 → ICU 02-19 12:41
PROVIDERS: Internal Medicine; Admitting Provider Nurse Practitioner Family; Emergency Provider Emergency Medicine; PCP Family Medicine; Referring Provider Emergency Medicine; Visit Provider Nurse Practitioner Family
DX: K72.90 Hepatic failure, unspecified without coma (principal); E22.2 Syndrome of inappropriate secretion of antidiuretic hormone; K50.90 Crohn's disease, unspecified, without complications; J44.9 Chronic obstructive pulmonary disease, unspecified; D69.6 Thrombocytopenia, unspecified; R74.01 Elevation of levels of liver transaminase levels; G47.33 Obstructive sleep apnea (adult) (pediatric); E11.9 Type 2 diabetes mellitus without complications; Z79.84 Long term (current) use of oral hypoglycemic drugs; Z20.822 Contact with and (suspected) exposure to COVID-19; I25.10 Atherosclerotic heart disease of native coronary artery without angina pectoris; Z87.891 Personal history of nicotine dependence
CPT/HCPCS: 36415; 70450; 70548; 70553; 71045; 80048; 80053; 80061; 80320; 81003; 82140; 82150; 82533; 82570; 82962; 83540; 83550; 83690; 83735; 83880; 83930; 83935; 84300; 84484; 85025; 87635; 87797; 93005; 93306; 94760; 96360; 96361; 97161; 99285; C9803; A9579; J1815; Q9957

== ENCOUNTER 2021-02-22 19:15 | Inpatient (IN) | payer MEDICARE, OTHER, SELFPAY ==
[2021-02-18 02:31] VITALS: BMI 26.3
[2021-02-22] VITALS (10 sets, daily range): BP systolic 143–144; BP diastolic 83–84; PULSE 78–92; RESP 12–35; TEMP 36.9; O2SAT 91–94; BMI 25.8
--- NOTE | 2021-02-22 19:41 | DI.RAD.S_ITS ---
PROCEDURE: XR CHEST 1V INDICATIONS: altered mental status TECHNIQUE: One view of the chest was acquired. COMPARISON: [facility], CR, XR CHEST 1V, 02/18/2021, 10:52. FINDINGS: Surgical changes and devices: None. Lungs and pleura: Patchy interstitial airspace opacities in both lungs, nonspecific. No pleural effusions or pneumothorax. Mediastinum: Mediastinal contours appear normal. Heart size is normal. Bones and chest wall: No suspicious bony lesions. Overlying soft tissues appear unremarkable. IMPRESSION: Patchy airspace and interstitial opacities in both lungs, nonspecific but most likely infection or pulmonary edema. Dictated by: Supa Márquez M.D. on 02/22/2021 at 19:54 Approved by: Supa Márquez M.D. on 02/22/2021 at 19:55
[2021-02-22 19:55] LABS: Neutrophils Absolute Auto 5600 /uL (1500-7000)
[2021-02-22 19:59] LABS: Add Manual Diff / Slide Review NO; Basophils Absolute Auto 100 /uL (0-100); Basophils Percent Auto 1.4 % (0-2); Eosinophils Absolute Auto 0 /uL (0-450); Eosinophils Percent Auto 0.2 % (2-4); Hematocrit 41.1 % (41-53); Hemoglobin 14.3 g/dL (13.5-17.5); Lymphocytes Absolute Auto 1400 /uL (1100-4500); Lymphocytes Percent Auto 18.6 % (25-40); Mean Corpuscular HGB Conc 34.8 % (30-36); Mean Corpuscular Hemoglobin 31.9 PG (26-34); Mean Corpuscular Volume 91.7 fL (80-100); Monocytes Absolute Auto 500 /uL (0-900); Monocytes Percent Auto 6.2 % (3-14); Neutrophils Percent Auto 73.6 % (50-75); Platelet Count 75 X10^3/uL (150-400); Red Blood Cell Count 4.48 X10^6/uL (4.5-5.9); Red Cell Distribution Width 14.2 % (11.6-14.8); White Blood Cell Count 7.5 X10^3/uL (4.5-11.0)
[2021-02-22 20:06] LABS: Alanine Aminotransferase 114 IU/L (<50); Albumin 4.2 g/dL (3.5-5.0); Albumin Globulin Ratio 1.1 (1.0-2.8); Alkaline Phosphatase 111 U/L (38-126); Ammonia (NH3) 45 umol/L (9-30); Aspartate Aminotransferase 105 IU/L (17-59); BUN Creatinine Ratio 39.3 (6-22); Bilirubin Total 1.6 mg/dL (0.2-1.3); Blood Urea Nitrogen 22 mg/dL (9-20); Calcium 9.7 mg/dL (8.4-10.2); Carbon Dioxide 25 mmol/L (22-32); Chloride 106 mmol/L (98-107); Estimated Glomerular Filt Rate > 60.0 mL/min (>60); Globulin 3.8 g/dL (1.7-4.1); Glucose 216 mg/dL (80-110); HEMOLYSIS 24 (0-50); Potassium 3.4 mmol/L (3.4-5.1); Sodium 142 mmol/L (137-145)
--- NOTE | 2021-02-22 20:16 | ED_ITS ---
HPI - Neuro Symptoms/Deficit General Chief Complaint: Neuro Symptoms/Deficit Stated Complaint: Confusion Time Seen by Provider: 02/22/21 19:45 Source: EMS Mode of arrival: EMS History of Present Illness HPI Narrative: 70-year-old gentleman with recurrent episodes of altered mental status presents for same today. He has had 2 admissions for the same since February 13 and this is now his 4th ER visit with the [facility] practice visit yesterday as well. Additional medical history includes a recent diagnosis of lung cancer, coronary artery disease post stenting, Crohn's disease, COPD, type 2 diabetes. Recent hospitalizations he was noted to have hyponatremia and elevated ammonia levels. With most recent discharge he was given a prescription for lactulose and instructed to use 20 g daily. His notes that he does well for a day or so after discharge and then again has increasing confusion. This evening symptoms became increasingly worse with an expressive aphasia, confusion. Medics note that he is improving from time of their arrival at the residence. Patient had a complete stroke workup including MRI that did not show any intracranial abnormalities. There is no significant history of falls, drug use, alcohol use. Again, he is obviously frustrated with his expressive aphasia and somewhat confused with direct questioning otherwise. His accompanies him today and notes that he has not had any fevers, cough, chills. Has been complaining of chest or abdominal pain. Notes that he has been having increasing urination and has to strain to void and, as of today, has been using adult diapers because of his incontinence. His reports that he does not seem to understand the adult diapers. On Anticoagulants: No Related Data Home Medications Medication Instructions Recorded Confirmed multivitamin 1 tab PO DAILY 07/28/18 02/21/21 aspirin 81 mg tablet,delayed 81 mg PO DAILY 04/22/19 02/21/21 release calcium carbonate 600 mg (1,500 1 cap PO DAILY cap 01/18/21 02/21/21 mg)-vitamin D3 500 unit capsule diphenhydramine 25 2 tab PO BEDTIME PRN tab 01/18/21 02/21/21 mg-acetaminophen 500 mg tablet vitamin B complex 1 tab PO DAILY 01/18/21 02/21/21 budesonide 6 mg PO BID 02/14/21 02/21/21 mesalamine 2.4 g PO BID 02/14/21 02/21/21 Previous Rx's Medication Instructions Recorded atorvastatin 80 mg tablet 80 mg PO Q DAY #90 tab 03/22/20 ezetimibe 10 mg tablet 10 mg PO DAILY #90 tab 03/22/20 pantoprazole 20 mg tablet,delayed 20 mg PO QDAY #90 tab 03/22/20 release metformin 500 mg tablet,extended 500 mg PO BID 30 Days #180 tab 01/13/21 release 24 hr lactulose 20 g PO DAILY #900 ml 02/20/21 Allergies Allergy/AdvReac Type Severity Reaction Status Date / Time No Known Drug Allergies Allergy Verified 02/22/21 19:36 Review of Systems Review of Systems Narrative: Remainder of complete review of systems is otherwise unremarkable except for that included in the HPI. Hematologic/Lymphatic On Anticoagulants: No Patient History Medical History Carotid bruit (08/06/11) Congestion of both ears Diaphragmatic hernia (08/06/11) Diverticulosis (08/06/11) Emphysema lung Insomnia, persistent Mass of lower lobe of left lung Muscle strain of left lower leg Obstructive sleep apnea of adult (~08/06/11) Snoring Surgical History History of angioplasty History of angioplasty Status post arthroscopy Family History Brother Heart disease High cholesterol Brother Age: 76 High cholesterol Father Heart disease Diabetes mellitus High cholesterol Mother Diabetes mellitus Heart disease High cholesterol Sister Age: 67 High cholesterol Social History household members: spouse and other Smoking Status: Former smoker Tobacco: How many years used: 44 alcohol intake: current substance use type: former substance user and marijuana Smoking Status: Former smoker alcohol intake frequency: holidays/special occasions only Substance Use Type: does not use Exam Narrative Exam Narrative: General: Healthy appearing, in no acute distress. Mild confusion and difficulty in expressing himself with obvious frustration with this HEENT: Moist mucous membranes, normal sclera with reactive pupils, Neck: No JVD, supple Respiratory: Lungs are clear to auscultation, no wheezing no rales no rhonchi. Full and symmetrical air movement Cardiac: Regular rate and rhythm no murmurs no bruits Abdomen: Soft, nontender, good bowel tones, no flank pain Skin: Warm and dry, no rashes Neurologic: No gross motor or sensory abnormalities Extremities: No trauma, well perfused Psych: Mild confusion and frustration, unable to speak with any fluency Initial Vital Signs Initial Vital Signs: Vital Signs Pulse Rate 92 H 02/22/21 19:21 Respiratory Rate 23 02/22/21 19:21 Blood Pressure 143/83 H 02/22/21 19:21 Pulse Oximetry 93 02/22/21 19:21 Course Orders Ordered: ED Orders 02/22/21 19:41 XR chest 1V Stat EKG-12 Lead Stat 02/22/21 19:45 Ammonia (NH3) Stat Complete Blood Count AUTO DIFF Stat Comprehensive Metabolic Panel Stat 02/22/21 22:08 Urine Drug Screen, Rapid Stat Urine Microscopic Stat 02/22/21 22:50 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) Stat Aspirin (Aspirin Ec 81 Mg Tablet) 81 mg PO DAILY ON LICENSE OF [facility] Budesonide (Budesonide 3 Mg Cap) 6 mg PO BID ON LICENSE OF [facility] Dextrose (Dextrose 50 % In Water 25 Gm/50 Ml Syringe) 25 gm IV PRN PRN PRN Reason: Hypoglycemia Ezetimibe (Ezetimibe 10 Mg Tablet) 10 mg PO DAILY ON LICENSE OF [facility] Insulin Human Lispro (Insulin Lispro 100 Unit/Ml 3ml Vial) 0 unit SUBCUT ACHS ON LICENSE OF [facility]; Protocol Lactulose (Lactulose 20 Gm/30 Ml Solution) 20 gm PO TID ON LICENSE OF [facility] Last Admin: 02/23/21 00:43 Dose: 20 gm Documented by: YULI Mesalamine (Mesalamine 800 Mg Tablet.) 2,400 mg PO BID ON LICENSE OF [facility] Naloxone HCl (Naloxone 0.4 Mg/Ml Vial) 0.2 mg IV Q2MIN PRN PRN Reason: Opiate Reversal Ondansetron HCl (Ondansetron 4 Mg/2 Ml Inj) 4 mg IV Q8HR PRN PRN Reason: Nausea And Vomiting Pantoprazole Sodium (Pantoprazole Dr 20 Mg Tablet) 20 mg PO DAILY ON LICENSE OF [facility] Discontinued Medications Atorvastatin Calcium (Atorvastatin 20 Mg Tablet) 80 mg PO DAILY ON LICENSE OF [facility] Lactulose (Lactulose 20 Gm/30 Ml Solution) 20 gm PO NOW ONE Stop: 02/22/21 21:43 Last Admin: 02/22/21 22:19 Dose: 20 gm Documented by: JEANINE Vital Signs Vital signs: Vital Signs - 8 hr 02/22/21 19:21 02/22/21 19:30 02/22/21 19:32 Temperature 98.4 F Pulse Rate 92 H 85 82 Respiratory Rate 23 21 12 Blood Pressure 143/83 H 144/84 H 144/84 H Pulse Oximetry 93 92 93 02/22/21 20:13 02/22/21 20:30 02/22/21 21:00 Temperature Pulse Rate 81 80 89 Respiratory Rate 27 H 23 32 H Blood Pressure Pulse Oximetry 91 94 91 02/22/21 21:30 02/22/21 22:00 02/22/21 22:30 Temperature Pulse Rate 82 78 92 H Respiratory Rate 30 H 25 H 35 H Blood Pressure Pulse Oximetry 91 93 94 MDM - Neuro Symptoms/Deficit Medical Records Attestation: I reviewed the patient's medical records. Lab Data Attestation: I reviewed the patient's lab results. Result diagrams: 02/22/21 19:45 02/22/21 19:45 Labs: Lab Results 02/22/21 02/22/21 02/22/21 Range/Units 19:45 19:45 19:45 WBC 7.5 (4.5-11.0) X10^3/uL RBC 4.48 L (4.5-5.9) X10^6/uL Hgb 14.3 (13.5-17.5) g/dL Hct 41.1 (41-53) % MCV 91.7 (80-100) fL MCH 31.9 (26-34) PG MCHC 34.8 (30-36) % RDW 14.2 (11.6-14.8) % Plt Count 75 L (150-400) X10^3/uL Neut % (Auto) 73.6 (50-75) % Lymph % (Auto) 18.6 L (25-40) % Jerome % (Auto) 6.2 (3-14) % Eos % (Auto) 0.2 L (2-4) % Baso % (Auto) 1.4 (0-2) % Neut # (Auto) 5600 (0869-1807) /uL Lymph # (Auto) 1400 (8400-1823) /uL Jerome # (Auto) 500 (0-900) /uL Eos # (Auto) 0 (0-450) /uL Baso # (Auto) 100 (0-100) /uL Sodium 142 (137-145) mmol/L Potassium 3.4 (3.4-5.1) mmol/L Chloride 106 (98-107) mmol/L Carbon Dioxide 25 (22-32) mmol/L BUN 22 H (9-20) mg/dL Creatinine 0.56 L (0.66-1.25) mg/dL Estimated GFR > 60.0 (>60) mL/min BUN/Creatinine Ratio 39.3 H (6-22) Glucose 216 H (80-110) mg/dL Calcium 9.7 (8.4-10.2) mg/dL Total Bilirubin 1.6 H (0.2-1.3) mg/dL AST 105 H (17-59) IU/L ALT 114 H (<50) IU/L Alkaline Phosphatase 111 (38-126) U/L Ammonia 45 H (9-30) umol/L Total Protein 8.0 (6.3-8.2) g/dL Albumin 4.2 (3.5-5.0) g/dL Globulin 3.8 (1.7-4.1) g/dL Albumin/Globulin Ratio 1.1 (1.0-2.8) Urine RBC (0-5/HPF) Urine WBC (0-5/HPF) Ur Squamous Epith Cells (0-5/HPF) Urine Bacteria (None) Ur Culture Indicated? U Opiates 300ng/mL cut (Negative) Ur Oxycodone Screen (Negative) Urine Methadone Screen (Negative) Ur Barbiturates Screen (Negative) U Tricyclic Antidepress (Negative) Ur Phencyclidine Scrn (Negative) Ur Amphetamines Screen (Negative) U Methamphetamines Scrn (Negative) Ur MDMA Scrn (Ecstasy) (Negative) U Benzodiazepines Scrn (Negative) Urine Cocaine Screen (Negative) U Marijuana (THC) Screen (Negative) SARS-CoV-2 (PCR) (Negative) 02/22/21 02/22/21 02/22/21 Range/Units 22:08 22:08 22:50 WBC (4.5-11.0) X10^3/uL RBC (4.5-5.9) X10^6/uL Hgb (13.5-17.5) g/dL Hct (41-53) % MCV (80-100) fL MCH (26-34) PG MCHC (30-36) % RDW (11.6-14.8) % Plt Count (150-400) X10^3/uL Neut % (Auto) (50-75) % Lymph % (Auto) (25-40) % Jerome % (Auto) (3-14) % Eos % (Auto) (2-4) % Baso % (Auto) (0-2) % Neut # (Auto) (2629-3283) /uL Lymph # (Auto) (9422-5832) /uL Jerome # (Auto) (0-900) /uL Eos # (Auto) (0-450) /uL Baso # (Auto) (0-100) /uL Sodium (137-145) mmol/L Potassium (3.4-5.1) mmol/L Chloride (98-107) mmol/L Carbon Dioxide (22-32) mmol/L BUN (9-20) mg/dL Creatinine (0.66-1.25) mg/dL Estimated GFR (>60) mL/min BUN/Creatinine Ratio (6-22) Glucose (80-110) mg/dL Calcium (8.4-10.2) mg/dL Total Bilirubin (0.2-1.3) mg/dL AST (17-59) IU/L ALT (<50) IU/L Alkaline Phosphatase (38-126) U/L Ammonia (9-30) umol/L Total Protein (6.3-8.2) g/dL Albumin (3.5-5.0) g/dL Globulin (1.7-4.1) g/dL Albumin/Globulin Ratio (1.0-2.8) Urine RBC 0-1/hpf (0-5/HPF) Urine WBC 0-1/hpf (0-5/HPF) Ur Squamous Epith Cells 0-1 /hpf (0-5/HPF) Urine Bacteria None seen (None) Ur Culture Indicated? Cult not indicated U Opiates 300ng/mL cut Negative (Negative) Ur Oxycodone Screen Negative (Negative) Urine Methadone Screen Negative (Negative) Ur Barbiturates Screen Negative (Negative) U Tricyclic Antidepress Negative (Negative) Ur Phencyclidine Scrn Negative (Negative) Ur Amphetamines Screen Negative (Negative) U Methamphetamines Scrn Negative (Negative) Ur MDMA Scrn (Ecstasy) Negative (Negative) U Benzodiazepines Scrn Negative (Negative) Urine Cocaine Screen Negative (Negative) U Marijuana (THC) Screen Negative (Negative) SARS-CoV-2 (PCR) Negative (Negative) Urine Dip Bedside Urine Glucose 100 mg/dl Bedside Urine Bilirubin - Negative Bedside Urine Ketone - Negative Urine Specific [place] 1.030 Bedside Urine Occult Blood - Negative Bedside Urine pH 6 Bedside Urine Protein +/- 15 Bedside Urine Urobilinogen +/- 1mg Bedside Urine Nitrite - Negative Bedside Urine Leukocytes - Negative Esterase Imaging Data Chest x-ray: Radiologist's Impression: FINDINGS: Surgical changes and devices: None. Lungs and pleura: Patchy interstitial airspace opacities in both lungs, nonspecific. No pleural effusions or pneumothorax. Mediastinum: Mediastinal contours appear normal. Heart size is normal. Bones and chest wall: No suspicious bony lesions. Overlying soft tissues appe ar unremarkable. IMPRESSION: Patchy airspace and interstitial opacities in both lungs, nonspecif ic but most likely infection or pulmonary edema. Dictated by: Supa Márquez M.D. on 02/22/2021 at 19:54 MDM Narrative Medical decision making narrative: 70-year-old gentleman with recurrent symptoms of confusion and difficulty with speaking. This is now his 3rd admission in approximately 2 weeks. Today he is not hyponatremic. Thorough stroke workup done within the last few days was not repeated today as symptoms are more consistent with his previous presentations of metabolic encephalopathy. His ammonia level is slightly elevated. There is no evidence of cardiac involvement no obvious stroke findings, no infection no significant acute urinary retention. In the emergency department he is given lactulose. Care is reviewed with the night hospitalist ANNA. Will admit him again for acute confusion and ence phalopathy. Will need to re-evaluate fully given the recurrent episodes and recurrent hospitalizations. Patient is safe for transfer to the floor Discharge Plan Departure Patient Disposition: Admitted as Observation Clinical Impression: Encephalopathy acute, Weakness, Mixed hyperlipidemia Admit Date/Time: 02/22/21 22:57 Admit Provider: Miriam Spring
--- NOTE | 2021-02-22 22:06 | PC.NURSE ---
Patient has continued difficulty expressing his thoughts. Patient attempts to communicate, shakes head and starts smiling. Expressing his frustration with inability to communicate. Can answer yes or no and occasional two-3 word coherent sentences.
[2021-02-22 22:09] LABS: Bacteria Urine None Seen
[2021-02-22 22:18] LABS: Culture Indicated Urine Cult Not Indicated; RBC Urine 0-1/HPF (0-5/HPF); Squamous Epithelial Cell Urine 0-1 /HPF (0-5/HPF); WBC Urine 0-1/HPF (0-5/HPF)
[2021-02-22] MEDS: LACTULOSE 20 GM/30 ML SOLUTION PO (22:19)
[2021-02-22 22:53] LABS: UR Morphine/Opiate cutoff 300 Negative (Negative); Ur Creatinine 20 (Normal); Ur Specific Gravity 1.025 (Normal); Urine Amphetamines Negative (Negative); Urine Barbiturates Negative (Negative); Urine Benzodiazepines Negative (Negative); Urine Cocaine Negative (Negative); Urine MDMA Negative (Negative); Urine Methadone Negative (Negative); Urine Methamphetamines Negative (Negative); Urine Oxycodone Negative (Negative); Urine Phencyclidine Negative (Negative); Urine Tetrahydrocannabinol Negative (Negative); Urine Tricyclic Antidepressant Negative (Negative); Urine pH 5 (Normal)
[2021-02-22 23:52] LABS: COVID19 - ADMIT (NP swab/PCR) Negative (Negative)
[2021-02-23] VITALS (9 sets, daily range): BP systolic 138–165; BP diastolic 70–95; PULSE 78–101; RESP 17–23; TEMP 36.4–36.7; O2SAT 91–93
[2021-02-23] MEDS: LACTULOSE 20 GM/30 ML SOLUTION PO ×4 (00:43→20:33)
--- NOTE | 2021-02-23 00:45 | P.HP_ITS ---
History of Present Illness History of Present Illness Date Patient Seen: 02/22/21 Time Patient Seen: 23:45 Chief complaint: Confusion Narrative: Sage Llanes is a 70-year-old male with history of coronary artery disease (multiple stents), Crohn's disease, COPD, type 2 diabetes, and a recent diagnosis of lung cancer with two recent hospitalizations for confusion secondary to hyponatremia returns with family and concern that the symptoms are back. He had been discharged 2 days ago and over the course of the day today he has become confused again with weakness ambulating with his walker. He has had no falls, traumas or injury. He denies any chest pain or shortness of breath. He has no abdominal pain or nausea or vomiting. He denies fever or chills. Patient was seen by Dr. Lofton, Senior Site Manager at [facility] on 02/03/21. Patient has been scheduled for a bronchoscopy on February 24 and a biopsy for March 06, 2021. There were findings of a left lower lung mass with mediastinal and hilar adenopathy. Patient was previously admitted on 02/13/21, discharged on 02/16/21 and again on 02/18/21, discharged on 02/20/2021 for metabolic encephalopathy in relation to hyponatremia with a sodium level of 118. Patient's sodium was corrected over a total of 4 days for total of 19 points ending in a sodium level of 135 on discharge at which time the patient's encephalopathy had resolved. Today, his sodium level is normal. During the past admission and discharge, the patient was prescribed a daily dose of lactulose 20 mg daily for hepatic encaphalopathy. He took doses on February 21 and had one large bowel movement and today, had several smaller bowel movements. He was administered a dose of lactulose in the ED today. On admit today patient's blood pressure is mildly elevated at 144/94, in the ED. He is tachypneac with a rate of 28 and an oxgyen saturation of 93%. CBC is unremarkable except for a platelet count of 75, last normal prior to February 13 of this year. His BUN is 22, creatinine 0.56 but his GFR is normal at greater than 60, glucose is 216, total bilirubin is 1.6, AST 105, ALT 114, and an ammonia level of 45, urine is negative for UTI and urine toxicology is negative, and COVID 19 PCR is negative. Patient History Medical History Carotid bruit (08/06/11) Congestion of both ears Diaphragmatic hernia (08/06/11) Diverticulosis (08/06/11) Emphysema lung Insomnia, persistent Mass of lower lobe of left lung Muscle strain of left lower leg Obstructive sleep apnea of adult (~08/06/11) Snoring Surgical History History of angioplasty History of angioplasty Status post arthroscopy Family & Social History Family History Brother Heart disease High cholesterol Brother Age: 76 High cholesterol Father Heart disease Diabetes mellitus High cholesterol Mother Diabetes mellitus Heart disease High cholesterol Sister Age: 67 High cholesterol Social History: household members spouse,other Prior Living Arrangements House Safety & Behavioral: Feels Safe in Current Yes Environment Been Physically Hurt or No Threatened By a Person Suicidal Ideation Description None Suicide Plan Description No Plan Tobacco & Substance use: Smoking Status Former smoker, 59 year pack history alcohol intake current alcohol intake frequency holiday/special occasion Substance Use Type does not use Meds Home Medications and Allergies Home Medications Medication Instructions Recorded Confirmed Type multivitamin 1 tab PO DAILY 07/28/18 02/21/21 History aspirin 81 mg tablet,delayed 81 mg PO DAILY 04/22/19 02/21/21 History release atorvastatin 80 mg tablet 80 mg PO Q DAY #90 tab 03/22/20 02/21/21 Rx ezetimibe 10 mg tablet 10 mg PO DAILY #90 tab 03/22/20 02/21/21 Rx pantoprazole 20 mg tablet,delayed 20 mg PO QDAY #90 tab 03/22/20 02/21/21 Rx release metformin 500 mg tablet,extended 500 mg PO BID 30 Days #180 tab 01/13/21 02/21/21 Rx release 24 hr calcium carbonate 600 mg (1,500 1 cap PO DAILY cap 01/18/21 02/21/21 History mg)-vitamin D3 500 unit capsule diphenhydramine 25 2 tab PO BEDTIME PRN tab 01/18/21 02/21/21 History mg-acetaminophen 500 mg tablet vitamin B complex 1 tab PO DAILY 01/18/21 02/21/21 History budesonide 6 mg PO BID 02/14/21 02/21/21 History mesalamine 2.4 g PO BID 02/14/21 02/21/21 History lactulose 20 g PO DAILY #900 ml 02/20/21 02/21/21 Rx Allergies Allergy/AdvReac Type Severity Reaction Status Date / Time No Known Drug Allergies Allergy Verified 02/22/21 19:36 Review of Systems Review of Systems Narrative: Constitutional: Denies fever, sweats or chills, HEENT: Denies visual or hearing impairment, difficulty swallowing, sore throat Resp: Denies cough, shortness of breath Cardiac: Denies chest pain, palpitations or orthopnea GI: Denies nausea or vomiting, abdominal pain, hematemesis, but has diarrhea since starting lactulose : Denies dysuria or hematuria Neuro: Denies numbing or tingling of upper or lower extremities, Extremities: Denies lower extremity swelling, active orthopedic problems Skin: Denies skin lesions or rashes Hme: Denies easy bleeding but has bruises on his arms Exam Vital Signs (past 8 hours): - 02/22/21 19:21 02/22/21 19:30 02/22/21 19:32 Temperature 98.4 F Pulse Rate 92 H 85 82 Respiratory Rate 23 21 12 Blood Pressure 143/83 H 144/84 H 144/84 H Pulse Oximetry 93 92 93 02/22/21 20:13 02/22/21 20:30 02/22/21 21:00 Temperature Pulse Rate 81 80 89 Respiratory Rate 27 H 23 32 H Blood Pressure Pulse Oximetry 91 94 91 02/22/21 21:30 02/22/21 22:00 02/22/21 22:30 Temperature Pulse Rate 82 78 92 H Respiratory Rate 30 H 25 H 35 H Blood Pressure Pulse Oximetry 91 93 94 02/22/21 23:00 Temperature Pulse Rate 85 Respiratory Rate 28 H Blood Pressure Pulse Oximetry 93 Oxygen Delivery Method Room Air Narrative Exam Narrative: Gen: Alert, oriented, well-developed 70 y.o. male, NAD HEENT: normocephalic, atraumatic, conjunctiva clear, sclera non-icteric, oral mucosa pink and moist Neck: supple, full ROM, no JVD, trachea is midline Resp: Lungs CTA, non-labored breathing CV: RRR, no murmur or rubs, no carotid bruits Abd: soft, non-tender, hyperactive BTs Skin: no lesions or rashes, dry and intact Neuro: Alert and oriented X 4 w/no focal deficits. Speech clear and coherent with occassional word finding difficulties. Cranial nerves 2-9 intact and bilateral Extremities: moves all 4 extremities, is ambulatory, negative Sarmad?s sign Psyche: normal mood and affect. Objective Labs Result Diagrams: 02/22/21 19:45 02/22/21 19:45 Labs: Laboratory Results - last 24 hr 02/22/21 02/22/21 02/22/21 19:45 19:45 19:45 WBC 7.5 RBC 4.48 L Hgb 14.3 Hct 41.1 MCV 91.7 MCH 31.9 MCHC 34.8 RDW 14.2 Plt Count 75 L Neut % (Auto) 73.6 Lymph % (Auto) 18.6 L Park % (Auto) 6.2 Eos % (Auto) 0.2 L Baso % (Auto) 1.4 Neut # (Auto) 5600 Lymph # (Auto) 1400 Park # (Auto) 500 Eos # (Auto) 0 Baso # (Auto) 100 Sodium 142 Potassium 3.4 Chloride 106 Carbon Dioxide 25 BUN 22 H Creatinine 0.56 L Estimated GFR > 60.0 BUN/Creatinine Ratio 39.3 H Glucose 216 H Calcium 9.7 Total Bilirubin 1.6 H AST 105 H ALT 114 H Alkaline Phosphatase 111 Ammonia 45 H Total Protein 8.0 Albumin 4.2 Globulin 3.8 Albumin/Globulin Ratio 1.1 Urine RBC Urine WBC Ur Squamous Epith Cells Urine Bacteria Ur Culture Indicated? U Opiates 300ng/mL cut Ur Oxycodone Screen Urine Methadone Screen Ur Barbiturates Screen U Tricyclic Antidepress Ur Phencyclidine Scrn Ur Amphetamines Screen U Methamphetamines Scrn Ur MDMA Scrn (Ecstasy) U Benzodiazepines Scrn Urine Cocaine Screen U Marijuana (THC) Screen SARS-CoV-2 (PCR) 02/22/21 02/22/21 02/22/21 22:08 22:08 22:50 WBC RBC Hgb Hct MCV MCH MCHC RDW Plt Count Neut % (Auto) Lymph % (Auto) Park % (Auto) Eos % (Auto) Baso % (Auto) Neut # (Auto) Lymph # (Auto) Park # (Auto) Eos # (Auto) Baso # (Auto) Sodium Potassium Chloride Carbon Dioxide BUN Creatinine Estimated GFR BUN/Creatinine Ratio Glucose Calcium Total Bilirubin AST ALT Alkaline Phosphatase Ammonia Total Protein Albumin Globulin Albumin/Globulin Ratio Urine RBC 0-1/hpf Urine WBC 0-1/hpf Ur Squamous Epith Cells 0-1 /hpf Urine Bacteria None seen Ur Culture Indicated? Cult not indicated U Opiates 300ng/mL cut Negative Ur Oxycodone Screen Negative Urine Methadone Screen Negative Ur Barbiturates Screen Negative U Tricyclic Antidepress Negative Ur Phencyclidine Scrn Negative Ur Amphetamines Screen Negative U Methamphetamines Scrn Negative Ur MDMA Scrn (Ecstasy) Negative U Benzodiazepines Scrn Negative Urine Cocaine Screen Negative U Marijuana (THC) Screen Negative SARS-CoV-2 (PCR) Negative Assessment & Plan Assessment & Plan narrative: Sage Mayo will be placed into observation overnight for hepatic encephalopathy. 1. Acute hepatic encephalopathy, present on admission, improving -patient was initially discharged on a daily dose of lactulose, this is normally prescribed 3-4 times daily with the expectation of 3 to 4 times a day normal sized bowel movements -he has been prescribed lactulose 20 mg 3 times a day and will start a 2nd dose tonight. -he appears to be clearing his encephalopathy. He was alert and oriented in the room and his stated that he was much better than when he 1st came in. 2. Left lower lung mass -he is being followed by pulmonology at [facility] -I have ordered a brain MRI to see if there may be possibility of metastatic lesions. Previous imaging of the brain of been MRAs and there was no mention of metastatic lesions in those earlier reports. 3. Recent history of mild hyponatremia consistent with SIADH, resolved 4. Thrombocytopenia, worsening -is platelet count is 74 recheck in the morning. Last normal was in mid December of this year. 5. Mild transaminitis with new elevated ammonia level -ammonia level is 45, likely due to inadequate lactulose therapy -Will hold atorvastatin overnight -Monitor daily liver enzymes -INR pending, patient refused early am draw. 6. Recent history of mild hyponatremia consistent with SIADH, resolved 7. Crohn's disease -continue home doses of mesalamine and oral budesimide 8. ABBI on CPAP, recent diagnosis -patient uses a CPAP machine and I have requested RT set up a CPAP machine for him tonight 9. Type 2 diabetes with a hemoglobin A1c of 5.6 on 02/14 -holding oral anti diabetics and he will be on low-dose correctional scale insulin 10. Probable COPD, chronic -appears to be stable at this point 11. CAD s/p stents -Continue home dose of ASA 81 mg po daily 12. HLD, chronic -due to elevated liver enzymes am holding atorvastatin -continue home dose of ezetimibe 10 mg po daily VTE prophylaxis: Wells risk score: 2.5 Bilateral SCDs Consults: none Patient is observation status as his stay is not likely to exceed 2 midnights. FEN: saline lock, carb controlled diet, BMP and magnesium in the am. Dispo: probable discharge to home Code Status: Full code as discussed with patient and his who is his surrogate Scores Wells' Criteria for PE Clinical signs and symptoms of DVT: No PE is #1 Dx or equally likely: No Heart rate > 100: No Immobilization at least 3 days or surg in previous 4 weeks: Yes History of PE or DVT: No Hemoptysis: No Malignancy w/Treatment within 6 months or palliative: Yes Wells' PE Score total: 2.5 Quality VTE Deep Vein Thrombosis/Pulmonary Embolism Present on Admission: No MIPS - Admit I confirm the patient?s Advance Care Plan is present, Code status is documented, Surrogate decision maker is in patient?s record [If Yes, STOP here]: Yes
--- NOTE | 2021-02-23 08:00 | DI.MRI.S_ITS ---
PROCEDURE: MR HEAD/BRAIN WO/W CON INDICATIONS: Confusion, consideration of brain mets MRA done 3 days ago TECHNIQUE: Noncontrast axial T1 spin echo, axial T2 fast spin echo, sagittal and axial FLAIR, coronal T2 fast spin echo, axial gradient echo, axial diffusion and ADC through the brain. After the administration of contrast, axial and coronal 3D VIBE or T1 spin echo with fat saturation through the brain. COMPARISON: [facility], MR, MR HEAD/BRAIN WO CON, 04/28/2019, 18:53. [facility], [place], PET NECK TO MID THIGH, 01/31/2021, 9:23. [facility], CT, CT HEAD/BRAIN WO CON, 02/17/2021, 22:39. [facility], MR, MR STROKE, 02/18/2021, 7:36. FINDINGS: Image quality: Excellent. CSF Spaces: Basal cisterns are patent. No extra-axial fluid collections. Ventricles are normal in size and shape. Brain: No midline shift. No intracranial bleeds or masses. No abnormal intracranial enhancement. The brainstem appears normal. Diffusion-weighted images demonstrate no acute ischemic insults. No chronic ischemic insults except for a subcentimeter focus of elevated signal on FLAIR imaging at the left anterior temporal tip, better visualized on the current study but present on the prior examination without enlargement.. Normal intravascular flow voids are present. Skull and face: Calvarial marrow is normal in signal. Orbits appear normal. Sinuses: Sinuses and mastoids appear clear. IMPRESSION: No enhancing mass lesion or mass effect. A small focus of chronic gliosis, sub cm, appears present at the left anterior temporal tip. This presumably is in area of gliosis related to microvascular atherosclerotic change, and shows no enhancement or elevated diffusion signal within. Dictated by: Arthur Guillen M.D. on 02/23/2021 at 11:09 Approved by: Arthur Guillen M.D. on 02/23/2021 at 11:17
[2021-02-23] MEDS: MESALAMINE 800 MG TABLET.DR 2400 MG PO ×2 (08:53→20:33)
[2021-02-23] MEDS: EZETIMIBE 10 MG TABLET PO (08:53)
[2021-02-23] MEDS: BUDESONIDE 3 MG CAP 6 MG PO (08:53)
[2021-02-23] MEDS: PANTOPRAZOLE DR 20 MG TABLET PO (08:53)
[2021-02-23] MEDS: ASPIRIN EC 81 MG TABLET PO (08:53)
[2021-02-23] MEDS: INSULIN LISPRO 100 UNIT/ML 3ML VIAL SUBCUT ×4 (08:54→21:50)
[2021-02-23] MEDS: SODIUM CHLORIDE 0.9% FLUSH 10 ML IV ×2 (08:54→20:33)
[2021-02-23 09:19] LABS: Add Manual Diff / Slide Review NO; Basophils Absolute Auto 0 /uL (0-100); Basophils Percent Auto 0.5 % (0-2); Eosinophils Absolute Auto 0 /uL (0-450); Eosinophils Percent Auto 0.3 % (2-4); Hematocrit 40.2 % (41-53); Lymphocytes Absolute Auto 1800 /uL (1100-4500); Lymphocytes Percent Auto 21.4 % (25-40); Mean Corpuscular HGB Conc 34.8 % (30-36); Mean Corpuscular Hemoglobin 31.8 PG (26-34); Mean Corpuscular Volume 91.2 fL (80-100); Monocytes Absolute Auto 500 /uL (0-900); Monocytes Percent Auto 6.4 % (3-14); Neutrophils Absolute Auto 5900 /uL (1500-7000); Neutrophils Percent Auto 71.4 % (50-75); Platelet Count 65 X10^3/uL (150-400); Red Blood Cell Count 4.41 X10^6/uL (4.5-5.9); Red Cell Distribution Width 14.6 % (11.6-14.8); White Blood Cell Count 8.3 X10^3/uL (4.5-11.0)
[2021-02-23 09:23] LABS: INR 1.3 (0.9-1.3); Prothrombin Time 14.4 SECONDS (10.1-12.7)
[2021-02-23 09:31] LABS: BUN Creatinine Ratio 33.3 (6-22); Blood Urea Nitrogen 18 mg/dL (9-20); Calcium 9.4 mg/dL (8.4-10.2); Carbon Dioxide 27 mmol/L (22-32); Chloride 103 mmol/L (98-107); Estimated Glomerular Filt Rate > 60.0 mL/min (>60); Glucose 245 mg/dL (80-110); HEMOLYSIS < 15 (0-50); Magnesium 2.1 mg/dL (1.6-2.3); Potassium 3.1 mmol/L (3.4-5.1); Sodium 139 mmol/L (137-145)
[2021-02-23 10:32] LABS: Alanine Aminotransferase 101 IU/L (<50); Albumin Globulin Ratio 1.3 (1.0-2.8); Alkaline Phosphatase 108 U/L (38-126); Aspartate Aminotransferase 85 IU/L (17-59); Bilirubin Total 1.3 mg/dL (0.2-1.3); Bilirubin Unconjugated 1.2 mg/dL (0.0-1.1); HEMOLYSIS < 15 (0-50)
--- NOTE | 2021-02-23 12:48 | CM.IDA ---
Initial DCP Assessment Note Patient is a 70 yo male, resident of [place]. Patient presents w/confusion and readmitted, this is patient's third admission since end of January for similar symptoms. Patient has been DC home w/close outpatient f/u recommended. PCP: Antonio Gore Payer: RANDY/Sajan Reviewed chart, met w/patient. Patient is [employer] [place] [employer], lives w/spouse and 5 yo grand dtr Mary. Patient/spouse do not have custody of their grand dtr at this time, son and dtr in law are active drug users. Patient has been active up until beginning of the year when his health began to decline. Patient hires help w/the yard, does most of the cooking, and spouse does the plowing gardens and errands. Patient awaiting a conversation w/Dr Flores to discuss medical POC, patient admits he is worried about his , because she has been having to do so much (lately). Patient expects no needs from this PHARMACEUTICAL SALESPERSON upon DC. Appreciative of the visit. Plan: DC expected home w/family, DCP team will continue to follow closely ADRIANNE Donovan Discharge Planning/Care Management CM Discharge Assessment Start: 02/23/21 12:46 Freq: Status: Active Protocol: Document 02/23/21 12:46 PERCY (Rec: 02/23/21 12:48 PERCY [id number]) Discharge Planning Assessment Assigned Warehouse Clerk ADRIANNE Vail DPOA/Assigned Designee Name Ludy Mario Alberto, spouse Contact Information [phone] Advance Directives? Yes Advance Directives on File No History Provided By Patient,Medical Record Prior Living Arrangements House Household Members spouse,other Type of transporation used prior to Drives own vehicle admit Independent with ADL's Yes Is patient alert and oriented? Yes: At baseline Needs Assistance With Home Chores / Shopping Barriers to Discharge No Comment Patient plans to return home w /spouse, eager to understand more about medical POC Discharge Plan Home Transportation Arrangement Ludy will provide transportation Referrals Initiated None needed Additional Comment At this time Whiteboard Updated in Patient Room with Yes name and ext. # of Warehouse Clerk
--- NOTE | 2021-02-23 14:14 | PM.PN.1 ---
Subjective Subjective Date Patient Seen: 02/23/21 Time Patient Seen: 14:14 Interval history: Today he is feeling improved but still intermittently confused. This morning he was agitated again and confused per nursing staff. He endorses auditory and visual hallucinations intermittently. He states he is not feeling like himself. He is unsure at home how many times he was having bowel movements. Symptoms seem to have started with steroid therapy, about a week after. Denies fever, muscle aches or pain today. No nausea or vomiting. Exam Vital Signs (past 8 hours): - 02/23/21 07:52 02/23/21 08:00 02/23/21 13:00 Temperature 97.7 F 98.1 F Pulse Rate 82 81 Respiratory Rate 19 20 Blood Pressure 143/73 H 138/70 Pulse Oximetry 93 93 92 Oxygen Delivery Method Room Air Oxygen Flow Rate 0 Narrative Exam Narrative: Gen: Alert, oriented, well-developed 70 y.o. male, NAD HEENT: normocephalic, atraumatic, conjunctiva clear, sclera non-icteric, oral mucosa pink and moist Neck: supple, full ROM, no JVD, trachea is midline Resp: Lungs CTA, non-labored breathing CV: RRR, no murmur or rubs, no carotid bruits Abd: soft, non-tender, hyperactive BTs Skin: no lesions or rashes, dry and intact Neuro: Alert and oriented X 4 w/no focal deficits. Speech clear and coherent with occassional word finding difficulties. Cranial nerves 2-12 intact bilaterally Extremities: moves all 4 extremities, is ambulatory, negative Sarmad?s sign Psyche: normal mood and affect. Objective Labs Result Diagrams: 02/23/21 09:00 02/23/21 09:00 Labs: Laboratory Results - last 24 hr 02/22/21 02/22/21 02/22/21 19:45 19:45 19:45 WBC 7.5 RBC 4.48 L Hgb 14.3 Hct 41.1 MCV 91.7 MCH 31.9 MCHC 34.8 RDW 14.2 Plt Count 75 L Neut % (Auto) 73.6 Lymph % (Auto) 18.6 L [place] % (Auto) 6.2 Eos % (Auto) 0.2 L Baso % (Auto) 1.4 Neut # (Auto) 5600 Lymph # (Auto) 1400 [place] # (Auto) 500 Eos # (Auto) 0 Baso # (Auto) 100 PT INR Sodium 142 Potassium 3.4 Chloride 106 Carbon Dioxide 25 BUN 22 H Creatinine 0.56 L Estimated GFR > 60.0 BUN/Creatinine Ratio 39.3 H Glucose 216 H Calcium 9.7 Magnesium Total Bilirubin 1.6 H Conjugated Bilirubin Unconjugated Bilirubin AST 105 H ALT 114 H Alkaline Phosphatase 111 Ammonia 45 H Total Protein 8.0 Albumin 4.2 Globulin 3.8 Albumin/Globulin Ratio 1.1 Urine RBC Urine WBC Ur Squamous Epith Cells Urine Bacteria Ur Culture Indicated? U Opiates 300ng/mL cut Ur Oxycodone Screen Urine Methadone Screen Ur Barbiturates Screen U Tricyclic Antidepress Ur Phencyclidine Scrn Ur Amphetamines Screen U Methamphetamines Scrn Ur MDMA Scrn (Ecstasy) U Benzodiazepines Scrn Urine Cocaine Screen U Marijuana (THC) Screen SARS-CoV-2 (PCR) 02/22/21 02/22/21 02/22/21 22:08 22:08 22:50 WBC RBC Hgb Hct MCV MCH MCHC RDW Plt Count Neut % (Auto) Lymph % (Auto) [place] % (Auto) Eos % (Auto) Baso % (Auto) Neut # (Auto) Lymph # (Auto) [place] # (Auto) Eos # (Auto) Baso # (Auto) PT INR Sodium Potassium Chloride Carbon Dioxide BUN Creatinine Estimated GFR BUN/Creatinine Ratio Glucose Calcium Magnesium Total Bilirubin Conjugated Bilirubin Unconjugated Bilirubin AST ALT Alkaline Phosphatase Ammonia Total Protein Albumin Globulin Albumin/Globulin Ratio Urine RBC 0-1/hpf Urine WBC 0-1/hpf Ur Squamous Epith Cells 0-1 /hpf Urine Bacteria None seen Ur Culture Indicated? Cult not indicated U Opiates 300ng/mL cut Negative Ur Oxycodone Screen Negative Urine Methadone Screen Negative Ur Barbiturates Screen Negative U Tricyclic Antidepress Negative Ur Phencyclidine Scrn Negative Ur Amphetamines Screen Negative U Methamphetamines Scrn Negative Ur MDMA Scrn (Ecstasy) Negative U Benzodiazepines Scrn Negative Urine Cocaine Screen Negative U Marijuana (THC) Screen Negative SARS-CoV-2 (PCR) Negative 02/23/21 02/23/21 02/23/21 09:00 09:00 09:00 WBC 8.3 RBC 4.41 L Hgb 14.0 Hct 40.2 L MCV 91.2 MCH 31.8 MCHC 34.8 RDW 14.6 Plt Count 65 L Neut % (Auto) 71.4 Lymph % (Auto) 21.4 L Wood[place] % (Auto) 6.4 Eos % (Auto) 0.3 L Baso % (Auto) 0.5 Neut # (Auto) 5900 Lymph # (Auto) 1800 [place] # (Auto) 500 Eos # (Auto) 0 Baso # (Auto) 0 PT INR Sodium 139 Potassium 3.1 L Chloride 103 Carbon Dioxide 27 BUN 18 Creatinine 0.54 L Estimated GFR > 60.0 BUN/Creatinine Ratio 33.3 H Glucose 245 H Calcium 9.4 Magnesium 2.1 Total Bilirubin 1.3 Conjugated Bilirubin 0.0 Unconjugated Bilirubin 1.2 H AST 85 H ALT 101 H Alkaline Phosphatase 108 Ammonia Total Protein 7.0 Albumin 4.0 Globulin 3.0 Albumin/Globulin Ratio 1.3 Urine RBC Urine WBC Ur Squamous Epith Cells Urine Bacteria Ur Culture Indicated? U Opiates 300ng/mL cut Ur Oxycodone Screen Urine Methadone Screen Ur Barbiturates Screen U Tricyclic Antidepress Ur Phencyclidine Scrn Ur Amphetamines Screen U Methamphetamines Scrn Ur MDMA Scrn (Ecstasy) U Benzodiazepines Scrn Urine Cocaine Screen U Marijuana (THC) Screen SARS-CoV-2 (PCR) 02/23/21 09:00 WBC RBC Hgb Hct MCV MCH MCHC RDW Plt Count Neut % (Auto) Lymph % (Auto) [place] % (Auto) Eos % (Auto) Baso % (Auto) Neut # (Auto) Lymph # (Auto) [place] # (Auto) Eos # (Auto) Baso # (Auto) PT 14.4 H INR 1.3 Sodium Potassium Chloride Carbon Dioxide BUN Creatinine Estimated GFR BUN/Creatinine Ratio Glucose Calcium Magnesium Total Bilirubin Conjugated Bilirubin Unconjugated Bilirubin AST ALT Alkaline Phosphatase Ammonia Total Protein Albumin Globulin Albumin/Globulin Ratio Urine RBC Urine WBC Ur Squamous Epith Cells Urine Bacteria Ur Culture Indicated? U Opiates 300ng/mL cut Ur Oxycodone Screen Urine Methadone Screen Ur Barbiturates Screen U Tricyclic Antidepress Ur Phencyclidine Scrn Ur Amphetamines Screen U Methamphetamines Scrn Ur MDMA Scrn (Ecstasy) U Benzodiazepines Scrn Urine Cocaine Screen U Marijuana (THC) Screen SARS-CoV-2 (PCR) [facility] Medical History Carotid bruit (08/06/11) Congestion of both ears Diaphragmatic hernia (08/06/11) Diverticulosis (08/06/11) Emphysema lung Insomnia, persistent Mass of lower lobe of left lung Muscle strain of left lower leg Obstructive sleep apnea of adult (~08/06/11) Snoring Surgical History History of angioplasty History of angioplasty Status post arthroscopy Family History Brother Heart disease High cholesterol Brother Age: 76 High cholesterol Father Heart disease Diabetes mellitus High cholesterol Mother Diabetes mellitus Heart disease High cholesterol Sister Age: 67 High cholesterol Social History household members: spouse and other Smoking Status: Former smoker Tobacco: How many years used: 44 alcohol intake: current substance use type: former substance user and marijuana Assessment & Plan Assessment & Plan narrative: 70M with PMH CAD status post multiple stents, Crohn's disease, emphysema, left lower lobe mass, Fatty Liver, non insulin-dependent type 2 diabetic who presented to the emergency room with worsening confusion. This is his 3rd admission for such, previously with hyponatremia, presumed hepatic encephalopathy, not seemingly improved. 1. Acute Toxic Metabolic encephalopathy, acute, present on admission -MRI again today showed no stroke or other acute abnormality. -differential includes hepatic encephalopathy, carnitine deficiency, steroid induced delirium, psychiatric source given hallucinations. -PT/OT evaluations. may benefit from rehab while encephalopathy improves. carnitine levels sent out, unknown timing for results. Will try and order L-carnitine, will work with pharmacy to see. -continue lactulose, titrate to 3-5 BMs daily. -reduced budesonide to 3 mg BID, start rapid taper given possible steroid induced encephalopathy. 2. Crohn's disease, chronic, not present on admission -continue home medications of mesalamine and budesonide but will reduce dosing to 3 mg BID instead of 6 given possible steroid induced encephalopathy. both non-formulary will have to have family bring in. 3. Emphysema, chronic, not present on admission -patient does not appear to be on any inhalers. No respiratory symptoms at this time, continue to monitor. Emphysema was seen on his recent CT that revealed his left lower lobe mass. 4. Non insulin-dependent type 2 diabetes, acute on chronic, present on admission, uncontrolled -as evidence by a glucose of 143 on admit, - start sliding scale patient reports good control on low dose metformin. - hold metformin, on 02/14/2021 A1c was 5.6% 5. History of CAD, chronic, not present on admission - continue home asa and statin. 6. Left lower lobe lung mass - outpatient workup, rescheduled biopsy at [facility] on 03/06/21. -noted patient has had a BMI decrease from 30.7 on 11/30/2020 to today's admit 26.3 7. Fatty liver disease possibly cirrhosis, acute on chronic, present on admission 8. 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 Code Status : Full Code Surrogate decision maker: patient's COVID PCR: Negative MRSA nasal swab of: Positive DVT/VTE prophylaxis: Lovenox daily. Dispo: unknown, pending PT/OT evaluations, timing unclear. Quality VTE Deep Vein Thrombosis/Pulmonary Embolism Present on Admission: No
--- NOTE | 2021-02-23 15:38 | PT.IIE ---
Current Diagnoses Obstructive sleep apnea (adult) (pediatric) (02/23/21) Surgical History (Last Reviewed 02/23/21 @ 03:05 by Lesa Tellez MD) History of angioplasty History of angioplasty Status post arthroscopy Medical History (Last Reviewed 02/23/21 @ 03:05 by Lesa Tellez MD) Carotid bruit (08/06/11) Congestion of both ears Diaphragmatic hernia (08/06/11) Diverticulosis (08/06/11) Emphysema lung Insomnia, persistent Mass of lower lobe of left lung Muscle strain of left lower leg Obstructive sleep apnea of adult (~08/06/11) Snoring Physical Therapy Inpatient Evaluation/Re-Eval M1 PT/OT-IP Prior Functional Status Start: 02/23/21 14:53 Freq: NEEDED Status: Active Protocol: Document 02/23/21 15:38 AW (Rec: 02/23/21 16:26 AW [id number]) Medical Review Prior Functional Status Medical History Reviewed Yes Communication Pt is able to make needs known . At this encounter, pt had episodes of word-finding difficulty resulting in frustration. Mobility and Gait Pt is typically independent without assistive device. He and his walk their dogs daily. However, pt has been hospitalized three times with acute encephalopathy since February 13. PT evaluated on 02/20 and recommended full-time use of FWW. Pt has been using FWW since that time. Pt's reports that his confusion appears to interfere with his mobility. When it is worst, pt needs assist and cues to move his extremities. He has not fallen but has had several near misses. Activities of Daily Living and IADL's At baseline, pt is independent with all ADL and IADL needs. He drives, shops, and cooks. Pt's confusion has been interfering with his ability to perform these tasks. Pt has been experiencing urinary incontinence and has been using absorbent briefs. Prior Functional Level (Other details) Pt was admitted with AMS and hyponatremia 02/13-02/16 and readmitted for same 02/18-. PMH includes recent diagnosis of lung cancer, CAD s/p stents, Crohn's disease, COPD, and diabetes. Social History Household Members spouse,other Living Arrangements House Number of Floors (Floors) One Floor Number of Stairs To Enter/Railing? 4 GIN with R rail ascending and a wall on the left side. Home Environment Standard Height Toilet,Walk in Shower Home Equipment Front Wheel Walker,Four Wheel Walker,Straight Cane,Bedside Commode,Shower Seat without Backrest,Hand Held Shower Employment Status Retired Additional Social History Comment Pt has an adjustable bed. He lives in [place] with his supportive , Ludy. M2 PT-IP Current Condition Start: 02/23/21 14:53 Freq: NEEDED Status: Active Protocol: Document 02/23/21 15:38 AW (Rec: 02/23/21 16:26 AW [id number]) Physical Therapy Current Condition Current Condition Evaluation Date 02/23/21 Treatment Diagnosis acute encephalopathy, confusion; impaired mobility. Onset Date 02/22/21 Precautions Other Precautions falls risk M3 PT-IP Subjective Start: 02/23/21 14:53 Freq: NEEDED Status: Active Protocol: Document 02/23/21 15:38 AW (Rec: 02/23/21 16:26 AW [id number]) Subjective Physical Therapy Visit Type Type Initial Evaluation Visit Start Time 15:09 Visit Stop Time 15:38 Total Visit Minutes 29 Notes Pt's , Ludy, was present throughout this encounter. Physical Therapy Visit Comments Patient Comments Pt is willing to participate with PT Patient Goals Pt would like to regain enough strength and confidence to be able to walk his dogs. Therapy Pain Assessment Pain When Pain Assessed During Mobility Pain Present Pain Present Denied Pain M4 PT-IP Mobility and Gait Start: 02/23/21 14:53 Freq: NEEDED Status: Active Protocol: Document 02/23/21 15:38 AW (Rec: 02/23/21 16:26 AW [id number]) PT-Bed Mobility Assessment Supine to Sit Supine to Sit Contact Guard Assistance Sit to Supine Sit to Supine Standby Assistance PT-Transfer Assessment Sit to and From Stand Sit to and from Stand Contact Guard Assistance, Minimal Assistance,1 Person Assistance,Use of Upper Extremities Equipment Transfer Assistive Device Gait Belt,Front Wheeled Walker Orthotic/Prosthetic Devices or Brace: No Transfers Transfer Destination Bed,Chair Transfer Technique Stand Step Pivot Transfer Ability Level of Assist Contact Guard Assistance,1 Person Assistance,Use of Upper Extremities Comments Mobility Comments Pt was sitting in the chair as PT arrived. BP was 150/89 HR 92. When asked to stand, pt became confused and needed step by step prompts for planning and execution. Pt was visibly frustrated by this. He stood with min assist and max cues. He used the walker to ambulate around the room, needing cues to slow down for safety. PT asked pt to don face mask. Pt looked at the mask and appeared not to know what to do with it. PT provided cues but pt struggled to use his hands to loop the mask around his ears. Ultimately, PT provided assist . Pt then ambulated in the hallway with FWW CGA. As he approached the stairs, he impulsively abandoned the walker before contacting the railing, needing min assist for stability. Pt then completed a set of stairs with R rail and CGA, nearly missing one step on the descent. He used the FWW to ambulate back to the room. He independently remembered the room number and located the room. He completed supine<>sit SBA to CGA and then stood without the walker to walk to the toilet. In the bathroom, he lifted the toilet seat and then needed cues to recall what he was doing in the bathroom. He voided and then walked back to the chair with FWW CGA. Pt was positioned in the chair with call light and tray table in reach. BP was 161/93 HR 91 after activity. Gait Assessment Gait Gait Assistance Required: Standby Assistance,Contact Guard Assist Distance (Feet) 160 Assistive Devices Assistive Device Gait Belt,Front Wheeled Walker Orthotic/Prosthetic Devices or Brace: No Gait Deviations General Gait Pattern Decreased Feet Clearance, Flexed Trunk Factors Limiting Gait Function Factors Limiting Gait Function Decreased Activity Tolerance, Decreased Sensation,Poor Balance,Poor Safety Awareness Comments Gait Comments Pt can be impulsive as described in mobility comments . Stair Climbing Assessment Evaluation Level of Assist On Stairs Contact Guard Assistance Devices Stair Climbing Assistive Devices Right Railing Technique/Endurance Stair Climbing Direction Ascend and Descend Stair Climbing Technique Step Over Step Number of Steps Climbed 3 Query Text: Stair Climbing Set # Repetitions (reps) 1 PT-Balance Assessment Sitting Balance and Reactions Static Sitting Balance Ability Good Dynamic Sitting Balance Ability Good Standing Balance and Reactions Static Standing Balance Ability Fair Dynamic Standing Balance Ability Fair Device Used FWW Balance Tests Romberg <10 sec EO; <2 sec EC Tandem Standing unable without assist M5 PT-IP Objective Assessments Start: 02/23/21 14:53 Freq: NEEDED Status: Active Protocol: Document 06/10/21 15:38 AW (Rec: 02/23/21 16:26 [id number]) Orientation Orientation/Cognition Level of Alertness Confusional State Orientation Name,Year,Day of Week,Place, Situation Language Function Ability Word Finding Difficulties Safety Awareness Decreased Safety Awareness Memory Description Short Term Impaired,Software Database Architect Impaired Gross Range of Motion Lower Extremity ROM Assessment Within Functional Limits Strength Lower Extremity Strength Assessment Within Functional Limits Hip 4+/5 Knee 5/5 Comments Strength Comments Strength WFL on MMT but easily fatigued in gait Coordination Assessment Gross Coordination Gross Coordination Impaired Assessment Finger to Nose Test LUE impaired with missed targets 2 cm Pronation/Supination Test Normal Performance Foot Tapping Test Normal Performance Coordination Comments Pt had difficulty following instructions for UE coordination testing. He followed direction with RUE but then touched his shoulder instead of his nose with LUE. When provided further demontration, pt continued to miss targets by ~2 cm Sensation Assessment Sensation Gross Sensation Right LE Impaired,Left LE Impaired Light Touch Impaired Proprioception (Position) Impaired Sensation Description Numbness Comments Sensation Comments Peripheral neuropathy affects bilateral feet with toes and midfoot more affected than hindfoot/ankle. Muscle Tone Muscle Tone WNL Yes M6 PT-IP Treatment Start: 02/23/21 14:53 Freq: NEEDED Status: Active Protocol: Document 02/23/21 15:38 AW (Rec: 02/23/21 16:26 [id number]) Physical Therapy Treatment Education Education Provided Safety Other Treatments Other Treatment Performed Educated pt and his on PT plan of care, need for increased processing time in communication, and best response to short, succinct directions. M7 PT-IP Assessment and Plan Start: 02/23/21 14:53 Freq: NEEDED Status: Active Protocol: Document 02/23/21 15:38 AW (Rec: 02/23/21 16:26 [id number]) PT Summary Assessment and Plan Potential Rehabilitation Potential Good Status of Condition at Evaluation Evolving Summary Impairments Strength,Balance,Coordination, Sensation,Cognition,Bed Mobility,Transfers,Gait, Activity Tolerance Assessment Summary Sage is a 70 yo man admitted for the third time in 10 days with acute encephalopathy. Pt is independent in all regards at baseline. On evaluation, pt has episodes of confusion and word-finding difficulty that affect his motor planning and mobility independence. He required CGA with most mobility using FWW which is a higher level of assist than was required at PT evaluation three days ago. Pt's has been providing mobility assist at home but his needs may exceed her abilities at this time. Pt may benefit from SNF rehab to improve activity tolerance and mobility for reduction of falls risk. If pt goes home, he would benefit from home health therapy. PT will continue to assess for safe discharge plan. Goals Bed Mobility Goal Independent Transfer Goal Independent,Front Wheeled Walker Gait Goal Independent,Front Wheel Walker Gait Distance 300 Other Goals - up/down 4 steps with R rail SBA Days to Meet Goals 5 Frequency of Treatment Frequency Of Treatment Once a Day Treatment Plan Physical Therapy Treatment Plan Bed Mobility Training,Transfer Training,Gait Training, Therapeutic Exercise,Balance Retraining,Discharge Planning, Hot or Cold Pack,Neuromuscular Re-ed,Coordination Retraining Other Recommendations and Next Treatment mobility as tolerated; Focus cognitive dual tasks as able Precautions Other Precautions falls risk Recommendations To Nursing Amount of Assist Needed 1 Person Assist Discharge Recommendations PT Discharge Recommendations Home vs SNF Transportation Needs at Discharge Private Vehicle
--- NOTE | 2021-02-23 16:51 | DIET.PN ---
Dietary Progress Note Assessment: 70y M admitted for confusion found to have metabolic encephalopathy secondary to hyponatremia referred to nutrition for fluctuating weight from recurring illnesses. Pt has hx of CAD, COPD, DM2, was dx c Crohns Disease about a year ago and recently found to have lung cancer. Pts Crohns was dx from bouts of bloody diarrhea. Pt currently taking meslamine and followed by GI at [facility], he does not like he has to take multiple pills daily with a cost of >$600/mo. Pt avoids most grains and sugars to manage sx and feels his sx are mostly controlled. Pt generally weighs around 180# but got up to 250# a few years ago secondary to inactivity and poor diet, pt back to his baseline weight which is comfortable for him. Pt feels he has been weight stable for several months. Pt loves protein and vegetables and bases his diet on these food groups for the most part. HT: 180cm WT: 84kg UBW: 84kg BMI: 25.8 Labs: K+ 3.1 L, Cr 0.54 L, BG 245, 198 H, elevated liver enzymes Nutrition Diagnosis: none at this time Interventions: 1. Acclimated pt to ordering own food at hospital using menu and calling down to kitchen. 2. Reiterated Specific Carbohydrate Diet for Crohns management which pt is currently following pretty closely Diet Order:CCD, fluid restriction
[2021-02-23] MEDS: POTASSIUM CHLORIDE 20 MEQ TAB 40 MEQ PO (17:07)
--- NOTE | 2021-02-23 17:11 | PC.NURSE ---
Addendum entered by Angely Kat R.N. 02/23/21 22:37: Assisted into bed for sleep. Denies pain, but states ready to sleep. Own cpap set up and ready to use and pt able to place this independently. Refuses scd's. Addendum entered by Angely Kat R.N. 02/23/21 20:06: Pt remains up in recliner verbally engaged in conversation with spouse. Addendum entered by Angely Kat R.N. 02/23/21 18:53: Pt is calm, cooperative with care and remains in recliner. Oriented to self, place, state, year and month, but unsure of date. Conversation flows appropriately with this specification writer and then pt requests that bucket. Questioned pt re bucket meaning i.e., urinal? Pt repeats and then moves hands to demonstrate tall cylinder. Pt then says, forget it. Unclear what was stated or described by pt. ELECTRIFIER OPERATOR remains close to nurse's station to watch pt and respond appropriately as pt does not use call light. Original Note: Pt up in recliner @ beginning of shift. Cooperative with care. Denies pain. Does begin to ask questions of this specification writer and then states, I don't remember. Encouraged pt to notify staff when recalling any concerns/questions. Pt has multiple scattered, purple bruises to BL UE's. Saline lock intact to right hand. Swallow intact. Taking diet well independently. Chair alarm in place.
[2021-02-24] VITALS (11 sets, daily range): BP systolic 130–163; BP diastolic 72–99; PULSE 75–94; RESP 17–20; TEMP 36.4–37.2; O2SAT 92–95
[2021-02-24 05:25] LABS: Add Manual Diff / Slide Review NO; Basophils Absolute Auto 100 /uL (0-100); Basophils Percent Auto 1.1 % (0-2); Eosinophils Absolute Auto 0 /uL (0-450); Eosinophils Percent Auto 0.5 % (2-4); Hematocrit 40.2 % (41-53); Lymphocytes Absolute Auto 1600 /uL (1100-4500); Lymphocytes Percent Auto 24.8 % (25-40); Mean Corpuscular HGB Conc 34.7 % (30-36); Mean Corpuscular Hemoglobin 31.8 PG (26-34); Mean Corpuscular Volume 91.5 fL (80-100); Monocytes Absolute Auto 400 /uL (0-900); Monocytes Percent Auto 6.2 % (3-14); Neutrophils Absolute Auto 4500 /uL (1500-7000); Neutrophils Percent Auto 67.4 % (50-75); Platelet Count 58 X10^3/uL (150-400); Red Blood Cell Count 4.39 X10^6/uL (4.5-5.9); Red Cell Distribution Width 14.4 % (11.6-14.8); White Blood Cell Count 6.6 X10^3/uL (4.5-11.0)
[2021-02-24 05:26] LABS: BUN Creatinine Ratio 28.6 (6-22); Blood Urea Nitrogen 18 mg/dL (9-20); Calcium 9.8 mg/dL (8.4-10.2); Carbon Dioxide 32 mmol/L (22-32); Chloride 102 mmol/L (98-107); Estimated Glomerular Filt Rate > 60.0 mL/min (>60); Glucose 166 mg/dL (80-110); HEMOLYSIS < 15 (0-50); Magnesium 2.2 mg/dL (1.6-2.3); Potassium 3.7 mmol/L (3.4-5.1); Sodium 140 mmol/L (137-145)
[2021-02-24 05:27] LABS: Alanine Aminotransferase 106 IU/L (<50); Albumin Globulin Ratio 1.1 (1.0-2.8); Alkaline Phosphatase 98 U/L (38-126); Aspartate Aminotransferase 88 IU/L (17-59); Bilirubin Total 1.4 mg/dL (0.2-1.3); Bilirubin Unconjugated 1.2 mg/dL (0.0-1.1); Globulin 3.5 g/dL (1.7-4.1); HEMOLYSIS < 15 (0-50); Total Protein 7.5 g/dL (6.3-8.2)
[2021-02-24] MEDS: INSULIN LISPRO 100 UNIT/ML 3ML VIAL SUBCUT ×4 (09:04→20:46)
[2021-02-24] MEDS: ASPIRIN EC 81 MG TABLET PO (09:05)
[2021-02-24] MEDS: BUDESONIDE 3 MG CAP PO ×2 (09:06→20:47)
[2021-02-24] MEDS: EZETIMIBE 10 MG TABLET PO (09:06)
[2021-02-24] MEDS: SODIUM CHLORIDE 0.9% FLUSH 10 ML IV ×2 (09:06→20:48)
[2021-02-24] MEDS: MESALAMINE 800 MG TABLET.DR 2400 MG PO ×2 (09:06→21:03)
[2021-02-24] MEDS: LACTULOSE 20 GM/30 ML SOLUTION PO ×3 (09:06→20:47)
[2021-02-24] MEDS: PANTOPRAZOLE DR 20 MG TABLET PO (09:06)
--- NOTE | 2021-02-24 10:00 | PT.IPTN ---
Current Diagnoses Obstructive sleep apnea (adult) (pediatric) (02/23/21) Physical Therapy Treatment Note M2 PT-IP Current Condition Start: 02/23/21 14:53 Freq: NEEDED Status: Active Protocol: Document 02/23/21 15:38 AW (Rec: 02/23/21 16:26 AW [id number]) Physical Therapy Current Condition Current Condition Evaluation Date 02/23/21 Treatment Diagnosis acute encephalopathy, confusion; impaired mobility. Onset Date 02/22/21 Precautions Other Precautions falls risk M3 PT-IP Subjective Start: 02/23/21 14:53 Freq: NEEDED Status: Active Protocol: Document 02/24/21 10:00 AB (Rec: 02/24/21 12:09 AB [id number]) Subjective Physical Therapy Visit Type Type Treatment Note Visit Start Time 10:00 Visit Stop Time 10:22 Total Visit Minutes 22 Number of CHEMICAL COMPOUNDER Visits 0 Physical Therapy Visit Comments Patient Comments pt is agreeable to do PT Therapy Pain Assessment Pain Present Pain Present Denied Pain M4 PT-IP Mobility and Gait Start: 02/23/21 14:53 Freq: NEEDED Status: Active Protocol: Document 02/24/21 10:00 AB (Rec: 02/24/21 12:09 AB [id number]) PT-Transfer Assessment Sit to and From Stand Sit to and from Stand Contact Guard Assistance,1 Person Assistance,Use of Upper Extremities Equipment Transfer Assistive Device Gait Belt,Front Wheeled Walker Orthotic/Prosthetic Devices or Brace: No Comments Mobility Comments pt sitting on chair with spouse in room. pt agreed to do PT. pt can be impulsive. completed sit to stand from chair CGA and cues to slow down. educated on stabilizing using FWW. pt ambulated in room using FWW CGA ~ 20 ft. noted increase RLE ER with decrease step width. O2 sat checked after ambulation: 87% at room air. cued pt regarding deep breathing. O2 sat increased to ~ 90-92% > 1min. pt stated that he has h /o cancer and is not surprised that his O2 decreases. pt agreed to ambulate again and completed 20 ft x 2 . focusing on stability, safety, posture and increasing step width. also educated on deep breathing in between tasks. O2 sat after ambulation 90%. pt agreed to stay up on chair. positioned on chair. call light and table placed within reach. educated pt on safety, deep breathing in between tasks. pt understood. informed nurse Katarina regarding pt's decrease in O2 sat during mobility. Gait Assessment Gait Gait Assistance Required: Contact Guard Assist Distance (Feet) 20 Able to Maintain Weight Bearing Status Yes During Gait Assistive Devices Assistive Device Gait Belt,Front Wheeled Walker Orthotic/Prosthetic Devices or Brace: No Gait Deviations General Gait Pattern Decreased Stride Length, Decreased Feet Clearance Factors Limiting Gait Function Factors Limiting Gait Function Decreased Activity Tolerance, Decreased Strength,Poor Balance,Poor Safety Awareness, Respiratory Distress Comments Gait Comments pls refer to mobility section for details M5 PT-IP Objective Assessments Start: 02/23/21 14:53 Freq: NEEDED Status: Active Protocol: Document 02/23/21 15:38 AW (Rec: 02/23/21 16:26 AW [id number]) Orientation Orientation/Cognition Level of Alertness Confusional State Orientation Name,Year,Day of Week,Place, Situation Language Function Ability Word Finding Difficulties Safety Awareness Decreased Safety Awareness Memory Description Short Term Impaired,Automatic Lathe Setter Impaired Gross Range of Motion Lower Extremity ROM Assessment Within Functional Limits Strength Lower Extremity Strength Assessment Within Functional Limits Hip 4+/5 Knee 5/5 Comments Strength Comments Strength WFL on MMT but easily fatigued in gait Coordination Assessment Gross Coordination Gross Coordination Impaired Assessment Finger to Nose Test LUE impaired with missed targets 2 cm Pronation/Supination Test Normal Performance Foot Tapping Test Normal Performance Coordination Comments Pt had difficulty following instructions for UE coordination testing. He followed direction with RUE but then touched his shoulder instead of his nose with LUE. When provided further demontration, pt continued to miss targets by ~2 cm Sensation Assessment Sensation Gross Sensation Right LE Impaired,Left LE Impaired Light Touch Impaired Proprioception (Position) Impaired Sensation Description Numbness Comments Sensation Comments Peripheral neuropathy affects bilateral feet with toes and midfoot more affected than hindfoot/ankle. Muscle Tone Muscle Tone WNL Yes M6 PT-IP Treatment Start: 02/23/21 14:53 Freq: NEEDED Status: Active Protocol: Document 02/24/21 10:00 AB (Rec: 02/24/21 12:09 AB [id number]) Physical Therapy Treatment Education Education Provided Safety M7 PT-IP Assessment and Plan Start: 02/23/21 14:53 Freq: NEEDED Status: Active Protocol: Document 02/24/21 10:00 AB (Rec: 02/24/21 12:09 AB [id number]) PT Summary Assessment and Plan Potential Rehabilitation Potential Good Summary Impairments Pain,ROM,Strength,Balance, Coordination,Sensation, Cognition,Bed Mobility, Transfers,Gait,Activity Tolerance Progress Towards Goals Slow Progress due to Medical Issues,Slow Progress due to Activity Tolerance Assessment Summary pt requiring CGA with mobility but with decrease activity tolerance with decrease O2 sat to 87% after ~ 20 ft of ambulation using FWW. pt has h/o falls and hospitalizations and will beenfit from SNF rehab to improve overall strength and mobility independence. Goals Bed Mobility Goal Independent Transfer Goal Independent,Front Wheeled Walker Gait Goal Independent,Front Wheel Walker Gait Distance 300 Other Goals - up/down 4 steps with R rail SBA Days to Meet Goals 5 Frequency of Treatment Frequency Of Treatment Once a Day Treatment Plan Physical Therapy Treatment Plan Bed Mobility Training,Transfer Training,Gait Training, Therapeutic Exercise,Balance Retraining,Discharge Planning, Hot or Cold Pack,Neuromuscular Re-ed,Coordination Retraining Precautions Other Precautions falls Recommendations To Nursing Amount of Assist Needed 1 Person Assist Discharge Recommendations PT Discharge Recommendations SNF Rehab Transportation Needs at Discharge Private Vehicle
--- NOTE | 2021-02-24 10:32 | CM.DPNOTE ---
Addendum entered by ADRIANNE Donovan 02/25/21 12:32: Patient accepted to [facility] for Saturday, needs to bring his home med Mesalamine with him, spouse updated. Original Note: DCP Cont Discussed DCP w/patient and spouse this morning; both requesting DC to [facility] if bed available. Copy of COVID-19 vaccination card provided by spouse, scanned into record and faxed to February at [facility] Reviewed referral w/February at [facility], now under review. PASRR completed. Plan: DC expected to SNF; patient can use his MCR benefit for this plan on Saturday02.26.21 [facility]
--- NOTE | 2021-02-24 11:35 | OT.IP.EVAL ---
Current Diagnoses Obstructive sleep apnea (adult) (pediatric) (02/23/21) Past Medical History (Last Reviewed 02/23/21 @ 03:05 by Lesa Tellez MD) Carotid bruit (08/06/11) Congestion of both ears Diaphragmatic hernia (08/06/11) Diverticulosis (08/06/11) Emphysema lung Insomnia, persistent Mass of lower lobe of left lung Muscle strain of left lower leg Obstructive sleep apnea of adult (~08/06/11) Snoring Surgical History (Last Reviewed 02/23/21 @ 03:05 by Lesa Tellez MD) History of angioplasty History of angioplasty Status post arthroscopy Occupational Therapy Inpatient Evaluation/Re-Eval M1 PT/OT-IP Prior Functional Status Start: 02/23/21 14:53 Freq: NEEDED Status: Active Protocol: Document 02/24/21 10:55 [facility] (Rec: 02/24/21 12:42 [facility] [id number]) Medical Review Prior Functional Status Medical History Reviewed Yes Communication Pt is able to make needs known . At this encounter, pt had episodes of word-finding difficulty resulting in frustration. Mobility and Gait Pt is typically independent without assistive device. He and his walk their dogs daily. However, pt has been hospitalized three times with acute encephalopathy since February 13. PT evaluated on 02/20 and recommended full-time use of FWW. Pt has been using FWW since that time. Pt's reports that his confusion appears to interfere with his mobility. When it is worst, pt needs assist and cues to move his extremities. He has not fallen but has had several near misses. Activities of Daily Living and IADL's At baseline, pt is independent with all ADL and IADL needs. He drives, shops, and cooks. Pt's confusion has been interfering with his ability to perform these tasks. Pt has been experiencing urinary incontinence and has been using absorbent briefs. pt states during OT eval will not be driving anymore. Prior Functional Level (Other details) Pt was admitted with AMS and hyponatremia 02/13-02/16 and readmitted for same 02/18-. PMH includes recent diagnosis of lung cancer, CAD s/p stents, Crohn's disease, COPD, and diabetes. Social History Household Members spouse,other Living Arrangements House Number of Floors (Floors) One Floor Number of Stairs To Enter/Railing? 4 GIN with R rail ascending and a wall on the left side. Home Environment Standard Height Toilet,Walk in Shower Home Equipment Front Wheel Walker,Four Wheel Walker,Straight Cane,Bedside Commode,Shower Seat without Backrest,Hand Held Shower Employment Status Retired Additional Social History Comment Pt has an adjustable bed. He lives in [place] with his supportive , Ludy. M2 OT-IP Current Condition Start: 02/24/21 12:18 Freq: Status: Active Protocol: Document 02/24/21 10:55 [facility] (Rec: 02/24/21 12:42 [facility] [id number]) Occupational Therapy Current Condition Current Condition Evaluation Date 02/24/21 Treatment Diagnosis Acute toxic encephalopathy, decreased mobility and confusion Diagnosis Onset Date 02/23/21 M3 OT- IP Subjective and Pain Start: 02/24/21 12:18 Freq: Status: Active Protocol: Document 02/24/21 10:55 [facility] (Rec: 02/24/21 12:42 [facility] [id number]) OT- Subjective Occupational Therapy Visit Type Type Initial Evaluation Visit Start Time 10:55 Visit Stop Time 11:35 Total Visit Minutes 40 Occupational Therapy Visit Comments Patient Comments Pt agreed to get up for Ot eval. Patient/Caregiver Goals To go to skilled rehab and getter better before going home. OT Pain Assessment Pain When Pain Assessed At Rest Pain Present Pain Present Denied Pain M4 OT- IP ADL's Start: 02/24/21 12:18 Freq: Status: Active Protocol: Document 02/24/21 10:55 [facility] (Rec: 02/24/21 12:42 [facility] [id number]) OT [id number] Comments OT Self-Feeding Comments Not at meal time, pt on strict fluid restrictions. OT ADL-Grooming Comments OT Grooming Comments Pt states did prior. Able to give pt mouth moisturizer, nursing aware. OT ADL-Oral Care Comments Oral Care Comments Pt states did earlier. OT ADL-Dressing General Eval Lower Body Dressing Ability Standby Assistance Comments OT Dressing Comments While seated. OT ADL-Toileting General Evaluation Toileting Ability Standby Assistance,Contact Guard Assistance Comments OT Toileting Comments CGA for balance for clothing management needs. OT ADL-Bathing Comments OT Bathing Comments Pt too tired to attempt at this time. M5 OT- IP IADL's Start: 02/24/21 12:18 Freq: Status: Active Protocol: Document 02/24/21 10:55 [facility] (Rec: 02/24/21 12:42 [facility] [id number]) OT-Instrumental Activities of Daily Living Medication Management Medication Management Caregiver Administers Money Management Money Management Caregiver Provides Assistance Meal Preparation Meal Preparation Caregiver Provides Assist Allied Health Teacher Allied Health Teacher Caregiver Provides Assist Driving Driving Caregiver Provides Assist Driving Comments Pt states has given up driving at this time. M6 OT- IP Functional Cognition Start: 02/24/21 12:18 Freq: Status: Active Protocol: Document 02/24/21 10:55 [facility] (Rec: 02/24/21 12:42 [facility] [id number]) Cognitive Factors Limiting Selfcare Function Cognitive Ability Level of Alertness Alert Patient Orientation Name,Age,Birthday,Month,Date, Year,Day of Week,Place, Situation Attention Span Ability Capable of Focused Attention, Capable of Sustained Attention Ability to Follow Commands Able to Follow One Step Commands Memory Description Short Term Impaired Cognitive Tests SLUMS Pt scored 19/30 on SLUMS which implies borderline dementia. Pt states realizes has decreased STM and has to write things down often or relies on his to assist him. Pt able to recall 2/5 objects after time passed, not able to say 4 digit number backwards, not able to draw the hours hands on the clock properly after time given, and able to answer 2/4 questions rigth after paragraph read. Cognitive Comments Cognitive Assessment Comments Pt a little impulsive and needing cues to slow down. VC to keep the FWW in front of him at all times, vc to push up with his hands from the armrest of the recliner when coming to stand. Pt did recall from PT to make sure to keep his feet wider apart when coming to stand. OT- Vision and Hearing OT- Hearing Assessment OT- Hearing Assessment WFL OT- Vision Assessment Visual Acuity Glasses All The Time M7 OT- IP Mobility and Balance Start: 02/24/21 12:18 Freq: Status: Active Protocol: Document 02/24/21 10:55 [facility] (Rec: 02/24/21 12:42 [facility] [id number]) OT-Transfer Assessment Sit to and From Stand Sit to and from Stand Standby Assistance,Contact Guard Assistance Transfers Transfer Ability Standby Assistance,Contact Guard Assistance Technique Transfer Destination Chair,Toilet Transfer Technique Stand Step Pivot Devices Transfer Assistive Devices Gait Belt,Front Wheeled Walker Comments Mobility Comments CLose SBA to occasional CGA for balance for sit to stand and transfers. Pt on RA after OT session 92% O2 reading BP 130/72. OT- Balance Assessment Sitting Balance and Reactions Static Sitting Balance Ability Normal Dynamic Sitting Balance Ability Good Standing Balance and Reactions Static Standing Balance Ability Fair Dynamic Standing Balance Ability Fair M8 OT- IP Objective Assessments Start: 02/24/21 12:18 Freq: Status: Active Protocol: Document 02/24/21 10:55 [facility] (Rec: 02/24/21 12:42 [id number] OT Gross Range of Motion Upper Extremity Range of Motion Assessment Within Functional Limits OT Strength Upper Extremity Strength Assessment Within Functional Limits OT- Coordination Assessment Upper Extremity Finger to Nose Test Left UE Impaired Comments Coordination Comments Left hand slightly off for finger to nose. OT-Muscle Tone Assessment Muscle Tone WNL Yes M9 OT- IP Assessment and Plan Start: 02/24/21 12:18 Freq: Status: Active Protocol: Document 02/24/21 10:55 [facility] (Rec: 02/24/21 12:42 [id number] OT Summary Assessment and Plan Potential Rehabilitation Potential Good Analytic Complexity at Evaluation Moderate Summary OT Impairments Balance,Functional Cognition, Functional Mobility,Grooming, Dressing,Toileting,Bathing, Toilet Transfers,Shower Transfers,Activity Tolerance Progress Towards Goals Slow Progress due to Medical Issues,Slow Progress due to Activity Tolerance Assessment Summary Pt MOD complexity and main barriers are steps, decreased activity tolerance, decreased STM, a times a bit impulsive and needing cues to slow down. Pt has been hospitalized multiple time in recent times and wanting to go to skilled rehab prior to going home to work. Pt is motivated to get better. Pt to go to skiilled rehab when medically stable. Goals Self-Feeding Goal Independent Grooming Goal Independent Dressing Goal Independent Toileting Goal Independent Bathing Goal Independent Toilet Transfer Goal Independent Shower Transfer Goal Independent Days to Meet Goals 10 Frequency of Treatment Frequency Of Treatment Once a Day Treatment Plan OT Treatment Plan ADL Training,Functional Cognition Training,Functional Mobility,Patient/Family Education,Discharge Planning Other Treatment Recommendations and Next shower Treatment Focus Discharge Recommendations OT Discharge Recommendations SNF Rehab Transportation Needs at Discharge Private Vehicle,Wheelchair/ Cabulance
[2021-02-24] MEDS: LEVOCARNITINE IV ×2 (13:06→18:35)
[2021-02-24] MEDS: SODIUM CHLORIDE 0.9% IV ×2 (13:06→18:35)
--- NOTE | 2021-02-24 15:37 | P.PN_ITS ---
Subjective Subjective Date Patient Seen: 02/24/21 Time Patient Seen: 15:37 Interval history: Today he is feeling improved but still intermittently confused. He is unsure at home how many times he was having bowel movements. No complaints today, no chest pain, nausea, vomiting. Exam Vital Signs (past 8 hours): - 02/24/21 10:00 02/24/21 10:10 02/24/21 12:00 Temperature 98.5 F Pulse Rate 94 H Respiratory Rate 18 Blood Pressure 130/72 Pulse Oximetry 92 92 92 Oxygen Delivery Method Room Air Oxygen Flow Rate 0 Narrative Exam Narrative: Gen: Alert, oriented, well-developed 70 y.o. male, NAD HEENT: normocephalic, atraumatic, conjunctiva clear, sclera non-icteric, oral mucosa pink and moist Neck: supple, full ROM, no JVD, trachea is midline Resp: Lungs CTA, non-labored breathing CV: RRR, no murmur or rubs, no carotid bruits Abd: soft, non-tender, hyperactive BTs Skin: no lesions or rashes, dry and intact Neuro: Alert and oriented X 4 w/no focal deficits. Speech clear and coherent with occassional word finding difficulties. Cranial nerves 2-12 intact bilatera lly Extremities: moves all 4 extremities, is ambulatory, negative Sarmad?s sign Psyche: normal mood and affect. Objective Labs Result Diagrams: 02/24/21 05:05 02/24/21 05:05 Labs: Laboratory Results - last 24 hr 02/24/21 02/24/21 02/24/21 05:05 05:05 05:05 WBC 6.6 RBC 4.39 L Hgb 14.0 Hct 40.2 L MCV 91.5 MCH 31.8 MCHC 34.7 RDW 14.4 Plt Count 58 L Neut % (Auto) 67.4 Lymph % (Auto) 24.8 L Posey % (Auto) 6.2 Eos % (Auto) 0.5 L Baso % (Auto) 1.1 Neut # (Auto) 4500 Lymph # (Auto) 1600 Posey # (Auto) 400 Eos # (Auto) 0 Baso # (Auto) 100 Sodium 140 Potassium 3.7 Chloride 102 Carbon Dioxide 32 BUN 18 Creatinine 0.63 L Estimated GFR > 60.0 BUN/Creatinine Ratio 28.6 H Glucose 166 H Calcium 9.8 Magnesium 2.2 Total Bilirubin 1.4 H Conjugated Bilirubin 0.0 Unconjugated Bilirubin 1.2 H AST 88 H ALT 106 H Alkaline Phosphatase 98 Total Protein 7.5 Albumin 4.0 Globulin 3.5 Albumin/Globulin Ratio 1.1 [facility] History Carotid bruit (08/06/11) Congestion of both ears Diaphragmatic hernia (08/06/11) Diverticulosis (08/06/11) Emphysema lung Insomnia, persistent Mass of lower lobe of left lung Muscle strain of left lower leg Obstructive sleep apnea of adult (~08/06/11) Snoring Surgical History History of angioplasty History of angioplasty Status post arthroscopy Family History Brother Heart disease High cholesterol Brother Age: 76 High cholesterol Father Heart disease Diabetes mellitus High cholesterol Mother Diabetes mellitus Heart disease High cholesterol Sister Age: 67 High cholesterol Social History household members: spouse and other Smoking Status: Former smoker Tobacco: How many years used: 44 alcohol intake: current substance use type: former substance user and marijuana Assessment & Plan Assessment & Plan narrative: 70M with PMH CAD status post multiple stents, Crohn's disease, emphysema, left lower lobe mass, Fatty Liver, non insulin- dependent type 2 diabetic who presented to the emergency room with worsening confusion. This is his 3rd admission for such, previously with hyponatremia, presumed hepatic encephalopathy, not seemingly improved. 1. Acute Toxic Metabolic encephalopathy, acute, present on admission, improving -MRI showed no stroke or other acute abnormality. -differential includes hepatic encephalopathy, carnitine deficiency, steroid induced delirium, psychiatric source given hallucinations. -PT/OT evaluations. may benefit from rehab while encephalopathy improves. carnitine levels sent out, unknown timing for results. Will try and order L- carnitine, will work with pharmacy to see. -continue lactulose, titrate to 3-5 BMs daily. -reduced budesonide to 3 mg BID, still needs prolonged taper given crohn's disease. 2. Crohn's disease, chronic, not present on admission -continue home medications of mesalamine and budesonide but reduced dosing to 3 mg BID instead of 6 given possible steroid induced encephalopathy. both non- formulary will have to have family bring in. 3. Emphysema, chronic, not present on admission -patient does not appear to be on any inhalers. No respiratory symptoms at this time, continue to monitor. Emphysema was seen on his recent CT that revealed his left lower lobe mass. 4. Non insulin-dependent type 2 diabetes, acute on chronic, present on admission, uncontrolled -as evidence by a glucose of 143 on admit, - start sliding scale patient reports good control on low dose metformin. - hold metformin, on 02/14/2021 A1c was 5.6% 5. History of CAD, chronic, not present on admission - continue home asa and statin. 6. Left lower lobe lung mass - outpatient workup, rescheduled biopsy at [facility] on 03/06/21. -noted patient has had a BMI decrease from 30.7 on 11/30/2020 to today's admit 26.3 7. Fatty liver disease possibly cirrhosis, acute on chronic, present on admission 8. 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 Code Status : Full Code Surrogate decision maker: patient's COVID PCR: Negative MRSA nasal swab of: Positive DVT/VTE prophylaxis: Lovenox daily. Dispo: unknown, pending PT/OT evaluations, Quality VTE Deep Vein Thrombosis/Pulmonary Embolism Present on Admission: No
[2021-02-25] VITALS (17 sets, daily range): BP systolic 138–202; BP diastolic 66–95; PULSE 70–101; RESP 18–43; TEMP 36.2–37.2; O2SAT 92–98
[2021-02-25] MEDS: LEVOCARNITINE IV ×4 (00:13→19:01)
[2021-02-25] MEDS: SODIUM CHLORIDE 0.9% IV ×4 (00:13→19:01)
[2021-02-25 05:35] LABS: Add Manual Diff / Slide Review NO; Basophils Absolute Auto 0 /uL (0-100); Basophils Percent Auto 0.7 % (0-2); Eosinophils Absolute Auto 0 /uL (0-450); Eosinophils Percent Auto 0.5 % (2-4); Hematocrit 39.1 % (41-53); Hemoglobin 13.6 g/dL (13.5-17.5); Lymphocytes Absolute Auto 1400 /uL (1100-4500); Lymphocytes Percent Auto 25.5 % (25-40); Mean Corpuscular HGB Conc 34.7 % (30-36); Mean Corpuscular Hemoglobin 31.8 PG (26-34); Mean Corpuscular Volume 91.4 fL (80-100); Monocytes Absolute Auto 300 /uL (0-900); Monocytes Percent Auto 5.4 % (3-14); Neutrophils Absolute Auto 3700 /uL (1500-7000); Neutrophils Percent Auto 67.9 % (50-75); Platelet Count 52 X10^3/uL (150-400); Red Blood Cell Count 4.27 X10^6/uL (4.5-5.9); Red Cell Distribution Width 14.6 % (11.6-14.8); White Blood Cell Count 5.4 X10^3/uL (4.5-11.0)
[2021-02-25 05:48] LABS: BUN Creatinine Ratio 35.8 (6-22); Blood Urea Nitrogen 19 mg/dL (9-20); Calcium 9.3 mg/dL (8.4-10.2); Carbon Dioxide 30 mmol/L (22-32); Chloride 105 mmol/L (98-107); Estimated Glomerular Filt Rate > 60.0 mL/min (>60); Glucose 162 mg/dL (80-110); HEMOLYSIS < 15 (0-50); Magnesium 2.2 mg/dL (1.6-2.3); Potassium 3.1 mmol/L (3.4-5.1); Sodium 140 mmol/L (137-145)
[2021-02-25] MEDS: PANTOPRAZOLE DR 20 MG TABLET PO (08:30)
[2021-02-25] MEDS: EZETIMIBE 10 MG TABLET PO (08:30)
[2021-02-25] MEDS: LACTULOSE 20 GM/30 ML SOLUTION PO ×3 (08:30→22:39)
[2021-02-25] MEDS: BUDESONIDE 3 MG CAP PO ×2 (08:31→22:44)
[2021-02-25] MEDS: INSULIN LISPRO 100 UNIT/ML 3ML VIAL SUBCUT ×4 (08:31→22:39)
[2021-02-25] MEDS: ASPIRIN EC 81 MG TABLET PO (08:34)
[2021-02-25] MEDS: MESALAMINE 800 MG TABLET.DR 2400 MG PO ×2 (08:59→22:40)
--- NOTE | 2021-02-25 11:25 | PT-IP ANOTE ---
Pt refused stating he just returned to bed and does not want to ambulate with the IV. Will check back with pt this afternoon.
--- NOTE | 2021-02-25 11:59 | PT.IPTN ---
Current Diagnoses Obstructive sleep apnea (adult) (pediatric) (02/23/21) Physical Therapy Treatment Note M2 PT-IP Current Condition Start: 02/23/21 14:53 Freq: NEEDED Status: Active Protocol: Document 02/23/21 15:38 AW (Rec: 02/23/21 16:26 AW [id number]) Physical Therapy Current Condition Current Condition Evaluation Date 02/23/21 Treatment Diagnosis acute encephalopathy, confusion; impaired mobility. Onset Date 02/22/21 Precautions Other Precautions falls risk M3 PT-IP Subjective Start: 02/23/21 14:53 Freq: NEEDED Status: Active Protocol: Document 02/25/21 11:42 CLB (Rec: 02/25/21 13:06 CLB [id number]) Subjective Physical Therapy Visit Type Type Treatment Note Visit Start Time 11:42 Visit Stop Time 11:59 Total Visit Minutes 17 Number of SCIENTIFIC PROGRAMMER ANALYST Visits 1 Physical Therapy Visit Comments Patient Comments pt is agreeable to do PT Therapy Pain Assessment Pain Present Pain Present Denied Pain M4 PT-IP Mobility and Gait Start: 02/23/21 14:53 Freq: NEEDED Status: Active Protocol: Document 02/25/21 11:42 CLB (Rec: 02/25/21 13:06 CLB [id number]) PT-Bed Mobility Assessment Supine to Sit Supine to Sit Standby Assistance PT-Transfer Assessment Sit to and From Stand Sit to and from Stand Standby Assistance,Contact Guard Assistance,1 Person Assistance,Use of Upper Extremities Equipment Transfer Assistive Device Gait Belt,Front Wheeled Walker Orthotic/Prosthetic Devices or Brace: No Transfers Transfer Destination Bed,Chair Transfer Technique Stand Step Pivot Transfer Ability Level of Assist Standby Assistance,Contact Guard Assistance,1 Person Assistance,Use of Upper Extremities Comments Mobility Comments Pt in bed able to complete bed mobility SBA, pt stood CGA and ambulated in cas[place] ~75ft to therapy stairs. Pt climbed three steps with bilateral rails SBA using step over step . Pt cued to take deep breaths after stair climbing. [facility] to room 225 and back to his room ~400ft w/FWW/SBA. Pt returned to room sitting on EOB with O2 sat increased to ~ 90-92% > 1min. Pt then stood from bed SBA and ambulated to toilet. Pt given call light and COMPUTER SYSTEMS ANALYST informed pt on toilet. Gait Assessment Gait Gait Assistance Required: Contact Guard Assist Distance (Feet) 400 Assistive Devices Assistive Device Gait Belt,Front Wheeled Walker Orthotic/Prosthetic Devices or Brace: No Gait Deviations General Gait Pattern Decreased Stride Length, Decreased Feet Clearance Factors Limiting Gait Function Factors Limiting Gait Function Decreased Activity Tolerance, Decreased Strength,Poor Balance,Poor Safety Awareness, Respiratory Distress Comments Gait Comments Pt requiring CGA then SBA for remainder of ambulation but required cues to watch obstacles on left side. Stair Climbing Assessment Evaluation Level of Assist On Stairs Standby Assistance,1 Person Assistance Devices Stair Climbing Assistive Devices Left Railing,Right Railing Technique/Endurance Stair Climbing Direction Ascend and Descend Stair Climbing Technique Step Over Step Number of Steps Climbed 3 Stair Climbing Set # Repetitions (reps) 1 M5 PT-IP Objective Assessments Start: 02/23/21 14:53 Freq: NEEDED Status: Active Protocol: Document 02/23/21 15:38 AW (Rec: 02/23/21 16:26 AW [id number]) Orientation Orientation/Cognition Level of Alertness Confusional State Orientation Name,Year,Day of Week,Place, Situation Language Function Ability Word Finding Difficulties Safety Awareness Decreased Safety Awareness Memory Description Short Term Impaired,Retirement Impaired Gross Range of Motion Lower Extremity ROM Assessment Within Functional Limits Strength Lower Extremity Strength Assessment Within Functional Limits Hip 4+/5 Knee 5/5 Comments Strength Comments Strength WFL on MMT but easily fatigued in gait Coordination Assessment Gross Coordination Gross Coordination Impaired Assessment Finger to Nose Test LUE impaired with missed targets 2 cm Pronation/Supination Test Normal Performance Foot Tapping Test Normal Performance Coordination Comments Pt had difficulty following instructions for UE coordination testing. He followed direction with RUE but then touched his shoulder instead of his nose with LUE. When provided further demontration, pt continued to miss targets by ~2 cm Sensation Assessment Sensation Gross Sensation Right LE Impaired,Left LE Impaired Light Touch Impaired Proprioception (Position) Impaired Sensation Description Numbness Comments Sensation Comments Peripheral neuropathy affects bilateral feet with toes and midfoot more affected than hindfoot/ankle. Muscle Tone Muscle Tone WNL Yes M6 PT-IP Treatment Start: 02/23/21 14:53 Freq: NEEDED Status: Active Protocol: Document 02/25/21 11:42 CLB (Rec: 02/25/21 13:06 CLB [id number]) Physical Therapy Treatment Education Education Provided Safety M7 PT-IP Assessment and Plan Start: 02/23/21 14:53 Freq: NEEDED Status: Active Protocol: Document 02/25/21 11:42 CLB (Rec: 02/25/21 13:06 CLB [id number]) PT Summary Assessment and Plan Potential Rehabilitation Potential Good Summary Impairments Pain,ROM,Strength,Balance, Coordination,Sensation, Cognition,Bed Mobility, Transfers,Gait,Activity Tolerance Assessment Summary Pt with increased activity tolerance able to ambulate ~ 400ft w/FWW/SBA. O2 sat increased to ~ 91-93% >1min with PLB. Pt will benefit from SNF rehab to improve overall strength and mobility independence. Goals Bed Mobility Goal Independent Transfer Goal Independent,Front Wheeled Walker Gait Goal Independent,Front Wheel Walker Gait Distance 300 Other Goals - up/down 4 steps with R rail SBA Days to Meet Goals 5 Frequency of Treatment Frequency Of Treatment Once a Day Treatment Plan Physical Therapy Treatment Plan Bed Mobility Training,Transfer Training,Gait Training, Therapeutic Exercise,Balance Retraining,Discharge Planning, Hot or Cold Pack,Neuromuscular Re-ed,Coordination Retraining Other Recommendations and Next Treatment ambulation with focus on Focus safety. Precautions Other Precautions falls Recommendations To Nursing Amount of Assist Needed 1 Person Assist Discharge Recommendations PT Discharge Recommendations SNF Rehab Transportation Needs at Discharge Private Vehicle
--- NOTE | 2021-02-25 13:03 | OT.IP.TRT ---
Current Diagnoses Obstructive sleep apnea (adult) (pediatric) (02/23/21) Occupational Therapy Treatment Note M2 OT-IP Current Condition Start: 02/24/21 12:18 Freq: Status: Active Protocol: Document 02/24/21 10:55 [facility] (Rec: 02/24/21 12:42 [facility] [id number]) Occupational Therapy Current Condition Current Condition Evaluation Date 02/24/21 Treatment Diagnosis Acute toxic encephalopathy, decreased mobility and confusion Diagnosis Onset Date 02/23/21 M3 OT- IP Subjective and Pain Start: 02/24/21 12:18 Freq: Status: Active Protocol: Document 02/25/21 13:06 CGR (Rec: 02/25/21 13:14 CGR [id number]) OT- Subjective Occupational Therapy Visit Type Type Progress Note Visit Start Time 12:40 Visit Stop Time 13:03 Total Visit Minutes 23 Notes Pt requesting shower. OT Pain Assessment Pain When Pain Assessed At Rest Pain Present Pain Present Denied Pain M4 OT- IP ADL's Start: 02/24/21 12:18 Freq: Status: Active Protocol: Document 02/25/21 13:06 CGR (Rec: 02/25/21 13:14 CGR [id number]) OT [id number] General Evaluation Self-Feeding Ability Independent Comments OT Self-Feeding Comments Lunch prior to shower. OT ADL-Grooming General Evaluation Grooming Ability Standby Assistance Areas Needing Assistance Face Washing Comments OT Grooming Comments standing at sink OT ADL-Oral Care General Eval Oral Care Ability Standby Assistance Areas of Assistance Brushing Teeth Comments Oral Care Comments standing at sink OT ADL-Dressing General Eval Upper Body Dressing Ability Independent Lower Body Dressing Ability Independent Areas Needing Assistance Retrieving/Set-up of Clothing, Underpants/Brief,Socks Comments OT Dressing Comments Hospital gown, socks, and underwear. OT ADL-Toileting Comments OT Toileting Comments not performed OT ADL-Bathing Bathing Type Bathing Type Shower General Evaluation Bathing Ability Standby Assistance Areas Needing Assistance Retrieving/Setting Up Items Devices Bathing Equipment Hand Held Shower Sprayer, Shower Chair with Arms Comments OT Bathing Comments Pt performed shower seated. M5 OT- IP IADL's Start: 02/24/21 12:18 Freq: Status: Active Protocol: Document 02/24/21 10:55 [facility] (Rec: 02/24/21 12:42 [facility] [id number]) OT-Instrumental Activities of Daily Living Medication Management Medication Management Caregiver Administers Money Management Money Management Caregiver Provides Assistance Meal Preparation Meal Preparation Caregiver Provides Assist Cook Dinner Cook Dinner Caregiver Provides Assist Driving Driving Caregiver Provides Assist Driving Comments Pt states has given up driving at this time. M6 OT- IP Functional Cognition Start: 02/24/21 12:18 Freq: Status: Active Protocol: Document 02/25/21 13:06 CGR (Rec: 02/25/21 13:14 R [id number]) Cognitive Factors Limiting Selfcare Function Cognitive Ability Level of Alertness Alert,Confusional State Attention Span Ability Unable to Focus,Unable to Sustain Attention Ability to Follow Commands Able to Follow One Step Commands with Increased Time, Able to Follow One Step Commands with Repetition M7 OT- IP Mobility and Balance Start: 02/24/21 12:18 Freq: Status: Active Protocol: Document 02/25/21 13:06 CGR (Rec: 02/25/21 13:14 R [id number]) OT-Transfer Assessment Sit to and From Stand Sit to and from Stand Standby Assistance Transfers Transfer Ability Standby Assistance Technique Transfer Destination Chair,Shower Stall Transfer Technique Stand Step Pivot Devices Transfer Assistive Devices Gait Belt,Front Wheeled Walker Comments Mobility Comments Mobility around the room. OT- Balance Assessment Sitting Balance and Reactions Static Sitting Balance Ability Normal Dynamic Sitting Balance Ability Good M8 OT- IP Objective Assessments Start: 02/24/21 12:18 Freq: Status: Active Protocol: Document 02/24/21 10:55 [facility] (Rec: 02/24/21 12:42 [facility] [id number]) OT Gross Range of Motion Upper Extremity Range of Motion Assessment Within Functional Limits OT Strength Upper Extremity Strength Assessment Within Functional Limits OT- Coordination Assessment Upper Extremity Finger to Nose Test Left UE Impaired Comments Coordination Comments Left hand slightly off for finger to nose. OT-Muscle Tone Assessment Muscle Tone WNL Yes M9 OT- IP Assessment and Plan Start: 02/24/21 12:18 Freq: Status: Active Protocol: Document 02/25/21 13:06 CGR (Rec: 02/25/21 13:14 R [id number]) OT Summary Assessment and Plan Potential Rehabilitation Potential Good Analytic Complexity at Evaluation Moderate Summary OT Impairments Balance,Functional Cognition, Functional Mobility,Grooming, Dressing,Toileting,Bathing, Toilet Transfers,Shower Transfers,Activity Tolerance Progress Towards Goals Slow Progress due to Medical Issues,Slow Progress due to Activity Tolerance Assessment Summary Pt is progressing with therapy on this date with increased endurance, ADLs and functional mobility. Pt very appreciative of shower and requests to get back to chair at end of session. Pt left sitting up in chair with call button within reach and all needs at time met. Chair fall alarm armed. Goals Self-Feeding Goal Independent Grooming Goal Independent Dressing Goal Independent Toileting Goal Independent Bathing Goal Independent Toilet Transfer Goal Independent Shower Transfer Goal Independent Days to Meet Goals 10 Frequency of Treatment Frequency Of Treatment Once a Day Treatment Plan OT Treatment Plan ADL Training,Functional Cognition Training,Functional Mobility,Patient/Family Education,Discharge Planning Other Treatment Recommendations and Next shower Treatment Focus Discharge Recommendations OT Discharge Recommendations Home with 08/04 Assist Available,SNF Rehab Transportation Needs at Discharge Private Vehicle,Wheelchair/ Cabulance
--- NOTE | 2021-02-25 13:50 | PM.PN.1 ---
Subjective Subjective Date Patient Seen: 02/25/21 Time Patient Seen: 13:50 Interval history: No complaints today, no chest pain, nausea, vomiting. Exam Vital Signs (past 8 hours): - 02/25/21 08:00 02/25/21 09:11 02/25/21 11:40 Temperature 97.2 F L 97.9 F Pulse Rate 70 83 Respiratory Rate 18 18 Blood Pressure 138/66 141/79 H Pulse Oximetry 92 93 92 Oxygen Delivery Method Room Air Oxygen Flow Rate 0 Narrative Exam Narrative: Gen: Alert, oriented, well-developed 70 y.o. male, NAD HEENT: normocephalic, atraumatic, conjunctiva clear, sclera non-icteric, oral mucosa pink and moist Neck: supple, full ROM, no JVD, trachea is midline Resp: Lungs CTA, non-labored breathing CV: RRR, no murmur or rubs, no carotid bruits Abd: soft, non-tender, hyperactive BTs Skin: no lesions or rashes, dry and intact Neuro: Alert and oriented X 4 w/no focal deficits. Speech clear and coherent with occassional word finding difficulties. Cranial nerves 2-12 intact bilaterally Extremities: moves all 4 extremities, is ambulatory, negative Sarmad?s sign Psyche: normal mood and affect. Objective Labs Result Diagrams: 02/25/21 05:14 02/25/21 05:14 Labs: Laboratory Results - last 24 hr 02/25/21 02/25/21 05:14 05:14 WBC 5.4 RBC 4.27 L Hgb 13.6 Hct 39.1 L MCV 91.4 MCH 31.8 MCHC 34.7 RDW 14.6 Plt Count 52 L Neut % (Auto) 67.9 Lymph % (Auto) 25.5 [place] % (Auto) 5.4 Eos % (Auto) 0.5 L Baso % (Auto) 0.7 Neut # (Auto) 3700 Lymph # (Auto) 1400 [place] # (Auto) 300 Eos # (Auto) 0 Baso # (Auto) 0 Sodium 140 Potassium 3.1 L Chloride 105 Carbon Dioxide 30 BUN 19 Creatinine 0.53 L Estimated GFR > 60.0 BUN/Creatinine Ratio 35.8 H Glucose 162 H Calcium 9.3 Magnesium 2.2 PFSH Medical History Carotid bruit (08/06/11) Congestion of both ears Diaphragmatic hernia (08/06/11) Diverticulosis (08/06/11) Emphysema lung Insomnia, persistent Mass of lower lobe of left lung Muscle strain of left lower leg Obstructive sleep apnea of adult (~08/06/11) Snoring Surgical History History of angioplasty History of angioplasty Status post arthroscopy Family History Brother Heart disease High cholesterol Brother Age: 76 High cholesterol Father Heart disease Diabetes mellitus High cholesterol Mother Diabetes mellitus Heart disease High cholesterol Sister Age: 67 High cholesterol Social History household members: spouse and other Smoking Status: Former smoker Tobacco: How many years used: 44 alcohol intake: current substance use type: former substance user and marijuana Assessment & Plan Assessment & Plan narrative: 70M with PMH CAD status post multiple stents, Crohn's disease, emphysema, left lower lobe mass, Fatty Liver, non insulin-dependent type 2 diabetic who presented to the emergency room with worsening confusion. This is his 3rd admission for such, previously with hyponatremia, presumed hepatic encephalopathy, not seemingly improved. Differential is included below. 1. Acute Toxic Metabolic encephalopathy, acute, present on admission, improving -MRI showed no stroke or other acute abnormality. -differential includes hepatic encephalopathy, carnitine deficiency, steroid induced delirium, psychiatric source given hallucinations. -PT/OT evaluations appreciated, recommended for SNF. carnitine levels sent out, unknown timing for results. receiving L-carnitine IV, can continue oral as an outpatient. -continue lactulose, titrate to 3-5 BMs daily. -reduced budesonide to 3 mg BID, still needs prolonged taper given crohn's disease. 2. Crohn's disease, chronic, not present on admission -continue home medications of mesalamine and budesonide but reduced dosing to 3 mg BID instead of 6 given possible steroid induced encephalopathy. both non-formulary will have to have family bring in. 3. Emphysema, chronic, not present on admission -patient does not appear to be on any inhalers. No respiratory symptoms at this time, continue to monitor. Emphysema was seen on his recent CT that revealed his left lower lobe mass. 4. Non insulin-dependent type 2 diabetes, acute on chronic, present on admission, uncontrolled -as evidence by a glucose of 143 on admit, - start sliding scale patient reports good control on low dose metformin. - hold metformin, on 02/14/2021 A1c was 5.6% 5. History of CAD, chronic, not present on admission - continue home asa and statin. 6. Left lower lobe lung mass - outpatient workup, rescheduled biopsy at [facility] on 03/06/21. -noted patient has had a BMI decrease from 30.7 on 11/30/2020 to today's admit 26.3 7. Fatty liver disease possibly cirrhosis, acute on chronic, present on admission 8. 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 Increased to 1200 cc from 800 given patient complaints. will watch sodium levels. Still okay today. 9. hypokalemia - will replete today. Code Status : Full Code Surrogate decision maker: patient's COVID PCR: Negative MRSA nasal swab of: Positive DVT/VTE prophylaxis: Lovenox daily. Dispo: plan for SNF tomorrow. Quality VTE Deep Vein Thrombosis/Pulmonary Embolism Present on Admission: No
[2021-02-25] MEDS: POTASSIUM CHLORIDE 20 MEQ/15 ML UDC 40 MEQ PO (14:01)
--- NOTE | 2021-02-25 20:38 | DI.CT.S_ITS ---
PROCEDURE: CT HEAD/BRAIN WO CON INDICATIONS: LOC TECHNIQUE: Noncontrast 4.5 mm thick angled axial sections acquired from the foramen magnum to the vertex, with coronal and sagittal reformats. For radiation dose reduction, the following was used: automated exposure control, adjustment of mA and/or kV according to patient size. COMPARISON: [facility], CT, CT HEAD/BRAIN WO CON, 02/17/2021, 22:39. FINDINGS: Image quality: Excellent. CSF spaces: Basal cisterns are patent. No extra-axial fluid collections. The ventricles are symmetric in size and shape. Brain: No intracranial bleeds or masses. There is cerebral volume loss for age, with resultant ventricular and sulcal prominence. There are periventricular and deep white matter chronic small vessel ischemic changes. There is intracranial internal carotid artery atherosclerosis. Skull and face: Calvarium and visualized facial bones appear intact, without suspicious lesions. Sinuses: Visualized sinuses and mastoids are clear. IMPRESSION: 1. No acute intracranial abnormalities. 2. Cerebral volume loss and chronic microvascular ischemic changes. The result was discussed with Miriam Spring on 02/25/2021 at 2103 hours. Dictated by: Gaby Rashid M.D. on 02/25/2021 at 21:00 Approved by: Gaby Rashid M.D. on 02/25/2021 at 21:11
--- NOTE | 2021-02-25 20:44 | DI.CT.S_ITS ---
PROCEDURE: CT ANGIO HEAD AND NECK INDICATIONS: LOC TECHNIQUE: After the administration of intravenous contrast, 1 mm thick sections acquired from the aortic arch through the [place]. Post-contrast 4.5 mm thick sections then re-acquired from the foramen magnum to the vertex. 3-dimensional lebzowm-[id number]-iqvfbmjbwv (MIP) and/or volume rendering reformats were acquired of the central intracranial vasculature and neck separately. COMPARISON: [facility], DE, PET NECK TO MID THIGH, 01/31/2021, 9:23. [facility], MR, MR STROKE, 02/18/2021, 7:36. [facility], MR, MR HEAD/BRAIN WO/W CON, 02/23/2021, 10:23. [facility], CT, CT HEAD/BRAIN WO CON, 02/25/2021, 20:44. FINDINGS: Image quality: Excellent. BRAIN: CSF spaces: Ventricles are normal in size and shape. Basal cisterns are patent. No extra-axial fluid collections. Brain: No midline shift. No intracranial bleeds or masses. Ten[place]-white matter interface appears intact. Skull and face: Calvarium and facial bones appear intact, without suspicious lesions. Orbits appear normal. Sinuses: Sinuses and mastoids are clear. HEAD CT ANGIOGRAPHY: Anterior circulation: Intracranial internal carotid arteries are normal in size and flow. The flow within the paired anterior cerebral arteries is normal and symmetric. The flow within the middle cerebral arteries is normal and symmetric. The anterior communicating artery is seen. No aneurysms are seen. Posterior circulation: Visualized portions of the vertebral arteries demonstrate normal caliber, and join to form a normal appearing basilar artery. Flow within the posterior cerebral arteries is normal and symmetric. No aneurysms are seen. NECK CT ANGIOGRAPHY: Carotid system: The great vessels demonstrate a conventional anatomy as they arise from the aortic arch. The origins of the common carotid arteries appear patent. The common carotid arteries demonstrate normal caliber and courses. The bifurcation regions are both widely patent. The internal carotid arteries demonstrate normal calibers and courses. Posterior circulation: The origins of the vertebral arteries both appear widely patent. The more superior extracranial portions of both vertebral arteries also demonstrate normal courses and calibers. They join to form a normal appearing basilar artery. Soft tissues: Visualized neck soft tissues demonstrate no suspicious abnormalities. Moderate emphysema. Mildly enlarged mediastinal lymph nodes are identified. There is a 1.1 cm right paratracheal lymph node and a 1.2 cm AP window lymph node. Bones: No suspicious bony lesions. Visualized cervical spine appears normally aligned. IMPRESSION: 1. No acute intracranial abnormalities. 2. No hemodynamic significant stenosis in anterior or posterior circulations. 3. No hemodynamic significant stenosis in cervical carotid arteries or vertebral arteries bilaterally. 4. Mildly enlarged mediastinal lymph nodes are present. Any quantitative measurements of stenosis were performed using NASCET criteria. Dictated by: Gaby Rashid M.D. on 02/25/2021 at 21:49 Approved by: Gaby Rashid M.D. on 02/25/2021 at 21:56
[2021-02-25 20:47] LABS: Add Manual Diff / Slide Review NO; Basophils Absolute Auto 100 /uL (0-100); Basophils Percent Auto 0.9 % (0-2); Eosinophils Absolute Auto 0 /uL (0-450); Eosinophils Percent Auto 0.4 % (2-4); Hematocrit 41.1 % (41-53); Hemoglobin 14.4 g/dL (13.5-17.5); Lymphocytes Absolute Auto 1300 /uL (1100-4500); Lymphocytes Percent Auto 16.8 % (25-40); Mean Corpuscular HGB Conc 35.1 % (30-36); Mean Corpuscular Volume 91.3 fL (80-100); Monocytes Absolute Auto 400 /uL (0-900); Monocytes Percent Auto 5.8 % (3-14); Neutrophils Absolute Auto 5700 /uL (1500-7000); Neutrophils Percent Auto 76.1 % (50-75); Platelet Count 56 X10^3/uL (150-400); Red Blood Cell Count 4.51 X10^6/uL (4.5-5.9); Red Cell Distribution Width 15.1 % (11.6-14.8); White Blood Cell Count 7.5 X10^3/uL (4.5-11.0)
[2021-02-25 20:54] LABS: BUN Creatinine Ratio 30.5 (6-22); Blood Urea Nitrogen 18 mg/dL (9-20); Calcium 9.4 mg/dL (8.4-10.2); Carbon Dioxide 28 mmol/L (22-32); Chloride 103 mmol/L (98-107); Creatine Kinase 88 U/L (55-170); Estimated Glomerular Filt Rate > 60.0 mL/min (>60); Glucose 223 mg/dL (80-110); HEMOLYSIS < 15 (0-50); Lactate (Lactic Acid) 2.7 mmol/L (0.7-2.1); Potassium 3.2 mmol/L (3.4-5.1); Sodium 140 mmol/L (137-145)
[2021-02-25 21:06] LABS: Troponin I 0.022 ng/mL (0.01-0.034)
[2021-02-25] MEDS: METOPROLOL TARTRATE 5 MG/5 ML INJ IV (21:30)
[2021-02-25 21:34] LABS: Ammonia (NH3) 36 umol/L (9-30)
[2021-02-25 21:50] LABS: Alanine Aminotransferase 195 IU/L (<50); Albumin 4.1 g/dL (3.5-5.0); Albumin Globulin Ratio 1.1 (1.0-2.8); Alkaline Phosphatase 119 U/L (38-126); Aspartate Aminotransferase 141 IU/L (17-59); Bilirubin Total 1.9 mg/dL (0.2-1.3); Bilirubin Unconjugated 1.7 mg/dL (0.0-1.1); Globulin 3.6 g/dL (1.7-4.1); HEMOLYSIS < 15 (0-50); Total Protein 7.7 g/dL (6.3-8.2)
--- NOTE | 2021-02-25 21:51 | PM.EVENT ---
Event Note Date Patient Seen: 02/25/21 Time Patient Seen: 20:35 Event Note: Sage Llanes is a 70-year-old male admitted by me 2 nights ago for acute encephalopathy initially thought to be secondary to an elevated ammonia. The patient is actually due to be discharged to acute rehab in the morning. He has a history of having moments of transient confusion alternating with normal mentation. He was treated for a possible carnitine deficiency and his carnitine levels are pending. At 8:35 p.m. a rapid response was called on the patient. Per his nurse on the floor he had just requested to use the urinal and when she came to the room he was sitting in the chair and staring straight out, nonresponsive and not following instructions. Pupils were pinpoint and when instructed to look at you he would gaze around peripherally. I came into the room and he was moved from from the chair to the bed. A code stroke was called and patient was transported down to the CT scanner. CT scan of the head and a CT angio of the head and neck were both done and both studies were negative. At 2100 his blood pressure was 202/95. And he was ordered for Lopressor 5 mg, this was held due to his systolic blood pressure dropping spontaneously to the 170s. Upon coming out of this CT scan the patient was able to follow directions with gross motor skills including upper and lower extremity arm raise and heel to moore maneuvers. He was able to squeeze your hand. However he was not able to speak. Upon arrival to the room the patient appeared to get very agitated and was essentially voluntarily clamping down and not cooperating with any exam is normal was E responding to Dr. Lopez, the tele stroke neurologist. Due to the put patient's platelet count he would not be a candidate for tPA. I reported the CT head and CT angio of the head neck results to Dr. Lopez, both of which were negative for a CVA. Patient's temperature is 98.0?, blood pressure 202/95, heart rate 87, respiratory rate 24, oxygen saturation of 93% and I believe is a was on 1.5 L. WBC is 7.5, RBC 4.51, hemoglobin 14.4, hematocrit 41.1, platelet count 56, sodium 140, potassium 3.2, chloride 103, CO2 28, BUN 18, creatinine 0.59, GFR is greater than 60, glucose 223, lactate 2.7, total bilirubin 1.9 elevated from prior, AST 141 and elevated from prior, ALT 195 and elevated from prior, ammonia level was 36 lower than prior, troponin is 0.2 2. 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 I have discontinued is l-carnitine infusion as this was 1 of the contraindications to this medication. Patient's carnitine level is still pending. Patient will need to have further assessment in outpatient Neurology and or [facility], possibly undergo EEG testing. Patient became labile and stated to me ?I guess I will feel anything if I am ?. He refused to state if he was depressed. I contacted his in requested that she come in to see him. Apparently this afternoon when she saw me he was emotionally acting similarly. Critical care time: 95 minutes
[2021-02-25] MEDS: SODIUM CHLORIDE 0.9% FLUSH 10 ML IV (22:40)
[2021-02-25 22:44] LABS: Reflexed Lactate in 2 Hours Y
[2021-02-25 23:11] LABS: Lactate 2HR (Lactic Acid Rflx) 2.2 mmol/L (0.7-2.1)
--- NOTE | 2021-02-25 23:52 | PC.NURSE ---
1530 - Patient alert and oriented x4, pleasant in room, no complaints of pain, sitting in chair, vital signs within normal limits. 1700 - Patients at bedside, patient became agitated and was confused about his dinner tray, he was emotional in the room and could not tell me the month, hospitalist notified, he said patient had been having periods of confusion. 1999 - Patient sitting in chair no complaints of pain, pleasant again at this time. 2029 - Patient called out for help with the urinal, this RN assisted patient in using the urinal and afterwards patient was no longer verbally responding to this RN. Patient staring off in a gaze and not following any commands, patients eyes closed, sternal rubbed patient and still no response. Staff assist was called and charge nurse came to bedside and rapid response called, PLANT PROPAGATOR at bedside to check sugar and sugar was elevated, vital signs checked and BP elevated, respiratory therapist at bedside to do EKG, hospitalist at bedside and ordered stat head CT. 2044 - Patient was in CT, code stroke called for patient, after CT patient was able to squeeze this RNs hands and said his name but not responding verbally to any other questions. 2129 - Patient brought back up to room and telestroke doctor was consulted, at this time patient was visibly upset and frowning, attempted to do NIH but patient was not really cooperating with staff for assessment, clenching fists, frowning, and visibly agitated. BP still elevated, hospitalist ordered x1 lopressor iv. Patient on 2L nasal cannula at this time. 2214 - Patient responding verbally and following commands at this time, now pleasant, has no recollection of event, asking to use the urinal, requesting to see , who was called, updated, and came back to bedside. Patient states he feels like he is going to . 220 - Patient has no complaints of pain at this time. Able to swallow without difficulty, took medications without any problem. still at bedside.
[2021-02-26] VITALS (33 sets, daily range): BP systolic 114–177; BP diastolic 56–100; PULSE 65–123; RESP 16–41; TEMP 36.1–36.8; O2SAT 87–95
[2021-02-26 05:25] LABS: Add Manual Diff / Slide Review NO; BUN Creatinine Ratio 34.6 (6-22); Basophils Absolute Auto 0 /uL (0-100); Basophils Percent Auto 0.5 % (0-2); Blood Urea Nitrogen 18 mg/dL (9-20); Calcium 9.3 mg/dL (8.4-10.2); Carbon Dioxide 29 mmol/L (22-32); Chloride 103 mmol/L (98-107); Eosinophils Absolute Auto 0 /uL (0-450); Eosinophils Percent Auto 0.6 % (2-4); Estimated Glomerular Filt Rate > 60.0 mL/min (>60); Glucose 185 mg/dL (80-110); HEMOLYSIS < 15 (0-50); Hematocrit 39.2 % (41-53); Hemoglobin 13.6 g/dL (13.5-17.5); Lymphocytes Absolute Auto 1300 /uL (1100-4500); Lymphocytes Percent Auto 23.2 % (25-40); Magnesium 2.3 mg/dL (1.6-2.3); Mean Corpuscular HGB Conc 34.8 % (30-36); Mean Corpuscular Hemoglobin 31.8 PG (26-34); Mean Corpuscular Volume 91.4 fL (80-100); Monocytes Absolute Auto 300 /uL (0-900); Neutrophils Absolute Auto 3800 /uL (1500-7000); Neutrophils Percent Auto 69.7 % (50-75); Platelet Count 50 X10^3/uL (150-400); Red Blood Cell Count 4.29 X10^6/uL (4.5-5.9); Red Cell Distribution Width 14.1 % (11.6-14.8); Sodium 139 mmol/L (137-145); White Blood Cell Count 5.5 X10^3/uL (4.5-11.0)
[2021-02-26] MEDS: POTASSIUM CHLORIDE 20 MEQ TAB 40 MEQ PO (07:08)
[2021-02-26] MEDS: POTASSIUM CHLORIDE IN WATER 10 MEQ/100 ML PIGGYBACK 100 MEQ IV ×4 (07:09→13:16)
--- NOTE | 2021-02-26 08:17 | DI.US.S_ITS ---
PROCEDURE: US ABDOMEN LIMITED INDICATIONS: RISING LIVER FUNCTION TESTS AND BILIRUBIN. TECHNIQUE: Real-time focused scanning was performed of the abdomen, with image documentation. COMPARISON: [facility], US, US ABDOMEN LIMITED, 02/15/2021, 7:55. FINDINGS: A coarse liver echotexture is again seen, which is consistent with the given history. No focal liver lesions are seen. The liver demonstrates increased echogenicity which limits evaluation for masses, however. The main portal vein demonstrates normal size and demonstrates normal appearing, hepatopetal flow. No findings of gallstones or sludge are seen. The gallbladder wall is not thickened, measuring 3 mm or less. No specific pericholecystic fluid is seen. The sonographic Santamaria sign is negative. There is no biliary dilatation, the common bile duct measures 2 mm. No significant pancreatic abnormality is seen on these images. The spleen is enlarged, measuring 15.8 cm, with a calculated volume 1033 cc. IMPRESSION: Liver cirrhosis with splenomegaly. Dictated by: Antonio Celis M.D. on 02/26/2021 at 16:25 Approved by: Antonio Celis M.D. on 02/26/2021 at 16:26
[2021-02-26] MEDS: MESALAMINE 800 MG TABLET.DR 2400 MG PO ×2 (08:41→20:55)
[2021-02-26] MEDS: ASPIRIN EC 81 MG TABLET PO (08:41)
[2021-02-26] MEDS: PANTOPRAZOLE DR 20 MG TABLET PO (08:41)
[2021-02-26] MEDS: METOPROLOL ER 25 MG TABLET PO (08:41)
[2021-02-26] MEDS: LACTULOSE 20 GM/30 ML SOLUTION PO ×3 (08:42→20:55)
[2021-02-26] MEDS: SODIUM CHLORIDE 0.9% FLUSH 10 ML IV ×3 (08:42→20:56)
[2021-02-26] MEDS: EZETIMIBE 10 MG TABLET PO (08:42)
[2021-02-26] MEDS: BUDESONIDE 3 MG CAP PO ×2 (08:43→20:53)
[2021-02-26] MEDS: INSULIN LISPRO 100 UNIT/ML 3ML VIAL SUBCUT ×4 (08:44→20:50)
--- NOTE | 2021-02-26 11:34 | DI.RAD.S_ITS ---
PROCEDURE: XR CHEST 1V INDICATIONS: hypoxia, ? aspiration TECHNIQUE: One view of the chest was acquired. COMPARISON: [facility], CR, XR CHEST 1V, 02/22/2021, 19:46. [facility], CR, XR CHEST 1V, 02/18/2021, 10:52. FINDINGS: Surgical changes and devices: None. Lungs and pleura: Lungs are edematous. No pleural effusions or pneumothorax. Mediastinum: Mediastinal contours appear normal. Heart size is at upper limits of normal. Bones and chest wall: No suspicious bony lesions. Overlying soft tissues appear unremarkable. IMPRESSION: Mild edema pattern, suspect cardiogenic origin. Interstitial prominence has been previously present in this patient and it remains possible that this is a manifestation of interstitial lung disease or atypical/viral pneumonia. Dictated by: Arthur Guillen M.D. on 02/26/2021 at 14:56 Approved by: Arthur Guillen M.D. on 02/26/2021 at 14:56
--- NOTE | 2021-02-26 12:05 | PT.IPTN ---
Current Diagnoses Obstructive sleep apnea (adult) (pediatric) (02/23/21) Physical Therapy Treatment Note M2 PT-IP Current Condition Start: 02/23/21 14:53 Freq: NEEDED Status: Active Protocol: Document 02/23/21 15:38 AW (Rec: 02/23/21 16:26 AW [id number]) Physical Therapy Current Condition Current Condition Evaluation Date 02/23/21 Treatment Diagnosis acute encephalopathy, confusion; impaired mobility. Onset Date 02/22/21 Precautions Other Precautions falls risk M3 PT-IP Subjective Start: 02/23/21 14:53 Freq: NEEDED Status: Active Protocol: Document 02/26/21 11:53 LJ (Rec: 02/26/21 12:05 LJ [id number]) Subjective Physical Therapy Visit Type Type Treatment Note Visit Start Time 11:13 Visit Stop Time 11:45 Total Visit Minutes 32 Number of SENIOR MAINTENANCE MECHANIC Visits 2 Physical Therapy Visit Comments Patient Comments pt is agreeable to do PT Therapy Pain Assessment Pain Present Pain Present Denied Pain M4 PT-IP Mobility and Gait Start: 02/23/21 14:53 Freq: NEEDED Status: Active Protocol: Document 02/26/21 11:53 LJ (Rec: 02/26/21 12:05 LJ [id number]) PT-Bed Mobility Assessment Rolling Type of Rolling Roll to Left Level of Assist Standby Assistance Supine to Sit Supine to Sit Standby Assistance Sit to Supine Sit to Supine Standby Assistance Scooting Scooting to Edge of Bed Standby Assistance Scooting Up and Down in Bed Standby Assistance PT-Transfer Assessment Sit to and From Stand Sit to and from Stand Standby Assistance,1 Person Assistance,Use of Upper Extremities Equipment Transfer Assistive Device Gait Belt,Front Wheeled Walker Orthotic/Prosthetic Devices or Brace: No Transfers Transfer Destination Bed,Toilet Transfer Technique Stand Step Pivot Transfer Ability Level of Assist Standby Assistance,1 Person Assistance,Use of Upper Extremities Comments Mobility Comments Pt SBA for all bed mobility and transfers. Pt ambulated to toilet SBA and assist with IV and O2 lines. Pt then ambulated in hallway~400' using FWW with assist with IV and O2. No LOB or navigation porblems during ambulation. Pt able to carry on conversation during ambulation without SOB . Post ambulation, O2 at 93% on 2L. Pt returned to bed SBA and positioned himself back in bed without assist. in room with pt. Left pt in room with LANDSCAPING CREW LEADER. Gait Assessment Gait Gait Assistance Required: Standby Assistance Distance (Feet) 400 Assistive Devices Assistive Device Gait Belt,Front Wheeled Walker Orthotic/Prosthetic Devices or Brace: No Gait Deviations General Gait Pattern Decreased Stride Length, Decreased Feet Clearance Factors Limiting Gait Function Factors Limiting Gait Function Decreased Activity Tolerance, Decreased Strength,Poor Balance,Poor Safety Awareness, Respiratory Distress Comments Gait Comments Pt SBA for ambulation without incident or SOB. M5 PT-IP Objective Assessments Start: 02/23/21 14:53 Freq: NEEDED Status: Active Protocol: Document 02/23/21 15:38 AW (Rec: 02/23/21 16:26 AW [id number]) Orientation Orientation/Cognition Level of Alertness Confusional State Orientation Name,Year,Day of Week,Place, Situation Language Function Ability Word Finding Difficulties Safety Awareness Decreased Safety Awareness Memory Description Short Term Impaired,Municipal Clerk Impaired Gross Range of Motion Lower Extremity ROM Assessment Within Functional Limits Strength Lower Extremity Strength Assessment Within Functional Limits Hip 4+/5 Knee 5/5 Comments Strength Comments Strength WFL on MMT but easily fatigued in gait Coordination Assessment Gross Coordination Gross Coordination Impaired Assessment Finger to Nose Test LUE impaired with missed targets 2 cm Pronation/Supination Test Normal Performance Foot Tapping Test Normal Performance Coordination Comments Pt had difficulty following instructions for UE coordination testing. He followed direction with RUE but then touched his shoulder instead of his nose with LUE. When provided further demontration, pt continued to miss targets by ~2 cm Sensation Assessment Sensation Gross Sensation Right LE Impaired,Left LE Impaired Light Touch Impaired Proprioception (Position) Impaired Sensation Description Numbness Comments Sensation Comments Peripheral neuropathy affects bilateral feet with toes and midfoot more affected than hindfoot/ankle. Muscle Tone Muscle Tone WNL Yes M6 PT-IP Treatment Start: 02/23/21 14:53 Freq: NEEDED Status: Active Protocol: Document 02/26/21 11:53 ALEXANDER (Rec: 02/26/21 12:05 ALEXANDER [id number]) Physical Therapy Treatment Education Education Provided Safety M7 PT-IP Assessment and Plan Start: 02/23/21 14:53 Freq: NEEDED Status: Active Protocol: Document 02/26/21 11:53 ALEXANDER (Rec: 02/26/21 12:05 ALEXANDER [id number]) PT Summary Assessment and Plan Potential Rehabilitation Potential Good Summary Impairments Pain,ROM,Strength,Balance, Coordination,Sensation, Cognition,Bed Mobility, Transfers,Gait,Activity Tolerance Assessment Summary Pt SBA for all bed mobility and ambulation with FWW. On 2L O2, pt remained at 94% post- 400' ambulation. He will benefit from SNF rehab to improve strength, mobility, and increased independence. Goals Bed Mobility Goal Independent Transfer Goal Independent,Front Wheeled Walker Gait Goal Independent,Front Wheel Walker Gait Distance 300 Other Goals - up/down 4 steps with R rail SBA Days to Meet Goals 5 Frequency of Treatment Frequency Of Treatment Once a Day Treatment Plan Physical Therapy Treatment Plan Bed Mobility Training,Transfer Training,Gait Training, Therapeutic Exercise,Balance Retraining,Discharge Planning, Hot or Cold Pack,Neuromuscular Re-ed,Coordination Retraining Other Recommendations and Next Treatment ambulation with focus on Focus safety. Precautions Other Precautions falls Recommendations To Nursing Amount of Assist Needed 1 Person Assist Discharge Recommendations PT Discharge Recommendations SNF Rehab Transportation Needs at Discharge Private Vehicle
--- NOTE | 2021-02-26 12:27 | P.PN_ITS ---
Subjective Subjective Date Patient Seen: 02/26/21 Time Patient Seen: 11:30 Interval history: This is a 70-year-old male admitted for recurrent encephalopathy. He was planned for discharge to retirement facility today, however yesterday evening he had an episode where he briefly was nonresponsive, code stroke was called, and patient soon regained of consciousness but was confused and agitated. CT head and CT angiogram was unremarkable. No over etiology was found. Repeat labs were done and his ammonia had improved since admission. His liver enzymes are mildly elevated compared to admission. He has had multiple MRIs without any mass including dedicated MRI with contrast just 3 days ago. There are case reports of complex partial seizures leading to acute delirium such as this. I have started him on low-dose Keppra today as a precaution and he will be monitored again throughout today. Plan is still for discharge to retirement facility, but probably tomorrow instead if there are no further episodes overnight. Exam Vital Signs (past 8 hours): - 02/26/21 04:30 02/26/21 05:00 02/26/21 06:45 Temperature Pulse Rate 76 65 72 Respiratory Rate 41 H 27 H 20 Blood Pressure 177/81 H Pulse Oximetry 89 L 92 94 02/26/21 07:00 02/26/21 08:00 02/26/21 08:10 Temperature 98.1 F Pulse Rate 77 Respiratory Rate 20 Blood Pressure 162/77 H Pulse Oximetry 94 87 L 94 02/26/21 08:45 02/26/21 09:00 02/26/21 09:05 Temperature Pulse Rate 77 79 78 Respiratory Rate 20 21 20 Blood Pressure 119/68 Pulse Oximetry 95 02/26/21 10:35 02/26/21 11:00 Temperature Pulse Rate 74 75 Respiratory Rate 24 Blood Pressure 147/79 H Pulse Oximetry 94 94 Oxygen Delivery Method Nasal Cannula Oxygen Flow Rate 2 Narrative Exam Narrative: Gen: Alert, oriented, well-developed 70 y.o. male, NAD HEENT: normocephalic, atraumatic, conjunctiva clear, sclera non-icteric, oral mucosa pink and moist Neck: supple, full ROM, no JVD, trachea is midline Resp: Lungs CTA, non-labored breathing CV: RRR, no murmur or rubs, no carotid bruits Abd: soft, non-tender, hyperactive BTs Skin: no lesions or rashes, dry and intact Neuro: Alert and oriented X 4 w/no focal deficits. Speech clear and coherent with occassional word finding difficulties. Cranial nerves 2-12 intact bilaterally Extremities: moves all 4 extremities, is ambulatory, negative Sarmad?s sign Psyche: normal mood and affect Objective Labs Result Diagrams: 02/26/21 05:00 02/26/21 05:00 Labs: Laboratory Results - last 24 hr 02/25/21 02/25/21 02/25/21 20:30 20:30 20:30 WBC 7.5 RBC 4.51 Hgb 14.4 Hct 41.1 MCV 91.3 MCH 32.0 MCHC 35.1 RDW 15.1 H Plt Count 56 L Neut % (Auto) 76.1 H Lymph % (Auto) 16.8 L [place] % (Auto) 5.8 Eos % (Auto) 0.4 L Baso % (Auto) 0.9 Neut # (Auto) 5700 Lymph # (Auto) 1300 [place] # (Auto) 400 Eos # (Auto) 0 Baso # (Auto) 100 Sodium 140 Potassium 3.2 L Chloride 103 Carbon Dioxide 28 BUN 18 Creatinine 0.59 L Estimated GFR > 60.0 BUN/Creatinine Ratio 30.5 H Glucose 223 H Lactate 2.7 H Calcium 9.4 Magnesium Total Bilirubin Conjugated Bilirubin Unconjugated Bilirubin AST ALT Alkaline Phosphatase Ammonia Total Creatine Kinase 88 CK-MB (CK-2) TNP CK-MB (CK-2) Rel Index TNP Troponin I 0.022 Total Protein Albumin Globulin Albumin/Globulin Ratio Nasal Screen MRSA (PCR) 02/25/21 02/25/21 02/25/21 20:30 21:00 22:50 WBC RBC Hgb Hct MCV MCH MCHC RDW Plt Count Neut % (Auto) Lymph % (Auto) [place] % (Auto) Eos % (Auto) Baso % (Auto) Neut # (Auto) Lymph # (Auto) [place] # (Auto) Eos # (Auto) Baso # (Auto) Sodium Potassium Chloride Carbon Dioxide BUN Creatinine Estimated GFR BUN/Creatinine Ratio Glucose Lactate 2.2 H Calcium Magnesium Total Bilirubin 1.9 H Conjugated Bilirubin 0.0 Unconjugated Bilirubin 1.7 H AST 141 H ALT 195 H Alkaline Phosphatase 119 Ammonia 36 H Total Creatine Kinase CK-MB (CK-2) CK-MB (CK-2) Rel Index Troponin I Total Protein 7.7 Albumin 4.1 Globulin 3.6 Albumin/Globulin Ratio 1.1 Nasal Screen MRSA (PCR) 02/25/21 02/26/21 02/26/21 23:47 05:00 05:00 WBC 5.5 RBC 4.29 L Hgb 13.6 Hct 39.2 L MCV 91.4 MCH 31.8 MCHC 34.8 RDW 14.1 Plt Count 50 L Neut % (Auto) 69.7 Lymph % (Auto) 23.2 L [place] % (Auto) 6.0 Eos % (Auto) 0.6 L Baso % (Auto) 0.5 Neut # (Auto) 3800 Lymph # (Auto) 1300 [place] # (Auto) 300 Eos # (Auto) 0 Baso # (Auto) 0 Sodium 139 Potassium 3.0 L Chloride 103 Carbon Dioxide 29 BUN 18 Creatinine 0.52 L Estimated GFR > 60.0 BUN/Creatinine Ratio 34.6 H Glucose 185 H Lactate Calcium 9.3 Magnesium 2.3 Total Bilirubin Conjugated Bilirubin Unconjugated Bilirubin AST ALT Alkaline Phosphatase Ammonia Total Creatine Kinase CK-MB (CK-2) CK-MB (CK-2) Rel Index Troponin I Total Protein Albumin Globulin Albumin/Globulin Ratio Nasal Screen MRSA (PCR) Positive for mrsa [facility] Medical History Carotid bruit (08/06/11) Congestion of both ears Diaphragmatic hernia (08/06/11) Diverticulosis (08/06/11) Emphysema lung Insomnia, persistent Mass of lower lobe of left lung Muscle strain of left lower leg Obstructive sleep apnea of adult (~08/06/11) Snoring Surgical History History of angioplasty History of angioplasty Status post arthroscopy Family History Brother Heart disease High cholesterol Brother Age: 76 High cholesterol Father Heart disease Diabetes mellitus High cholesterol Mother Diabetes mellitus Heart disease High cholesterol Sister Age: 67 High cholesterol Social History household members: spouse and other Smoking Status: Former smoker Tobacco: How many years used: 44 alcohol intake: current substance use type: former substance user and marijuana Assessment & Plan Assessment & Plan narrative: 70M with H CAD status post multiple stents, Crohn's disease, emphysema, left lower lobe mass, Fatty Liver, non insulin- dependent type 2 diabetic who presented to the emergency room with worsening confusion. This is his 3rd admission for such, previously with hyponatremia, presumed hepatic encephalopathy and now with continue differential as noted below. 1. Acute Toxic Metabolic encephalopathy, acute, present on admission, improving -MRI showed no stroke or other acute abnormality. MRI with contrast did not reveal any mass. -differential includes hepatic encephalopathy, carnitine deficiency, steroid induced delirium, psychiatric source given hallucinations, or seizure as noted below. -PT/OT evaluations appreciated, recommended for SNF. carnitine levels sent out, unknown timing for results. receiving L-carnitine IV, can continue oral as an outpatient. -continue lactulose, titrate to 3-5 BMs daily. -reduced budesonide to 3 mg BID, still needs prolonged taper given crohn's disease. -patient had a brief episode overnight on February 25 of non responsiveness, with altered mental status and delirium following which quickly resolved within an hour. Another possibility would be complex partial seizures leading to this pat hology, and as a precaution he was started on Keppra 500 mg twice daily and would highly recommend outpatient follow-up with Neurology. 2. Crohn's disease, chronic, not present on admission -continue home medications of mesalamine and budesonide but reduced dosing to 3 mg BID instead of 6 given possible steroid induced encephalopathy. both non- formulary will have to have family bring in. 3. Emphysema, chronic, not present on admission -patient does not appear to be on any inhalers. No respiratory symptoms at this time, continue to monitor. Emphysema was seen on his recent CT that revealed his left lower lobe mass. 4. Non insulin-dependent type 2 diabetes, acute on chronic, present on admission, uncontrolled -as evidence by a glucose of 143 on admit, - start sliding scale patient reports good control on low dose metformin. - hold metformin, on 02/14/2021 A1c was 5.6% 5. History of CAD, chronic, not present on admission - continue home asa and statin. 6. Left lower lobe lung mass - outpatient workup, rescheduled biopsy at [facility] on 03/06/21. -noted patient has had a BMI decrease from 30.7 on 11/30/2020 to today's admit 26.3 7. Fatty liver disease possibly cirrhosis, acute on chronic, present on admission 8. 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 Increased to 1200 cc from 800 given patient complaints. will watch sodium levels. Still o [place] today. 9. hypokalemia - will replete today. Code Status : Full Code Surrogate decision maker: patient's COVID PCR: Negative MRSA nasal swab of: Positive DVT/VTE prophylaxis: Lovenox daily. Dispo: plan for SNF tomorrow. Quality VTE Deep Vein Thrombosis/Pulmonary Embolism Present on Admission: No
[2021-02-26] MEDS: levETIRAcetam 250 MG TABLET 500 MG PO ×2 (13:17→20:56)
--- NOTE | 2021-02-26 16:49 | CM.DPC ---
DCP Continued: Patient had code stroke event last night per doctor Mark he will not D/C today. Called Caterina at [facility] this am to relay information. She is aware discharge is pushed potentially for tomorrow. PLAN: Anticipate D/C to [facility] when medically stable. Please follow up on whether or not new COVID test needed prior to d/c. ADRIANNE Alcantar MSW Student
[2021-02-26] MEDS: LEVOCARNITINE IV (23:56)
[2021-02-26] MEDS: SODIUM CHLORIDE 0.9% IV (23:56)
[2021-02-27 00:05] VITALS: BP 157/79; PULSE 60; RESP 18; TEMP 36.7; O2SAT 94
[2021-02-27] MEDS: SODIUM CHLORIDE 0.9% 250 ML 21 ML IV (01:41)
[2021-02-27 04:53] VITALS: BP 140/76; PULSE 65; RESP 18; TEMP 36.2; O2SAT 92
[2021-02-27 05:31] LABS: Alanine Aminotransferase 167 IU/L (<50); Albumin 3.7 g/dL (3.5-5.0); Albumin Globulin Ratio 1.1 (1.0-2.8); Alkaline Phosphatase 100 U/L (38-126); Aspartate Aminotransferase 106 IU/L (17-59); Bilirubin Total 1.3 mg/dL (0.2-1.3); Blood Urea Nitrogen 19 mg/dL (9-20); Calcium 9.3 mg/dL (8.4-10.2); Carbon Dioxide 27 mmol/L (22-32); Chloride 104 mmol/L (98-107); Estimated Glomerular Filt Rate > 60.0 mL/min (>60); Globulin 3.5 g/dL (1.7-4.1); Glucose 178 mg/dL (80-110); HEMOLYSIS < 15 (0-50); Potassium 3.4 mmol/L (3.4-5.1); Sodium 139 mmol/L (137-145); Total Protein 7.2 g/dL (6.3-8.2)
[2021-02-27 08:00] VITALS: BP 159/77; PULSE 65; RESP 19; TEMP 36.1; O2SAT 93; O2SAT 96
[2021-02-27] MEDS: METOPROLOL ER 25 MG TABLET PO (08:22)
[2021-02-27] MEDS: LACTULOSE 20 GM/30 ML SOLUTION PO (08:22)
[2021-02-27] MEDS: MESALAMINE 800 MG TABLET.DR 2400 MG PO (08:22)
[2021-02-27] MEDS: PANTOPRAZOLE DR 20 MG TABLET PO (08:22)
[2021-02-27] MEDS: levETIRAcetam 250 MG TABLET 500 MG PO (08:22)
[2021-02-27] MEDS: ASPIRIN EC 81 MG TABLET PO (08:22)
[2021-02-27] MEDS: EZETIMIBE 10 MG TABLET PO (08:22)
[2021-02-27] MEDS: BUDESONIDE 3 MG CAP PO (08:24)
[2021-02-27] MEDS: INSULIN LISPRO 100 UNIT/ML 3ML VIAL SUBCUT (08:24)
[2021-02-27] MEDS: SODIUM CHLORIDE 0.9% FLUSH 10 ML IV (08:26)
--- NOTE | 2021-02-27 08:29 | PM.DS.1 ---
History of Present Illness History of Present Illness Date Patient Seen: 02/27/21 Time Patient Seen: 08:29 Chief complaint: Confusion Narrative: ANNA Grubbs: Sage Llanes is a 70-year-old male with history of coronary artery disease (multiple stents), Crohn's disease, COPD, type 2 diabetes, and a recent diagnosis of lung cancer with two recent hospitalizations for confusion secondary to hyponatremia returns with family and concern that the symptoms are back. He had been discharged 2 days ago and over the course of the day today he has become confused again with weakness ambulating with his walker. He has had no falls, traumas or injury. He denies any chest pain or shortness of breath. He has no abdominal pain or nausea or vomiting. He denies fever or chills. Patient was seen by Dr. Lofton, Ultrasonic Tester at [facility] on 02/03/21. Patient has been scheduled for a bronchoscopy on February 24 and a biopsy for March 06, 2021. There were findings of a left lower lung mass with mediastinal and hilar adenopathy. Patient was previously admitted on 02/13/21, discharged on 02/16/21 and again on 02/18/21, discharged on 02/20/2021 for metabolic encephalopathy in relation to hyponatremia with a sodium level of 118. Patient's sodium was corrected over a total of 4 days for total of 19 points ending in a sodium level of 135 on discharge at which time the patient's encephalopathy had resolved. Today, his sodium level is normal. During the past admission and discharge, the patient was prescribed a daily dose of lactulose 20 mg daily for hepatic encaphalopathy. He took doses on February 21 and had one large bowel movement and today, had several smaller bowel movements. He was administered a dose of lactulose in the ED today. On admit today patient's blood pressure is mildly elevated at 144/94, in the ED. He is tachypneac with a rate of 28 and an oxgyen saturation of 93%. CBC is unremarkable except for a platelet count of 75, last normal prior to February 13 of this year. His BUN is 22, creatinine 0.56 but his GFR is normal at greater than 60, glucose is 216, total bilirubin is 1.6, AST 105, ALT 114, and an ammonia level of 45, urine is negative for UTI and urine toxicology is negative, and COVID 19 PCR is negative. Discharge Providers Provider Date of admission: 02/23/21 15:17 Discharge Date: 02/27/21 Primary care physician: Antonio Gore DO Consults: 02/22/21 23:58 Consult to Dietitian, Adult Routine Comment: Reason For Exam: recurring illness causing weight fluctuations 02/23/21 12:57 Consult to Occupational Therapy Evaluate & Treat Comment: Physician Instructions: Evaluate and treat Consult to Physical Therapy Evaluate & Treat Comment: Physician Instructions: Evaluate and Treat 02/26/21 09:38 Consult to Respiratory Therapy Evaluate & Treat Comment: Physician Instructions: Evaluate and treat Discharge provider: Hang Flores DO Summary Hospital Course Discharge Diagnosis: Please see hospital course by problem list noted below. Hospital Course: 70M with PMH CAD status post multiple stents, Crohn's disease, emphysema, left lower lobe mass, steatohepatosis with cirrhotic appearing liver, non insulin-dependent type 2 diabetic who presented to the emergency room with worsening confusion. 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 1. Acute Toxic Metabolic encephalopathy, acute, present on admission, improving -MRI showed no stroke or other acute abnormality. MRI with contrast did not reveal any mass. -differential includes hepatic encephalopathy, carnitine deficiency, steroid induced delirium, psychiatric source given hallucinations, or seizure as noted below. -PT/OT evaluations appreciated, recommended for SNF. -carnitine levels sent out, unknown timing for results. received L-carnitine IV while inpatient, can continue oral as an outpatient. dose is 990 mg tablet BID. Can stop supplement if carnitine levels are normal. -continue lactulose, titrate to 3-5 BMs daily. -reduced budesonide to 3 mg BID, still needs prolonged taper given crohn's disease. Follow up with outpatient provider either GI or PCP for continued taper. -patient had a brief episode overnight on February 25 of non responsiveness, with altered mental status and delirium following which quickly resolved within an hour. He states he does not recall about 4 hours of time during the event. Another possibility would be complex partial seizures leading to this pathology, and as a precaution he was started on Keppra 500 mg twice daily and would highly recommend outpatient follow-up with Neurology or neuropsychiatry if able. 2. Crohn's disease, chronic, not present on admission -continue home medications of mesalamine and budesonide but reduced dosing to 3 mg BID instead of 6 given possible steroid induced encephalopathy. 3. Emphysema, chronic, not present on admission -patient does not appear to be on any inhalers. No respiratory symptoms at this time, continue to monitor. Emphysema was seen on his recent CT that revealed his left lower lobe mass. 4. Non insulin-dependent type 2 diabetes, acute on chronic, present on admission, good control - started sliding scale patient reports good control on low dose metformin. - held metformin, on 02/14/2021 A1c was 5.6% 5. History of CAD, chronic, not present on admission - continue home asa and statin. 6. Left lower lobe lung mass - outpatient workup, rescheduled biopsy at [facility] on 03/06/21. -noted patient has had a BMI decrease from 30.7 on 11/30/2020 to today's admit 26.3 -imaging performed for code stroke on 02/25 did show some lymphadenopathy which may be related to lung mass. 7. Fatty liver disease possibly cirrhosis, acute on chronic, present on admission - repeat ultrasound showing evidence of cirrhosis with splenomegaly. Thromyocytopenia stable around 50-60 likely due to splenic sequestration. Recommend outpatient GI follow up to discuss further evaluation. Hepatitis serologies negative. 8. 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 Increased to 1200 cc from 800 given patient complaints and sodium level continues to be in range. 9. hypokalemia - will replete today. 10. Thrombocytopenia - likely secondary to splenic sequestration as noted above. Code Status : Full Code Surrogate decision maker: patient's COVID PCR: Negative MRSA nasal swab of: Positive Dispo: [facility] for continued PT/OT. Status at Discharge Cognitive/behavioral status at discharge: oriented Functional status at discharge: independent ambulation Overall status at discharge: patient is progressing back to baseline Time Spent with Patient Time spent: Greater than 30 minutes Exam Vital Signs (past 8 hours): - 02/27/21 04:53 02/27/21 08:00 Temperature 97.2 F L 97.0 F L Pulse Rate 65 65 Respiratory Rate 18 19 Blood Pressure 140/76 159/77 H Pulse Oximetry 92 93 Oxygen Delivery Method Nasal Cannula,CPAP Oxygen Flow Rate 2 Narrative Exam Narrative: Gen: Alert, oriented, well-developed 70 y.o. male, NAD HEENT: normocephalic, atraumatic, conjunctiva clear, sclera non-icteric, oral mucosa pink and moist Neck: supple, full ROM, no JVD, trachea is midline Resp: Lungs CTA, non-labored breathing CV: RRR, no murmur or rubs, no carotid bruits Abd: soft, non-tender, hyperactive BTs Skin: no lesions or rashes, dry and intact Neuro: Alert and oriented X 4 w/no focal deficits. Speech clear and coherent with occassional word finding difficulties. Cranial nerves 2-12 intact bilaterally Extremities: moves all 4 extremities, is ambulatory, negative Sarmad?s sign Psyche: normal mood and affect Objective Labs Result Diagrams: 02/26/21 05:00 02/27/21 04:54 Labs: Laboratory Results - last 24 hr 02/27/21 04:54 Sodium 139 Potassium 3.4 Chloride 104 Carbon Dioxide 27 BUN 19 Creatinine 0.50 L Estimated GFR > 60.0 BUN/Creatinine Ratio 38.0 H Glucose 178 H Calcium 9.3 Total Bilirubin 1.3 AST 106 H ALT 167 H Alkaline Phosphatase 100 Total Protein 7.2 Albumin 3.7 Globulin 3.5 Albumin/Globulin Ratio 1.1 [facility] Medical History Carotid bruit (08/06/11) Congestion of both ears Diaphragmatic hernia (08/06/11) Diverticulosis (08/06/11) Emphysema lung Insomnia, persistent Mass of lower lobe of left lung Muscle strain of left lower leg Obstructive sleep apnea of adult (~08/06/11) Snoring Surgical History History of angioplasty History of angioplasty Status post arthroscopy Family History Brother Heart disease High cholesterol Brother Age: 76 High cholesterol Father Heart disease Diabetes mellitus High cholesterol Mother Diabetes mellitus Heart disease High cholesterol Sister Age: 67 High cholesterol Social History household members: spouse and other Smoking Status: Former smoker Tobacco: How many years used: 44 alcohol intake: current substance use type: former substance user and marijuana Discharge Plan Discharge Plan Patient Disposition: SNF Transfer to: [facility] Provider Discharge Comment: 70M with PMH CAD status post multiple stents, Crohn's disease, emphysema, left lower lobe mass, steatohepatosis with cirrhotic appearing liver, non insulin-dependent type 2 diabetic who presented to the emergency room with worsening confusion. 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 1. Acute Toxic Metabolic encephalopathy, acute, present on admission, improving -MRI showed no stroke or other acute abnormality. MRI with contrast did not reveal any mass. -differential includes hepatic encephalopathy, carnitine deficiency, steroid induced delirium, psychiatric source given hallucinations, or seizure as noted below. -PT/OT evaluations appreciated, recommended for SNF. -carnitine levels sent out, unknown timing for results. received L-carnitine IV while inpatient, can continue oral as an outpatient. dose is 1000 mg tablet BID. Can stop supplement if carnitine levels are normal. -continue lactulose, titrate to 3-5 BMs daily. -reduced budesonide to 3 mg BID, still needs prolonged taper given crohn's disease. Follow up with outpatient provider either GI or PCP for continued taper. -patient had a brief episode overnight on February 25 of non responsiveness, with altered mental status and delirium following which quickly resolved within an hour. He states he does not recall about 4 hours of time during the event. Another possibility would be complex partial seizures leading to this pathology, and as a precaution he was started on Keppra 500 mg twice daily and would highly recommend outpatient follow-up with Neurology or neuropsychiatry if able. 2. Crohn's disease, chronic, not present on admission -continue home medications of mesalamine and budesonide but reduced dosing to 3 mg BID instead of 6 given possible steroid induced encephalopathy. 3. Emphysema, chronic, not present on admission -patient does not appear to be on any inhalers. No respiratory symptoms at this time, continue to monitor. Emphysema was seen on his recent CT that revealed his left lower lobe mass. 4. Non insulin-dependent type 2 diabetes, acute on chronic, present on admission, good control - started sliding scale patient reports good control on low dose metformin. - held metformin, on 02/14/2021 A1c was 5.6% 5. History of CAD, chronic, not present on admission - continue home asa and statin. 6. Left lower lobe lung mass - outpatient workup, rescheduled biopsy at [facility] on 03/06/21. -noted patient has had a BMI decrease from 30.7 on 11/30/2020 to today's admit 26.3 -imaging performed for code stroke on 02/25 did show some lymphadenopathy which may be related to lung mass. 7. Fatty liver disease possibly cirrhosis, acute on chronic, present on admission - repeat ultrasound showing evidence of cirrhosis with splenomegaly. Thromyocytopenia stable around 50-60 likely due to splenic sequestration. Recommend outpatient GI follow up to discuss further evaluation. Hepatitis serologies negative. 8. 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 Increased to 1200 cc from 800 given patient complaints and sodium level continues to be in range. 9. hypokalemia - repleted multiple times through out his admission. 10. Thrombocytopenia - likely secondary to splenic sequestration as noted above. Code Status : Full Code Surrogate decision maker: patient's COVID PCR: Negative MRSA nasal swab of: Positive Dispo: [facility] for continued PT/OT. Discharge orders & Medications Prescriptions: New metoprolol succinate 25 mg Tablet Extended Release 24 Hr 25 mg PO DAILY 30 Days Qty: 30 RF: 0 budesonide 3 mg Capsule,Delayed,Extend.Release 3 mg PO BID 30 Days Qty: 60 RF: 0 levetiracetam 500 mg tablet 500 mg PO BID 30 Days Qty: 60 RF: 0 L-Carnitine 500 mg tablet 1,000 mg PO BID 30 Days Qty: 120 RF: 0 Continued metformin 500 mg tablet extended release 24 hr 500 mg PO BID 30 Days Qty: 180 RF: 2 multivitamin [Multiple Vitamins] tablet 1 tab PO DAILY RF: 0 aspirin 81 mg tablet,delayed release (DR/EC) 81 mg PO DAILY RF: 0 atorvastatin [Lipitor] 80 mg tablet 80 mg PO Q DAY Qty: 90 RF: 3 ezetimibe [Zetia] 10 mg tablet 10 mg PO DAILY Qty: 90 RF: 3 pantoprazole [Protonix] 20 mg tablet,delayed release (DR/EC) 20 mg PO QDAY Qty: 90 RF: 3 mesalamine 1.2 gram tablet,delayed release (DR/EC) 2.4 g PO BID RF: 0 lactulose 20 gram/30 mL solution 20 g PO DAILY Qty: 900 RF: 0 vitamin B complex [B Complex-Vitamin B12] Tablet 1 tab PO DAILY RF: 0 calcium carbonate-vitamin D3 [Calcium 600 with Vitamin D3] 600 mg(1,500mg) -500 unit capsule 1 cap PO DAILY RF: 0 Discontinued diphenhydramine-acetaminophen [Tylenol PM Extra Strength] 25-500 mg tablet 2 tab PO BEDTIME PRN (Reason: Sleep) RF: 0 budesonide 3 mg capsule,delayed,extend.release 6 mg PO BID RF: 0 Follow up/Referrals: Antonio Gore DO [Primary Care Provider] - Discharge Health Status Multidrug resistant organism: MRSA Precautions: Contact Diet/Activity/Treatments Diet: Diet as Tolerated and Carb-consistent/Diabetic Liquid consistency: Normal/Thin Food texture: Regular Activity: As tolerated Special Rehabilitation Services Reason for rehabilitation: Recovery r/t decondition Rehab type: Physical therapy and Occupational therapy Discharge Data Primary Care Provider: Antonio Gore Quality VTE Deep Vein Thrombosis/Pulmonary Embolism Present on Admission: No
[2021-02-27] MEDS: POTASSIUM CHLORIDE 20 MEQ TAB PO (08:37)
--- NOTE | 2021-02-27 09:00 | OT.IP.TRT ---
Current Diagnoses Obstructive sleep apnea (adult) (pediatric) (02/23/21) Occupational Therapy Treatment Note M2 OT-IP Current Condition Start: 02/24/21 12:18 Freq: Status: Active Protocol: Document 02/24/21 10:55 [facility] (Rec: 02/24/21 12:42 [facility] [id number]) Occupational Therapy Current Condition Current Condition Evaluation Date 02/24/21 Treatment Diagnosis Acute toxic encephalopathy, decreased mobility and confusion Diagnosis Onset Date 02/23/21 M3 OT- IP Subjective and Pain Start: 02/24/21 12:18 Freq: Status: Active Protocol: Document 02/27/21 09:26 [facility] (Rec: 02/27/21 09:32 [facility] [id number]) OT- Subjective Occupational Therapy Visit Type Type Treatment Note Visit Start Time 09:00 Visit Stop Time 09:23 Total Visit Minutes 23 Occupational Therapy Visit Comments Patient Comments Pt wanting to shower. Patient/Caregiver Goals To go to skilled rehab to get stronger. OT Pain Assessment Pain When Pain Assessed At Rest Pain Present Pain Present Denied Pain M4 OT- IP ADL's Start: 02/24/21 12:18 Freq: Status: Active Protocol: Document 02/27/21 09:26 [facility] (Rec: 02/27/21 09:32 [facility] [id number]) OT AUN-Qejh-Phcqsmx General Evaluation Self-Feeding Ability Independent OT ADL-Dressing General Eval Upper Body Dressing Ability Independent Lower Body Dressing Ability Independent Areas Needing Assistance Retrieving/Set-up of Clothing, Underpants/Brief,Socks OT ADL-Toileting Comments OT Toileting Comments not performed OT ADL-Bathing Bathing Type Bathing Type Shower General Evaluation Bathing Ability Minimal Assistance Areas Needing Assistance Retrieving/Setting Up Items, Wash/Dry Back Devices Bathing Equipment Hand Held Shower Sprayer, Shower Chair with Arms Comments OT Bathing Comments Pt able to stand for part of the task with use of grab bars for balance. Pt states uses a long handled brush at home to wash his back. M5 OT- IP IADL's Start: 02/24/21 12:18 Freq: Status: Active Protocol: Document 02/24/21 10:55 [facility] (Rec: 02/24/21 12:42 [facility] [id number]) OT-Instrumental Activities of Daily Living Medication Management Medication Management Caregiver Administers Money Management Money Management Caregiver Provides Assistance Meal Preparation Meal Preparation Caregiver Provides Assist Account Associate Account Associate Caregiver Provides Assist Driving Driving Caregiver Provides Assist Driving Comments Pt states has given up driving at this time. M6 OT- IP Functional Cognition Start: 02/24/21 12:18 Freq: Status: Active Protocol: Document 02/27/21 09:26 [facility] (Rec: 02/27/21 09:32 [facility] [id number]) Cognitive Factors Limiting Selfcare Function Cognitive Ability Level of Alertness Alert Attention Span Ability Capable of Focused Attention, Capable of Sustained Attention Ability to Follow Commands Able to Follow One Step Commands Cognitive Comments Cognitive Assessment Comments Pt still needing cues to slow down at times. M7 OT- IP Mobility and Balance Start: 02/24/21 12:18 Freq: Status: Active Protocol: Document 02/27/21 09:26 [facility] (Rec: 02/27/21 09:32 [facility] [id number]) OT-Transfer Assessment Sit to and From Stand Sit to and from Stand Standby Assistance Transfers Transfer Ability Standby Assistance Technique Transfer Destination Chair,Shower Stall,Toilet Transfer Technique Stand Step Pivot Devices Transfer Assistive Devices Gait Belt,Front Wheeled Walker Comments Mobility Comments SBA for all mobility in the room. OT- Gait Assessment Comments Gait Ability Comments SBA with FWW OT- Balance Assessment Sitting Balance and Reactions Static Sitting Balance Ability Normal Dynamic Sitting Balance Ability Good Standing Balance and Reactions Static Standing Balance Ability Fair M8 OT- IP Objective Assessments Start: 02/24/21 12:18 Freq: Status: Active Protocol: Document 02/24/21 10:55 [facility] (Rec: 02/24/21 12:42 [facility] [id number]) OT Gross Range of Motion Upper Extremity Range of Motion Assessment Within Functional Limits OT Strength Upper Extremity Strength Assessment Within Functional Limits OT- Coordination Assessment Upper Extremity Finger to Nose Test Left UE Impaired Comments Coordination Comments Left hand slightly off for finger to nose. OT-Muscle Tone Assessment Muscle Tone WNL Yes M9 OT- IP Assessment and Plan Start: 02/24/21 12:18 Freq: Status: Active Protocol: Document 02/27/21 09:26 [facility] (Rec: 02/27/21 09:32 [facility] [id number]) OT Summary Assessment and Plan Potential Rehabilitation Potential Good Analytic Complexity at Evaluation Moderate Summary Progress Towards Goals Progressing Toward Goals Assessment Summary Pt able to shower today and O2 on RA and dropped to 83% and able to increase to 90% within 1 minute of deep breathing. Pt looking to go to skilled rehab prior to going home. Goals Self-Feeding Goal Independent Grooming Goal Independent Dressing Goal Independent Toileting Goal Independent Bathing Goal Independent Toilet Transfer Goal Independent Shower Transfer Goal Independent Days to Meet Goals 7 Frequency of Treatment Frequency Of Treatment Once a Day Treatment Plan OT Treatment Plan ADL Training,Functional Cognition Training,Functional Mobility,Patient/Family Education,Discharge Planning Discharge Recommendations OT Discharge Recommendations SNF Rehab Transportation Needs at Discharge Private Vehicle,Wheelchair/ Cabulance
--- NOTE | 2021-02-27 09:08 | CM.DPC ---
Addendum entered by ADRIANNE Ramirez 02/27/21 10:41: ADD: Rapid COVID returned negative. SW met bedside with pt and spouse and they are agreeable with d/c plan to [facility] today and spouse confirms she can drop off requested home med Mesalamine to [facility] for use per [facility] request and pt already received his once daily dose this morning already. SW provided report number to RN for [facility] and pt stable for d/c around 1130. BF Original Note: DCP Discharge SNF Per MD, pt is medically stable to d/c to SNF today with no identified barriers to discharge. SW called [facility] and left msg with update on d/c orders and faxed signed med rec, PAS[facility], no scripts needed, orders to [facility] to review. RN getting swab for rapid COVID, sent to lab. Plan: SW to follow for return call from [facility] to confirm d/c transport time while awaiting rapid COVID and SW to call spouse when time confirmed for d/c. ADRIANNE Ramirez
[2021-02-27 09:14] LABS: COVID19 - ADMIT (NP swab/PCR) Negative (Negative)
--- NOTE | 2021-02-27 09:32 | PC.NURSE ---
Addendum entered by Joe Ramon R.N. 02/27/21 11:49: SBA from chair to w/c. All belongings gathered and carried out by pt's . Pt left with [facility] transport staff at 1140 in no apparent distress. Addendum entered by Joe Ramon R.N. 02/27/21 11:22: Pt and at bedside for dc education. Reviewed educational materials, medications, when to seek emergency medical treatment. Instructed pt to keep f/u appointments and also f/u with PCP after discharge from SNF. Pt and verbalize understanding of teaching. Addendum entered by Joe Ramon R.N. 02/27/21 10:53: Called report to nurse Ralph at [facility]. Plan is for pt to dc at 1130. [facility] is requesting that pt/ bring in home med mesalamine. I requested this from the and she states she will take care of it. Original Note: 07- Reported to hospitalist that 0600 Carnitor infusion held due to unavailable in night pharmacy, available dose in seismic observer . Hospitalist states he will switch to PO since pt will discharge today.
--- NOTE | 2021-02-27 10:50 | PT-IP ANOTE ---
Pt worked with OT this AM for shower and was seen ambulating the halls with his CHARMAINE using FWW. Pt states he is about to discharge and declined therapy at this time. Plan is for [facility] within the hour.
[2021-02-28 06:53] LABS: Carnitine, Free 50 umol/L (20-55); Esterified/Free Ratio 0.2 Ratio (0.0-0.9)
--- NOTE | 2021-02-28 08:45 | CM.DPNOTE ---
SW received a call from pt's spouse stating after pt was discharged to [facility] he developed a pinched nerve/severe pain and was eventually sent to the ED after a couple hours without resolved pain. Pt made the decision then to d/c directly from ED to home with spouse and not return to [facility] where he had only been admitted to for a couple hours. Spouse states since she did not have discharge pwk or meds from [facility] and only had the one new medication from the ED for pain control, she was requesting assist to get the 4 new meds sent to their pharmacy that pt was discharged from the hospital to SNF on. SW called [facility] admissions and since pt was not officially discharged from their facility, their physicians cannot likely prescribe the medications to the pt. SW spoke to spouse again and updated her on the list of new meds from the hospital d/c and encouraged her to coordinate through pt's PCP (Dr. Sweet) as he will have access to the hospital discharge and ED discharge through [facility] and also to coordinate with [facility] staff to obtain these medications. Spouse very appreciative and aware that the d/c from ED and not though the SNF was the challenging aspect of having clear Rx scripts. Spouse will call PCP now. ADRIANNE Ramirez
== END 2021-02-27 11:40 | DRG 91 ==
LOC: ED 22:48 → AC 22:58 → ICU 02-27 08:43 → AC 03-03 15:11 → ICU 03-03 15:11
PROVIDERS: Internal Medicine; Admitting Provider Nurse Practitioner Family; Emergency Provider Emergency Medicine; PCP Family Medicine; Referring Provider Emergency Medicine; Visit Provider Nurse Practitioner Family
DX: G92 Toxic encephalopathy (principal); K72.00 Acute and subacute hepatic failure without coma; K50.90 Crohn's disease, unspecified, without complications; E22.2 Syndrome of inappropriate secretion of antidiuretic hormone; G40.209 Localization-related (focal) (partial) symptomatic epilepsy and epileptic syndromes with complex partial seizures, not intractable, without status epilepticus; D84.821 Immunodeficiency due to drugs; F19.921 Other psychoactive substance use, unspecified with intoxication with delirium; D69.6 Thrombocytopenia, unspecified; G47.33 Obstructive sleep apnea (adult) (pediatric); J43.9 Emphysema, unspecified; R74.01 Elevation of levels of liver transaminase levels; K76.0 Fatty (change of) liver, not elsewhere classified; E78.5 Hyperlipidemia, unspecified; I25.10 Atherosclerotic heart disease of native coronary artery without angina pectoris; E11.9 Type 2 diabetes mellitus without complications; R91.8 Other nonspecific abnormal finding of lung field; Z79.84 Long term (current) use of oral hypoglycemic drugs; Z87.891 Personal history of nicotine dependence; Z20.822 Contact with and (suspected) exposure to COVID-19; Z95.5 Presence of coronary angioplasty implant and graft; E71.40 Disorder of carnitine metabolism, unspecified
CPT/HCPCS: 36415; 51798; 70450; 70496; 70498; 70553; 71045; 76705; 80048; 80053; 80076; 80305; 81003; 81015; 82140; 82379; 82550; 82962; 83605; 83735; 84484; 85025; 85610; 87635; 87797; 93005; 94760; 97116; 97162; 97166; 97530; 97535; 99284; C9803; G0378; J1815; Q9967

== ENCOUNTER 2021-02-27 22:17 | Emergency (ER) | payer MEDICARE, OTHER, SELFPAY ==
[2021-02-22 23:49] VITALS: BMI 25.8
[2021-02-27 22:20] VITALS: BP 151/74; PULSE 67; RESP 18; TEMP 36.6; O2SAT 92; BMI 25.9
[2021-02-27] MEDS: MORPHINE 4 MG/ML INJ IM (23:11)
[2021-02-27] MEDS: KETOROLAC 30 MG/ML VIAL IM (23:11)
--- NOTE | 2021-02-27 23:26 | ED_ITS ---
HPI - Back Pain/Injury General Chief Complaint: Back Pain/Injury Stated Complaint: Back Pain Time Seen by Provider: 02/27/21 22:20 Source: patient, family and EMS Mode of arrival: EMS Limitations: no limitations History of Present Illness HPI Narrative: Patient is a 70-year-old male here for evaluation of lower back pain. He states he has had lower back pain in the past. He just recently checked into rehab facility and he thinks that he over did it with physical therapy yesterday. Has not tried anything for symptoms prior to arrival. Related Data Home Medications Medication Instructions Recorded Confirmed multivitamin 1 tab PO DAILY 07/28/18 02/23/21 aspirin 81 mg tablet,delayed 81 mg PO DAILY 04/22/19 02/23/21 release calcium carbonate 600 mg (1,500 1 cap PO DAILY cap 01/18/21 02/23/21 mg)-vitamin D3 500 unit capsule vitamin B complex 1 tab PO DAILY 01/18/21 02/23/21 mesalamine 2.4 g PO BID 02/14/21 02/23/21 Previous Rx's Medication Instructions Recorded atorvastatin 80 mg tablet 80 mg PO Q DAY #90 tab 03/22/20 ezetimibe 10 mg tablet 10 mg PO DAILY #90 tab 03/22/20 pantoprazole 20 mg tablet,delayed 20 mg PO QDAY #90 tab 03/22/20 release metformin 500 mg tablet,extended 500 mg PO BID 30 Days #180 tab 01/13/21 release 24 hr lactulose 20 g PO DAILY #900 ml 02/20/21 budesonide 3 mg PO BID 30 Days #60 ea 02/27/21 levetiracetam 500 mg PO BID 30 Days #60 tab 02/27/21 levocarnitine [L-Carnitine] 1,000 mg PO BID 30 Days #120 tab 02/27/21 metoprolol succinate 25 mg PO DAILY 30 Days #30 tab 02/27/21 tramadol [Ultram] 50 mg PO Q8H PRN #10 tab 02/27/21 Allergies Allergy/AdvReac Type Severity Reaction Status Date / Time No Known Drug Allergies Allergy Verified 02/22/21 19:36 Review of Systems Constitutional Constitutional: Denies fever(s) Gastrointestinal Gastrointestinal: Reports system reviewed and no additional complaints, except as documented Genitourinary Genitourinary: Denies testicular pain Musculoskeletal Musculoskeletal: Reports back pain and Denies tingling Neurologic Neurologic: Denies tingling Psychiatric Psychiatric: Reports system reviewed and no additional complaints, except as documented Patient History Medical History Carotid bruit (08/06/11) Congestion of both ears Diaphragmatic hernia (08/06/11) Diverticulosis (08/06/11) Emphysema lung Insomnia, persistent Mass of lower lobe of left lung Muscle strain of left lower leg Obstructive sleep apnea of adult (~08/06/11) Snoring Surgical History History of angioplasty History of angioplasty Status post arthroscopy Family History Brother Heart disease High cholesterol Brother Age: 76 High cholesterol Father Heart disease Diabetes mellitus High cholesterol Mother Diabetes mellitus Heart disease High cholesterol Sister Age: 67 High cholesterol Social History household members: spouse and other Smoking Status: Former smoker Tobacco: How many years used: 44 alcohol intake: current substance use type: former substance user and marijuana Smoking Status: Former smoker alcohol intake frequency: holidays/special occasions only Substance Use Type: does not use Exam Initial Vital Signs Initial Vital Signs: Vital Signs Temperature 97.9 F 02/27/21 22:20 Pulse Rate 67 02/27/21 22:20 Respiratory Rate 18 02/27/21 22:20 Blood Pressure 151/74 H 02/27/21 22:20 Pulse Oximetry 92 02/27/21 22:20 Const General: cooperative and comfortable Limitations: mental status not altered [facility] Head: normal to inspection and normocephalic Resp Effort & Inspection: normal respiratory effort Back/Spine/Pelvis Thoracic/Lumbar Spine: No paraspinal tenderness, No thoracic spinal tenderness and lumbar spinal tenderness Skin Lesions: no lesions Rashes: no rashes Neuro General: patient alert and patient awake Extrem General: normal to inspection and capillary refill normal Psych Appearance: grossly normal and well kempt Course Orders Ordered: Discontinued Medications Ketorolac Tromethamine (Ketorolac 30 Mg/Ml Vial) 30 mg IM NOW ONE Stop: 02/27/21 23:03 Last Admin: 02/27/21 23:11 Dose: 30 mg Documented by: GAMALIEL Morphine Sulfate (Morphine 4 Mg/Ml Inj) 4 mg IM NOW ONE Stop: 02/27/21 23:03 Last Admin: 02/27/21 23:11 Dose: 4 mg Documented by: GAMALIEL Tramadol HCl (Tramadol 50 Mg Prepack) 1 bottle MISC SEEINSTR ONE Stop: 02/27/21 23:40 Last Admin: 02/27/21 23:43 Dose: 1 bottle Documented by: GAMALIEL Vital Signs Vital signs: Vital Signs - 8 hr 02/27/21 22:20 02/27/21 23:52 Temperature 97.9 F Pulse Rate 67 65 Respiratory Rate 18 18 Blood Pressure 151/74 H 176/80 H Pulse Oximetry 92 92 MDM - Back Pain/Injury MDM Narrative Medical decision making narrative: No specific trauma as the cause of the event. Afebrile. Western better after medications. I feel we can hold on radiologic studies. Patient is given return precautions and follow-up instructions. He expressed understanding and agreement. Discharge Plan Departure Patient Disposition: Home Clinical Impression: Strain of lumbar region Instructions: DI for Low Back Pain Activity Restrictions/Additional Instructions: I do recommend that you try to stay as active as possible as this will most likely help your back pain. I recommend that you continue with the Tylenol like you have been taking an use the Ultram as needed for any breakthrough discomfort. Contact your primary provider for follow-up. Return to the emergency department for any new or worsening symptoms Prescriptions: New tramadol [Ultram] 50 mg tablet 50 mg PO Q8H PRN (Reason: pain) Qty: 10 RF: 0 No Action metformin 500 mg tablet extended release 24 hr 500 mg PO BID 30 Days Qty: 180 RF: 2 multivitamin [Multiple Vitamins] tablet 1 tab PO DAILY RF: 0 aspirin 81 mg tablet,delayed release (DR/EC) 81 mg PO DAILY RF: 0 atorvastatin [Lipitor] 80 mg tablet 80 mg PO Q DAY Qty: 90 RF: 3 ezetimibe [Zetia] 10 mg tablet 10 mg PO DAILY Qty: 90 RF: 3 pantoprazole [Protonix] 20 mg tablet,delayed release (DR/EC) 20 mg PO QDAY Qty: 90 RF: 3 metoprolol succinate 25 mg Tablet Extended Release 24 Hr 25 mg PO DAILY 30 Days Qty: 30 RF: 0 budesonide 3 mg Capsule,Delayed,Extend.Release 3 mg PO BID 30 Days Qty: 60 RF: 0 levetiracetam 500 mg tablet 500 mg PO BID 30 Days Qty: 60 RF: 0 L-Carnitine 500 mg tablet 1,000 mg PO BID 30 Days Qty: 120 RF: 0 mesalamine 1.2 gram tablet,delayed release (DR/EC) 2.4 g PO BID RF: 0 lactulose 20 gram/30 mL solution 20 g PO DAILY Qty: 900 RF: 0 vitamin B complex [B Complex-Vitamin B12] Tablet 1 tab PO DAILY RF: 0 calcium carbonate-vitamin D3 [Calcium 600 with Vitamin D3] 600 mg(1,500mg) - 500 unit capsule 1 cap PO DAILY RF: 0 Referrals: Antonio Gore DO [Primary Care Provider] -
[2021-02-27] MEDS: TRAMADOL 50 MG PREPACK 1 BOTTLE MISC (23:43)
[2021-02-27 23:52] VITALS: BP 176/80; PULSE 65; RESP 18; O2SAT 92
== END 2021-02-27 23:54 | disposition home or self-care (01) ==
PROVIDERS: Emergency Provider Emergency Medicine; PCP Family Medicine
DX: S39.012A Strain of muscle, fascia and tendon of lower back, initial encounter (principal)
CPT/HCPCS: 96372; 99283; J1885; J2270